=== PATIENT | male | born 1965 | race Caucasian/White ===

== ENCOUNTER 2016-11-08 08:34 | Outpatient (CLI) | payer MEDICARE ==
[~2016-11-08] VITALS: Ht 175.3 cm; Wt 100.0 kg
--- NOTE | ~2016-11-08 | OP ---
PATIENT NAME: SAMANTA OSEGUERA MEDICAL RECORD: [id number] :61 LOCATION:D.CAT ADMISSION DATE: SURGEON: RAYMOND STEIN MD DATE OF OPERATION: 11/08/2016 PROCEDURES: 1. PTCA stent RCA. 2. Left heart catheterization. 3. Selective coronary angiography. 4. Left ventriculogram. 5. Intravascular ultrasound. PROCEDURE IN DETAIL: After informed consent was obtained and after detailed explanation of risks, benefits as well as alternative therapies, the patient elected to proceed with angiogram and angioplasty. The right femoral area was prepped and draped in normal sterile fashion. The right femoral artery was cannulated via modified Seldinger technique with placement of 6-Haitian sheath. All catheters exchanged through this sheath. FINDINGS: Left ventriculogram was performed in the standard 30-degree CLEMONS view reveals preserved cardiac wall motion, ejection fraction estimated at 50%. SELECTIVE CORONARY ANGIOGRAPHY: 1. Left main showed no significant angiographic disease. 2. Left anterior descending has previously placed stent that is widely patent with no significant restenosis. No disease elsewise throughout the LAD or its branches. 3. Left circumflex has moderate irregularities, but no flow-limiting stenosis. 4. The right coronary has previously placed stent with greater than 80% in-stent restenosis confirmed by intravascular ultrasound. PTCA STENT OF THE RCA: The stent used is a 3.5 x 16 mm Promus. Result was 0% residual stenosis. OVERALL IMPRESSION: Successful percutaneous transluminal coronary angioplasty stent of the right coronary artery going from greater than 80% initial stenosis to 0% residual. TRANSINT:[id number] Voice Confirmation ID: [id number] DOCUMENT ID: [id number] RAYMOND STEIN MD CC: [id number] DICTATION DATE: 11/08/16 112 MACHINE DESIGNER: 11/08/16 1900 DEP CLI 11/08/16 [facility] [address] [place] [address]
--- NOTE | ~2016-11-08 | HEMODYNAMI ---
PATIENT:SAMANTA OSEGUERA MEDICAL RECORD: [id number] : 61 LOCATION:[facility] ADMISSION DATE: 11/08/16 Generatedon:11/08/201611:30 Patient name: SAMANTA OSEGUERA Patient #: [id number] SSN: [id number] : 1965 Date of study: 11/08/2016 Page: Of Hemodynamic Procedure Report Patient Data Patient Demographics Procedure consent was obtained First Name: SAMANTA Gender: Male Last Name: OUMAR : 1965 Middle Initial: KRISTEN Age: 51 year(s) Patient #: [id number] Race: SSN: [id number] Additional ID: [id number] Contact details Address: [address] [place] [address] ROAD State: [place] City: [facility] Zip code: [address] Past Medical History Allergies Allergen Reaction Date Comments Reported Other allergy 06/17/2014 ASA, Benzocaine, Lamictal, Neurotin, NSAIDS, Toradol, Trazadone, Ultram, Hydrocodone. Admission Admission Data Admission Date: 11/08/2016 Admission Time: 8:34 Admit Source: Other Height (in.): 71 BSA: 2.17 (m2) Height (cm.): 180.34 BMI: 29.85 (kg/m2) Weight (lbs.): 214 Weight (kg.): 97.07 Lab Results Lab Result Date: 11/08/2016 Lab Result Time: 0:00 Biochemistry Name Units Result Min Max BUN mg/dl 23 --(----)-* 7 18 Creatinine mg/dl 1.2 --(---*)-- 0.6 1.3 CBC Name Units Result Min Max Hemoglobin g/dl 16.4 --(--*-)-- 13.5 17.5 Procedure Procedure Types Cath Procedure Diagnostic Procedure LHC LHC w/Coronaries Thomas Insertion Procedure Description Procedure Date Procedure Date: 11/08/2016 Procedure Start Time: 11:03 Procedure End Time: 11:27 Procedure Staff Name Function Clint العراقي MD Performing Physician Asa Carrillo RT Scrub Venancio Martinez RN Nurse Ailyn Francis RT Monitor Procedure Data Cath Procedure Fluoroscopy Diagnostic fluoroscopy Total fluoroscopy Time: 3.6 time: 3.6 min min Diagnostic fluoroscopy Total fluoroscopy dose: 184 dose: 184 mGy mGy Contrast Material Contrast Material Type Amount (ml) Isovue 300 70 Entry Location Entry Primary Successful Side Size Upsize Upsize Entry Closure Succes sful Closure Location (Fr) 1 (Fr) 2 (Fr) Remarks Device Remarks Femoral Right 5 Fr 6 Fr Exoseal artery Short Estimated blood loss: 10 ml Diagnostic catheters Device Type Used For End Catheter Placement Cordis 5Fr Pigtail Procedure Catheter (MP) Cordis 5Fr JL 4.0 Procedure Catheter (MP) Cordis 5Fr 3DRC Catheter Procedure (MP) Procedure Complications No complications Procedure Medications Medication Administration Route Dosage Oxygen NC 2 l/min Lidocaine 2% added to field 20 Heparin Flush Bag added to field 2 bags (1000units/500ml NS) 0.9% NaCl I.V. 100 ml/hr Refer to Anesthesia Notes for Sedation Medications Heparin Bolus I.V. 4000 units Hemodynamics Rest BSA: 2.17 (m2) HGB: 16.4 (g/dl) O2 Consumption: Estimated: 249.59 (ml/min) O2 Co nsumption indexed: Estimated:115.02 (ml/min/m) Heart Rate: 60 (bpm) Pressure Samples Time Site Value (mmHg) Purpose Heart Use Rate(bpm) 11:04 LV 95/10,13 Snapshot 71 Gradients Valve Time Site Site Mean SEP/DFP Peak To Heart Use 1 2 (mmHg) (sec/min) Peak Rate (mmHg) (bpm) Aortic 11:04 LV AO 69 Snapshots Pre Cath Intra NCS Post Cath Vital Signs Time Heart Resp SPO2 NIBP Rhythm Pain Sedation Rate (ipm) (%) (mmHg) Status Level (bpm) 10:30:24 61 16 98 105/67(88) NSR 0 (11) 10(A) , No pain 10:34:40 62 18 99 115/64(86) NSR 0 (11) 10(A) , No pain 10:38:52 60 24 99 112/69(89) NSR 0 (11) 10(A) , No pain 10:43:06 62 20 97 114/65(83) NSR 0 (11) 10(A) , No pain 10:47:20 59 16 98 113/64(83) NSR 0 (11) 10(A) , No pain 10:51:34 63 16 95 111/57(88) NSR 0 (11) 10(A) , No pain 10:55:44 63 18 96 110/63(85) NSR 0 (11) 10(A) , No pain 10:59:56 65 17 99 111/64(80) NSR 0 (11) 10(A) , No pain 11:04:10 70 21 93 94/57(73) NSR 0 (11) 9(A) , No pain 11:08:20 71 17 98 106/61(77) NSR 0 (11) 9(A) , No pain 11:12:33 69 29 94 107/56(69) NSR 0 (11) 9(A) , No pain 11:16:50 69 27 92 92/47(65) NSR 0 (11) 9(A) , No pain 11:21:02 68 21 94 85/58(71) NSR 0 (11) 9(A) , No pain 11:25:14 69 20 93 87/50(77) NSR 0 (11) 9(A) , No pain 11:28:49 69 17 95 102/59(74) NSR 0 (11) 10(A) , No pain Medications Time Medication Route Dose Verified Delivered Reason Notes Effectiveness by by 10:47:40 Oxygen NC 2 Clint Craft used for l/min Malcom Martinez RN procedure 10:47:51 Lidocaine 2% added 20ml Clint Jaramillo for local pt sta dutch to vial Malcom العراقي MD anesthetic allergy to field oral benzocaine only in oragel. 10:48:01 Heparin Flush added 2 Clint Jaramillo used for Bag to bags Malcom العراقي MD procedure (1000units/500ml field NS) 10:48:11 0.9% NaCl I.V. 100 Clint Craft Per physician ml/hr Malcom Martinez RN 10:48:17 Refer to Clint Craft Anesthesia Notes Malcom Martinez RN for Sedation Medications 11:12:18 Heparin Bolus I.V. 4000 Clint Craft for verifi ed units Tauth MD Martinez RN anticoagulation with dr العراقي Procedure Log Time Note 10:18:10 Patient Height : 180.34 cm 10:18:16 Patient Weight : 97.07 kg 10:18:16 Admit Source: Other 10:18:52 Diagnostic Cath Status : Elective 10:19:24 Asa Carrillo RT(R) (CV) sent for patient. Start room use. 10:19:41 Time tracking: Regular hours 10:19:47 Plan of Care:Hemodynamics will remain stable., Cardiac rhythm will remain stable., Comfort level will be maintained., Respiratory function will remain adequate., Patient/ family verbilizes understanding of procedure., Procedure tolerated without complication., Recovers from procedure without complications.. 10:19:55 Patient received from Pre/Post Procedure Room to CCL 3 Alert and oriented. Tansferred to table in Supine position. 10:28:59 Warm blankets applied, and bianka hugger turned on for patient comfort. 10:28:59 Correct patient and procedure confirmed by team. 10:29:02 Signed procedure consent form obtained from patient. 10:29:07 ECG and BP/O2 sat monitors applied to patient. 10:29:14 Vital chart was started 10:29:40 H&P Date Dictated: 11/05/2016 Within 30 days and on chart., H&P Addendum completed by physician on day of procedure. (MUST COMPLETE FOR ALL OUTPATIENTS). 10:29:51 Pre-procedure instructions explained to patient. 10:29:53 Family in waiting room. 10:29:55 Patient NPO since Midnight. 10:30:01 Is the patient allergic to Iodine/contrast media? No. 10:37:24 Is patient on blood thinner?Yes 10:37:28 ACC The patient was administered the following blood thiners within the last 24 hours: ACCPlavix 10:37:30 Patient diabetic? No. 10:38:03 Previous problem with sedation/anesthesia? Yes TIVA 10:38:05 Snore? Yes 10:38:06 Sleep apnea? Yes 10:38:18 Patient pain scale 0/10 ?. 10:38:31 IV patent on arrival in right forearm with 0.9% NaCl at O. 10:40:42 Lab results completed and on chart. 10:40:49 Right groin area was prepped with chlora-prep and draped in sterile fashion 10:40:51 Alarms reviewed by R. N. 10:40:51 Sharps counted by scrub and verified by R.N. 10:40:54 Physician paged 10:41:30 lorraine Mobley present and monitoring patient for TIVA. 10:42:32 Baseline sample Acquired. 10:42:45 Rhythm: sinus rhythm 10:42:47 Full Disclosure recording started 10:43:11 Dentures? No ? 10:44:03 Zero performed for pressure channel P1 10:47:40 Oxygen 2 l/min NC was administered by Venancio Martinez RN; used for procedure; 10:47:51 Lidocaine 2% 20ml vial added to field was administered by Clint العراقي MD; for local anesthetic; pt states allergy to oral benzocaine only in oragel. 10:48:01 Heparin Flush Bag (1000units/500ml NS) 2 bags added to field was administered by Clint العراقي MD; used for procedure; 10:48:11 0.9% NaCl 100 ml/hr I.V. was administered by Venancio Martinez RN; Per physician; 10:48:17 Refer to Anesthesia Notes for Sedation Medications was administered by Venancio Martinez RN; ; 10:48:58 Lab Result : Creatinine 1.2 mg/dl 10:48:58 Lab Result : BUN 23 mg/dl 10:48:58 Lab Result : Hemoglobin 16.4 g/dl 10:59:02 Physician arrived 10:59:03 --------ALL STOP TIME OUT------ 10:59:04 Final Timeout: patient, procedure, and site verified with staff and physician. All members of the team are in agreement. 10:59:06 Right groin site verified by team. 10:59:13 Sedation plan: TIVA Propofol 10:59:27 Use device set Femoral Dx 10:59:30 Acist Syringe opened to sterile field. 10:59:39 Bag Decanter opened to sterile field. 10:59:40 Medline Cath Pack opened to sterile field. 10:59:40 Terumo 5Fr [place] Sheath opened to sterile field. 10:59:41 St Riley 260cm J .035 wire opened to sterile field. 10:59:42 Acist Hand Control opened to sterile field. 10:59:43 Acist Manifold opened to sterile field. 10:59:43 Diagnostic Infinity 5Fr Multipack catheter opened to sterile field. 10:59:44 Tegaderm 4 x 4 opened to sterile field. 11:00:38 Procedure started. 11:03:07 Local anesthetic to right femoral artery with Lidocaine 2% by Clint العراقي MD.INITIAL ACCESS ONLY 11:03:16 A 5 Fr sheath was inserted into the Right Femoral artery 11:03:46 A Cordis 5Fr Pigtail Catheter (MP) was advanced over the wire and used for Procedure. 11:04:38 EF : 50 % 11:04:56 Catheter removed. 11:05:03 A Cordis 5Fr JL 4.0 Catheter (MP) was advanced over the wire and used for Procedure. 11:05:10 LCA angiography performed. 11:05:33 Catheter removed. 11:05:41 A Cordis 5Fr 3DRC Catheter (MP) was advanced over the wire and used for Procedure. 11:06:48 RCA angiography performed. 11:09:18 Catheter removed. 11:09:36 Sheath upsized to a 6 Fr Short. 11:10:22 6 Fr #DRC SH guide catheter was inserted over the wire 11:10:31 Whisp wire advanced. 11:10:33 Wire advanced across lesion. 11:10:35 Medtronic Launcher 6Fr 3DRC SH guide catheter opened to sterile field. 11:10:48 Terumo 6Fr [place] Sheath opened to sterile field. 11:10:49 to be BasixCompak Inflation Kit opened to sterile field. 11:10:50 [place]ag[place] IVUS Catheter opened to sterile field. 11:10:51 Lafleur Whisper J 300cm 0.014 guide wire opened to sterile field. 11:11:13 IVUS catheter advanced over wire. 11:12:18 Heparin Bolus 4000 units I.V. was administered by Venancio Martinez RN; for anticoagulation; verified with dr العراقي 11:13:25 IVUS catheter removed over wire. 11:14:08 Inflation number: 1 A Euphora 3.5 x 15 Balloon was prepped and advanced across the Prox RCA, then inflated to 17 BJORN for 0:07 (min:sec). 11:15:04 Balloon removed over the wire. 11:16:38 Inflation Number: 2 A Promus Premier OTW 3.5 x 16 stent was prepped and advanced across the Prox RCA. The stent was deployed at 17 BJORN for 0:11 (min:sec). 11:16:52 Wire removed. 11:16:52 Guide catheter removed. 11:17:02 Sheath removed intact; hemostasis achieved with Exoseal to the Right Femoral artery. 11:17:14 Cordis 6Fr Exoseal opened to sterile field. 11:17:58 Procedure ended.(Physican Out) 11:18:32 Fluoroscopy time 03.60 minutes. 11:18:37 Fluoroscopy dose: 184 mGy 11:18:37 Flurop Dose total: 184 11:18:45 Contrast amount:Isovue 300 70ml. 11:18:50 Insertion/operative site no bleeding no hematoma. 11:18:55 Post right femoral artery:stable 11:19:10 Post Procedure Pulses reassessed and unchanged 11:19:14 Post-procedure physical assessment completed. ASA score P 2 - A patient with mild systemic disease as per Clint العراقي MD. 11:19:17 Post procedure rhythm: unchanged. 11:19:23 Estimated blood loss: 10 ml 11:19:24 Post procedure instruction explained to patient.Patient verbalizes understanding. 11:20:03 Patient needs reinforcement of post procedure teaching. 11:20:22 Procedure type changed to Cath procedure, Diagnostic procedure, LHC, LHC w/Coronaries, Thomas Insertion 11:20:23 Procedure and supply charges have been captured, reviewed, submitted and are correct. 11:21:01 16FR Thomas w/Drainage Bag opened to sterile field. 11:21:54 Thomas Catheter order per physician due to urinary retention. 11:22:10 Procedure Complication : No complications 11:27:30 Vital chart was stopped 11:27:30 See physician's report for complete and final results. 11:27:33 Report given to Pre/Post Procedure Room. 11:27:49 Patient transfered to Pre/Post Procedure Room with Stretcher. 11:27:51 Procedure ended. 11:27:51 Full Disclosure recording stopped 11:27:57 End room use (Document Last) Intervention Summary Intervention Notes Time ActionType Lesion and Equipment Action# Pressure Duration Attributes Used 11:14:08 Inflate Prox RCA Euphora 1 17 00:07 balloon 3.5 x 15 Balloon 11:16:38 [address] stent Prox RCA Promus 2 17 00:11 Premier OTW 3.5 x 16 stent Device Usage Item Name Manufacture Quantity Catalog Number Hospital Part Current Mini mal Lot# / Charge Number Stock Stock Serial# Code Acist Acist 1 38267 [id number] 134854 517708 20 Syringe Medical Systems Inc Bag Microtek 1 [id number] 79289 607188 5 Decanter Medical Inc. Medline Cardinal 1 [id number] 266507 45204 209641 5 Cath Pack Health Terumo 5Fr Terumo 1 [id number] 844521 965744 557433 [address] [facility] 1 357758 569186 253585 787777 30 260cm J .035 wire Acist Hand Acist 1 18919 768277 560786 541250 5 Control Medical Systems Inc Acist Acist 1 51732 386980 015466 318012 5 Manifold Medical Systems Inc Diagnostic Cardinal 1 [id number] 900768 61698 487085 30 Infinity Health 5Fr Multipack catheter Tegaderm 4 3M 1 [id number] 144673 278885 382293 5 x 4 Cordis 5Fr Cardinal 1 911509 5 Pigtail Health Catheter (MP) Cordis 5Fr Cardinal 1 034416 5 JL 4.0 Health Catheter (MP) Cordis 5Fr Cardinal 1 773974 5 3DRC Health Catheter (MP) Medtronic Medtronic 1 [id number] 945055 376269 192898 1 Launcher 6Fr 3DRC SH guide catheter Terumo 6Fr Terumo 1 [id number] 651594 636605 451108 40 [place] Sheath Merit Merit 1 [id number] 384528 525226 349784 15 BasixScouponidMantis Digital Arts Medical Inflation Kit [place] 1 [id number] 299661 340078 919444 8 [place] E[place] IVUS Catheter Lafleur Lafleur 1 [id number] 723162 585694 334498 5 Whisper J Vascular 300cm 0.014 guide wire Euphora 3.5 Medtronic 1 [id number] 718278 444877 573349 5 [id number] x 15 Balloon Promus [place] 1 [id number] 843345 605160 5 [id number] Premier OTW Scientific 3.5 x 16 stent Cordis 6Fr Cardinal 1 [id number] 928707 593172 682048 10 Exoseal Health 16FR Thomas Bard 1 [id number] 915365 323352 722625 5 w/Drainage Bag Signature Audit [place] Stage Time Signature Unsigned Intra-Procedure 11/08/2016 Ailyn Francis 11:30:27 AM RT(R) Signatures Monitor : Ailyn Francis Signature : RT Date : Time : [id number] [place] [address]
[~2016-11-08 08:34] MED LIST: AMBIEN10 MG PO; BRILINTA90 MG PO; COLACE100 MG PO; COUMADIN3 MG PO; COUMADIN5 MG PO; DEMEROL50 MG PO; DUONEB 2.5-0.5 M3 ML NEB; DUONEB 2.5-0.5 M3 ML UPD; DURAGESIC1 PATCH .1 TD; EFFEXOR XR150 MG; EFFEXOR XR150 MG PO; FLOMAX0.4 MG PO; FLOVENT DI50 MCG/DIS INH; FLUTICASONE PRO16 GM NASAL; HYDROCHLOROTH12.5 M1 PO; ISOSORBIDE MONO30 M1 PO; K-DUR20 MEQ PO; LEVAQUIN500 MG PO; METOPROLOL TART50 MG PO; MORPHINE SULFAT15 M3 PO; MS CONTIN30 MG PO; MULTIPLE VITAMI1 TA1 PO; MYSOLINE 50 MG50 MG PO; NEURONTIN 400400 MG PO; NEURONTIN800 MG PO; NICODERM C1 PATCH .3 TD; NITROSTAT0.4 MG SL; NYSTATIN ORAL SU5 ML PO; OXYCODONE HCL5 MG PO; PEPCID20 MG PO; PERCOCET 10/3251 TA1 PO; PERCOCET 5/3251 TA1 PO; PLAVIX75 MG PO; PROVENTIL HFA6.7 GM INH; SEROQUEL100 MG PO; SYMBICORT 16010.2 GM INH; SYMBICORT 80-10.2 GM INH; TYLENOL 8 HOUR650 MG PO; VENTOLIN HFA18 GM INH; VITAMIN B-1000 MCG/M IM; VITAMIN D5000 UNIT PO; ZITHROMAX250 MG PO
[2016-11-08] MEDS ORDERED: BUTRANS1 EAC4 TRANSDERM (09:28)
[2016-11-08] MEDS ORDERED: LYRICA150 MG PO (09:29)
[2016-11-08] MEDS ORDERED: CYCLOBENZAPRINE10 MG PO (09:30)
[2016-11-08 09:41] VITALS: BP 117/69; Ht 175.3 cm; Wt 100.0 kg
[2016-11-08 10:05] LABS: BASOPHILS 0.9 % (0-2); EOSINOPHILS 5.6 % (0-7); HEMATOCRIT 47.6 % (42.0-54.0); HEMOGLOBIN 16.4 g/dL (13.5-17.5); IMMATURE GRANULOCYTES 0.6 % (0-5); LYMPHOCYTES 27.8 % (15-50); MCH 31.7 pg (26.0-34.0); MCHC 34.5 g/dL (31.0-37.0); MCV 91.9 fL (80.0-100.0); MEAN PLATELET VOLUME 10.5 fL (7.4-10.4); MONOCYTES 11.2 % (2-11); NEUTROPHILS 53.9 % (40-80); PLATELET COUNT 232 10x3/uL (130-400); RBC 5.18 10x6/uL (4.20-6.10); RDW 14.1 % (11.5-14.5); WBC 9.9 10x3/uL (4.8-10.8)
[2016-11-08 10:29] LABS: ANION GAP 12.6 mmol/L (8-16); CALCIUM 10.2 mg/dL (8.5-10.1); CARBON DIOXIDE 28.8 mmol/L (21.0-32.0); CREATININE - SERUM 1.2 mg/dL (0.6-1.3); POTASSIUM - SERUM 4.4 mmol/L (3.5-5.1)
--- NOTE | 2016-11-08 11:54 | NUR ---
1140 RECEIVED PT FROM [facility]PLITTER, PT IS AWAKE, DENIES ANY C/O AT THIS TIME. DRESSING TO RIGHT GROIN IS CDI, NO BLEEDING OR HEMATOMA NOTED. AREA IS SOFT AND NON-TENDER. PEDAL PULSES PALPABLE. SODA SERVED AT PT REQUEST. TURKEY SANDWICH OFFERED, PT DECLINED STATING AGAINST HIS CAODAISM TO EAT ANYTHING WITH A BALD HEAD. IS AGREEABLE TO A TUNA SALAD SANDWICH AND THIS ORDERED FROM KITCHEN. CALL LIGHT IN REACH. PT HAS MEEK CATH TO GRAVITY DRAINAGE, APPROX 300 CC CLEAR YELLOW URINE IN BAG. PT STATES HAS TROUBLE URINATING WHILE ON BEDREST SO ALWAYS REQUESTS CATHETER. NO FAMILY AT BEDSIDE. INSTRUCTED PT TO KEEP HEAD TO PILLOW AND RIGHT LEG STRAIGHT AND PT VERBALIZES UNDERSTANDING.
--- NOTE | 2016-11-08 12:05 | NUR ---
1200 PT DENIES ANY C/O. RIGHT GROIN DRESSING IS CDI, AREA IS SOFT AND NONTENDER. VSS, WILL CONTINUE TO MONITOR.
--- NOTE | 2016-11-08 12:53 | NUR ---
1245 PT DENIES ANY C/O. DRESSING TO RIGHT GROIN IS CDI, NO BLEEDING OR HEMATOMA NOTED. PEDAL PULSES PALPABLE. TRICE KELLY SERVED. MEEK CATH DRAINING CLEAR YELLOW URINE. PT DENIES ANY CHEST DISCOMFORT. VSS.
--- NOTE | 2016-11-08 13:16 | NUR ---
1315 PT DENIES ANY C/O. DRESSING TO RIGHT GROIN IS CDI, NO BLEEDING OR HEMATOMA NOTED. CAP REFILL IS BRISK, PEDAL PULSES PALPABLE.
--- NOTE | 2016-11-08 14:14 | NUR ---
1335 PT C/O CHRONIC HIP AND TESTICLE PAIN, STATES HAS APPOINTMENT FOR NERVE CAUTERIZATION IN THE FUTURE FOR THIS PAIN, REQUESTS PAIN MED, NEW ORDER RECEIVED.
--- NOTE | 2016-11-08 14:17 | NUR ---
1420 PT SLEEPING, RR EVEN AND UNLABORED. RIGHT GROIN STABLE WITH NO BLEEDING OR HEMATOMA NOTED. PEDAL PULSES PALPABLE.
--- NOTE | 2016-11-08 17:28 | NUR ---
1500 PT AWAKE, DENIES ANY C/O AT THIS TIME. DRESSING TO RIGHT GROIN IS CDI, NO BLEEDING OR HEMATOMA NOTED. CAP REFILL IS BRISK, PEDAL PULSES PALPABLE. 1515 MEEK CATH DC'D WITH CATH TIP INTACT AFTER BULB DEFLATED. APPROX 1000 CC CLEAR YELLOW URINE NOTED TO BAG. PT MONET WELL. IV DC'D WITH CATH INTACT, PT SITTING UPRIGHT, DRESSING REMAINS CDI. 1530 PT HAS DRESSED FOR DC TO HOME. DR STEIN HAS ROUNDED ON PT. REVIEWED DC INSTRUCTIONS WITH PT WHO VERBALIZES UNDERSTANDING. INSTRUCTED PT TO RESUME HOME MEDICATIONS AND TAKE PLAVIX USUAL TONIGHT. PT VERBALIZES UNDERSTANDING. PT ESCORTED TO [facility] VIA FOR TRANSPORT TO HOME. PT WITHOUT C/O AT TIME OF DC.
== END 2016-11-08 17:10 | disposition home or self-care (01) ==
LOC: D.CATH 08:34
PROVIDERS: Internal Medicine Interventional Cardiology
DX: I25.119 Atherosclerotic heart disease of native coronary artery with unspecified angina pectoris (principal); T82.855A Stenosis of coronary artery stent, initial encounter; Z01.812 Encounter for preprocedural laboratory examination
CPT/HCPCS: 93458; 92978; C9600

== ENCOUNTER → 2017-03-19 14:08 | Outpatient (CLI) | payer MEDICARE ==
[2016-11-08 09:41] VITALS: BMI 32.5
[~2017-03-19 14:08] MED LIST changes: +BUTRANS1 EAC4 TRANSDERM; +CYCLOBENZAPRINE10 MG PO; +LYRICA150 MG PO
== END | disposition home or self-care (01) ==
LOC: D.CT 14:08
DX: R59.0 Localized enlarged lymph nodes (principal)

== ENCOUNTER 2017-05-01 12:58 | Observation (INO) | payer MEDICARE ==
[~2017-05-01] VITALS: Ht 175.3 cm; Wt 93.1 kg
--- NOTE | ~2017-05-01 | HEMODYNAMI ---
PATIENT:SAMANTA OSEGUERA MEDICAL RECORD: [id number] : 61 LOCATION[facility] [id number] ADMISSION DATE: 05/01/17 Generatedon:05/02/201712:34 Patient name: SAMANTA OSEGUERA Patient #: [id number] SSN: [id number] : 1965 Date of study: 05/02/2017 Page: Of Hemodynamic Procedure Report Patient Data Patient Demographics Procedure consent was obtained First Name: SAMANTA Gender: Male Last Name: OUMAR : 1965 [facility] Initial: KRISTEN Age: 51 year(s) Patient #: [id number] Race: SSN: [id number] Additional ID: [id number] Contact details Address: [address] [place] [address] ROAD State: [place] City: [facility] Zip code: [address] Past Medical History Allergies Allergen Reaction Date Comments Reported Other allergy 06/17/2014 ASA, Benzocaine, Lamictal, Neurotin, NSAIDS, Toradol, Trazadone, Ultram, Hydrocodone. Admission Admission Data Admission Date: 05/01/2017 Admission Time: 21:21 Arrival Date: 05/01/2017 Arrival Time: 21:21 Admit Source: Other Insurance Payor: Medicare Room #: D.2124 Lab Results Lab Result Date: 05/02/2017 Lab Result Time: 0:00 Biochemistry Name Units Result Min Max BUN mg/dl 14 --(--*-)-- 7 18 Creatinine mg/dl 1 --(--*-)-- 0.6 1.3 CBC Name Units Result Min Max Hemoglobin g/dl 16.7 --(---*)-- 13.5 17.5 Procedure Procedure Types Cath Procedure Diagnostic Procedure [facility] w/Coronaries Procedure Description Procedure Date Procedure Date: 05/02/2017 Procedure Start Time: 12:21 Procedure End Time: 12:33 Procedure Staff Name Function Clint العراقي MD Performing Physician Candelaria Robb RT Monitor Tejas Soliman MD Additional personnel Venancio Martinez RN Nurse Asa Carrillo RT Monitor Procedure Data Cath Procedure Fluoroscopy Diagnostic fluoroscopy Total fluoroscopy Time: 1.1 time: 1.1 min min Diagnostic fluoroscopy Total fluoroscopy dose: 333 dose: 333 mGy mGy Contrast Material Contrast Material Type Amount (ml) Isovue 300 55 Entry Location Entry Primary Successful Side Size Upsize Upsize Entry Closure Succes sful Closure Location (Fr) 1 (Fr) 2 (Fr) Remarks Device Remarks Femoral Right 5 Fr Exoseal artery Estimated blood loss: 10 ml Diagnostic catheters Device Type Used For End Catheter Placement MULTIPACK Pigtail 5 Fr Procedure catheter MULTIPACK JL 4.0 5Fr Procedure catheter MULTIPACK 3DRC 5Fr Procedure catheter Procedure Medications Medication Administration Route Dosage Oxygen NC 6 l/min Lidocaine 2% added to field 20 Heparin Flush Bag added to field 2 bags (1000units/500ml NS) 0.9% NaCl I.V. 100 ml/hr Refer to Anesthesia Notes for Sedation Medications Hemodynamics Rest HGB: 16.7 (g/dl) Heart Rate: 62 (bpm) Pressure Samples Time Site Value (mmHg) Purpose Heart Use Rate(bpm) 12:23 LV 88/8,9 Snapshot 58 Snapshots Pre Cath Intra NCS Post Cath Vital Signs Time Heart Resp SPO2 etCO2 NIBP Rhythm Pain Sedation Rate (ipm) (%) (mmHg) (mmHg) Status Level (bpm) 12:14:44 61 20 96 20.3 134/72(81) NSR 0 (11) 10(A) , No pain 12:18:58 60 17 97 39.9 109/70(85) NSR 0 (11) 10(A) , No pain 12:23:10 58 20 96 39.9 106/65(79) NSR 0 (11) 9(A) , No pain 12:27:20 56 18 96 39.2 103/63(76) NSR 0 (11) 9(A) , No pain 12:31:23 59 26 96 33.9 114/72(86) NSR 0 (11) 10(A) , No pain Medications Time Medication Route Dose Verified Delivered Reason Notes E ffectiveness by by 12:16:58 Oxygen NC 6 l/min Clint Craft used for Malcom Martinez rail car maintenance mechanic 12:17:05 Lidocaine 2% added 20ml Clint Jaramillo for local to vial Malcom العراقي MD anesthetic field 12:17:11 Heparin Flush added 2 bags Clint Jaramillo used for Bag to Malcom العراقي MD procedure (1000units/500ml field NS) 12:17:29 0.9% NaCl I.V. 100ml/hr Clint Craft Per Malcom Martinez RN physician 12:17:36 Refer to Clint Craft Anesthesia Notes Malcom Martinez RN for Sedation Medications Procedure Log Time Note 11:39:46 Ailyn Francis RT(R) sent for patient. Start room use. 11:39:47 Time tracking: Regular hours 11:39:52 Plan of Care:Hemodynamics will remain stable., Cardiac rhythm will remain stable., Comfort level will be maintained., Respiratory function will remain adequate., Patient/ family verbilizes understanding of procedure., Procedure tolerated without complication., Recovers from procedure without complications.. 11:40:14 Informed consent obtained and on chart 11:40:46 Admit Source: Other 11:40:54 Arrival Date: 05/01/2017 9:21:00 PM 11:41:07 Insurance Payor : Medicare 11:41:28 Lab Result : Hemoglobin 16.7 g/dl 11:41:28 Lab Result : Creatinine 1 mg/dl 11:41:28 Lab Result : BUN 14 mg/dl 12:13:27 Patient received from Med II to [facility] 2 Alert and oriented. Tansferred to table in Supine position. 12:13:29 Warm blankets applied, and bianka hugger turned on for patient comfort. 12:13:29 Correct patient and procedure confirmed by team. 12:13:32 Signed procedure consent form obtained from patient. 12:13:33 ECG and BP/O2 sat monitors applied to patient. 12:13:34 Vital chart was started 12:13:35 Baseline sample Acquired. 12:13:39 Rhythm: sinus rhythm 12:13:40 Full Disclosure recording started 12:13:47 H&P Date Dictated: 05/01/2017 Within 30 days and on chart., H&P Addendum completed by physician on day of procedure. (MUST COMPLETE FOR ALL OUTPATIENTS). 12:13:49 Pre-procedure instructions explained to patient. 12:13:51 Family unavailable. 12:13:53 Patient NPO since Midnight. 12:14:05 Is the patient allergic to Iodine/contrast media? No. 12:14:20 Is patient on blood thinner?Yes 12:14:23 ACC The patient was administered the following blood thiners within the last 24 hours: ACCPlavix 12:14:29 Snore? Yes 12:14:35 Airway obstruction? Yes COPD 12:14:39 Dentures? No ? 12:14:45 IV patent on arrival in right forearm with 0.9% NaCl at [facility]. 12:14:52 Lab results completed and on chart. 12:14:55 Right groin area was prepped with chlora-prep and draped in sterile fashion 12:14:56 Alarms reviewed by R. N. 12:14:57 Sharps counted by scrub and verified by R.N. 12:14:58 Physician paged 12:14:59 Physician arrived 12:15:00 --------ALL STOP TIME OUT------ 12:15:00 Final Timeout: patient, procedure, and site verified with staff and physician. All members of the team are in agreement. 12:15:04 Right groin site verified by team. 12:15:08 Physical assessment completed. ASA score P 2 - A patient with mild systemic disease as per Clint العراقي MD. 12:15:13 Sedation plan: TIVA Medication:Propofol 12:15:36 Tejas Soliman MD present and monitoring patient for TIVA. 12:16:01 Use device set Femoral Dx 12:16:03 ACIST Syringe (99358) opened to sterile field. 12:16:03 Bag Decanter (2002S) opened to sterile field. 12:16:03 Medline Cath Pack ([id number]) opened to sterile field. 12:16:04 SHEATH 5FR Glade Spring (NKY256) opened to sterile field. 12:16:04 DIAGNOSTIC WIRE .035 260cm J wire ([id number]) opened to sterile field. 12:16:06 ACIST Hand Control (13717) opened to sterile field. 12:16:06 ACIST Manifold (12374) opened to sterile field. 12:16:07 DIAGNOSTIC Multipack 5Fr catheter set ([id number]) opened to sterile field. 12:16:07 Tegaderm 4 x 4 (1626W) opened to sterile field. 12:16:08 PERCUTANEOUS ENTRY 19GA needle opened to sterile field. 12:16:58 Oxygen 6 l/min NC was administered by Venancio Martinez RN; used for procedure; 12:17:05 Lidocaine 2% 20ml vial added to field was administered by Clint العراقي MD; for local anesthetic; 12:17:11 Heparin Flush Bag (1000units/500ml NS) 2 bags added to field was administered by Clint العراقي MD; used for procedure; 12:17:29 0.9% NaCl 100ml/hr I.V. was administered by Venancio Martinez RN; Per physician; 12:17:36 Refer to Anesthesia Notes for Sedation Medications was administered by Venancio Martinez RN; ; 12:19:27 Patient diabetic? No. 12:19:32 Sleep apnea? Yes 12:19:34 Deviated septum? No 12:19:35 Opens mouth fully? Yes 12:19:37 Sticks out tongue? Yes 12:21:54 Procedure started. 12:21:58 Local anesthetic to right femoral artery with Lidocaine 2% by Clint العراقي MD.INITIAL ACCESS ONLY 12:22:08 Zero performed for pressure channel P1 12:23:01 A 5 Fr sheath was inserted into the Right Femoral artery 12:23:16 A MULTIPACK Pigtail 5 Fr catheter was advanced over the wire and used for Procedure. 12:24:03 LV hemodynamics recorded. 12:24:05 LV gram done using CLEMONS 12:24:10 EF : 55 % 12:24:13 Catheter removed. 12:24:23 A MULTIPACK JL 4.0 5Fr catheter was advanced over the wire and used for Procedure. 12:24:52 LCA angiography performed. 12:25:07 Catheter removed. 12:25:18 A MULTIPACK 3DRC 5Fr catheter was advanced over the wire and used for Procedure. 12:26:40 RCA angiography performed. 12:26:54 Catheter removed. 12:27:01 EXOSEAL 5Fr (EX500) opened to sterile field. 12:27:38 Sheath removed intact; hemostasis achieved with Exoseal to the Right Femoral artery. 12:27:41 Procedure ended.(Physican Out) 12::54 Fluoroscopy time 01.10 minutes. 12:28:02 Fluoroscopy dose: 333 mGy 12:28:02 Flurop Dose total: 333 12:28:07 Contrast amount:Isovue 300 55ml. 12:28:10 Sharps counted by scrub and verified by R.N. 12:31:30 Insertion/operative site no bleeding no hematoma. 12:31:34 Post-op/insertion site Right Femoral artery dressed using a 4 x 4 and Tegaderm. 12:32:09 Post right femoral artery:stable 12:32:59 Post procedure rhythm: sinus bradycardia 12:33:06 Estimated blood loss: 10 ml 12:33:08 Post procedure instruction explained to patient.Patient verbalizes understanding. 12:33:09 Patient needs reinforcement of post procedure teaching. 12:33:15 Procedure and supply charges have been captured, reviewed, submitted and are correct. 12:33:16 Vital chart was stopped 12:33:18 See physician's report for complete and final results. 12:33:35 Report given to [facility]. 12:33:39 Patient transfered to [facility] with Bed. 12:33:41 Procedure ended. 12:33:41 Full Disclosure recording stopped 12:33:46 End room use (Document Last) Device Usage Item Name Manufacture Quantity Catalog Hospital Part Current Minimal Lot# / Number Charge Number Stock Stock Serial# Code ACIST Acist 1 15294 620226 930237 844433 20 Syringe Medical (26633) Systems Inc Bag Decanter Microtek 1 2001S 518695 30121 369255 5 (2001S) Medical Inc. Medline Cath Cardinal 1 [id number] 149560 67440 245470 5 Pack Health ([id number]) SHEATH 5FR Terumo 1 [id number] 482358 221337 144003 40 Glade Spring (HJA680) DIAGNOSTIC [facility] 1 585487 088375 724365 527262 30 WIRE .035 260cm J wire (894007) ACIST Hand Acist 1 21521 506023 276358 615503 5 Control Medical (71221) Systems Inc ACIST Acist 1 28625 008190 456682 586197 5 Manifold Medical (04244) Systems Inc DIAGNOSTIC Cardinal 1 [id number] 172387 45629 072859 30 Multipack Health 5Fr catheter set (AW2750) Tegaderm 4 x 3M 1 1626W 428784 176022 288257 5 4 (1626W) PERCUTANEOUS Cook Medical 1 V64680 922709 094481 5 ENTRY 19GA needle MULTIPACK Cardinal 1 320922 5 Pigtail 5 Fr Health catheter MULTIPACK JL Cardinal 1 [id number] 5 4.0 5Fr Health catheter MULTIPACK Cardinal 1 869982 5 3DRC 5Fr Health catheter EXOSEAL 5Fr Cardinal 1 EX500 898106 799418 609927 10 (EX500) Health Signature Audit [place] Stage Time Signature Unsigned Intra-Procedure 05/02/2017 Asa Carrillo 12:34:52 PM RT(R) (CV) Signatures Monitor : Candelaria Robb RT Signature : Date : Time : Monitor : Asa Carrillo RT Signature : Date : Time : [place] [id number] [place] [address]
[2017-05-01 13:42] LABS: BASOPHILS 0.5 % (0-2); EOSINOPHILS 1.1 % (0-7); HEMATOCRIT 48.1 % (42.0-54.0); HEMOGLOBIN 16.7 g/dL (13.5-17.5); IMMATURE GRANULOCYTES 0.5 % (0-5); LYMPHOCYTES 13.2 % (15-50); MCH 30.8 pg (26.0-34.0); MCHC 34.7 g/dL (31.0-37.0); MCV 88.6 fL (80.0-100.0); MEAN PLATELET VOLUME 10.4 fL (7.4-10.4); NEUTROPHILS 79.7 % (40-80); PLATELET COUNT 242 10x3/uL (130-400); RBC 5.43 10x6/uL (4.20-6.10); RDW 13.9 % (11.5-14.5); WBC 11.1 10x3/uL (4.8-10.8)
[2017-05-01 13:53] LABS: ALBUMIN 4.4 g/dL (3.4-5.0); ALKALINE PHOSPHATASE 94 U/L (46-116); ALT (SGPT) 38 U/L (10-68); BILIRUBIN - TOTAL 0.45 mg/dL (0.2-1.3); CALC OSMOLALITY 281 mosm/kg (275-300); CALCIUM 9.7 mg/dL (8.5-10.1); CARBON DIOXIDE 24.6 mmol/L (21.0-32.0); CHLORIDE - SERUM 105 mmol/L (98-107); GLUCOSE 131 mg/dL (74-106); POTASSIUM - SERUM 4.4 mmol/L (3.5-5.1); PROTEIN - SERUM 7.6 g/dL (6.4-8.2); SODIUM 140 mmol/L (136-145); UREA NITROGEN 14 mg/dL (7-18); eGFR NON AFRICAN AMERICAN 83 mL/min (90-120)
[2017-05-01 14:07] LABS: CHOLESTEROL, TOTAL 233 mg/dL (0-200); CKMB 2.8 U/L (0.0-3.6); CREATINE KINASE 127 UL (21-232); HDL CHOLESTEROL 39 mg/dL (32-96); LDL CHOLESTEROL 147 mg/dL (0-100); LDL-HDL RATIO 3.8 ratio (1.5-3.5); PRO BNP 133 pg/mL (0-125); TRIGLYCERIDE 238 mg/dL (30-200)
[2017-05-01 14:08] LABS: TROPONIN-I < 0.017 ng/mL (0.000-0.060)
--- NOTE | 2017-05-01 22:30 | NUR ---
PT ARRIVED TO ROOM. AAO X4. IV RIGHT AC. PT UP AD [place]ELYN. GAIT STEADY. BAGS OF CLOTHES WITH PT. PUT AT BEDSIDE. PT ORIENTED TO ROOM AND UNIT. DENIES ANY NEEDS. WILL CPOC
[2017-05-02] VITALS (11 sets, daily range): BP systolic 102–126; BP diastolic 54–75; Ht 175.3 cm; Wt 93.1 kg
--- NOTE | 2017-05-02 02:00 | NUR ---
PT ASLEEP. C-PAP ON NO S/S OF DISTRESS. WILL CPOC
--- NOTE | 2017-05-02 08:08 | NUR ---
PT SITTING UP IN BED DENIES NEEDS WILL CONT TO MONITOR
--- NOTE | 2017-05-02 12:30 | NUR ---
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 R GROIN SITE WNL WITH DRESSING CDI. PT TO LAY FLAT X2 HOURS. PT COMPLAINS OF NOT BEING ABLE TO PEE. BLADDER SCAN SHOWS 385 CC OF URINE IN BLADDER. WILL OBTAIN ORDER FOR STRAIGHT CATH..
--- NOTE | 2017-05-02 13:29 | NUR ---
ATTEMPTED TO STRAIGHT CATH PT UNSUCCESSFULL. PT REFUSED FOR SOMEONE ELSE TO TRY. STATES HE JUST HAS A "SHY BLADDER" AND ONCE HE CAN SIT UP IT WILL EASE UP.
--- NOTE | 2017-05-02 17:47 | NUR ---
PT SITTING UP IN BED SLEEPING NO S/S DISTRESS NOTED. R GROIN SITE STILL WNL. PT DENIES ANY PAIN OR DISCOMFORT.
--- NOTE | 2017-05-02 19:28 | NUR ---
PT WALKED OUT INTO HALLWAY AND C/O UPPER ABD PAIN AND ASKS FOR PAIN MEDS. PT GAIT STEADY WALKED BACK TO ROOM. PT DENIES ANY OTHER NEEDS NO S/S OF DISTRESS. WILL CPOC
--- NOTE | 2017-05-02 20:41 | NUR ---
PAIN MED GIVEN FOR PAIN. PT DENIES ANY OTHER NEEDS. NO S/S OF DISTRESS. BED LOW AND CALL LIGHT IN REACH. WILL CPOC
[2017-05-03 00:10] VITALS: BP 102/54
--- NOTE | 2017-05-03 07:30 | NUR ---
RECEIVED PT IN BED AAOX4 RESP UNLABORED SKIN W/D COLOR PALE PT DENIES ANY NEEDS OR DISCOMFORT AT THIS TIME WILL CONTINUE TO MONITOR
[2017-05-03 08:07] VITALS: BP 120/64
[2017-05-03 12:20] VITALS: BP 106/64
[2017-05-03] MEDS ORDERED: ISOSORBIDE MONO30 M1 PO (13:07)
[2017-05-03 15:32] VITALS: BP 113/71
--- NOTE | 2017-05-03 16:30 | NUR ---
REVIEWED DISCHARGE INSTRUCTIONS WITH PT STATES UNDERSTANDING COPY GIVEN DCD SALINE LOCK TO RAC WITH IV CATHETER INTACT SITE FREE OF REDNESS OR EDEMA PT DISCHARGED HOME IN STABLE CONDITION VIA W/C WITH ALL PERSONAL BELONGINGS TO FRONT ENTRANCE
--- NOTE | 2017-05-14 15:46 | HP ---
PATIENT: SAMANTA OSEGUERA MEDICAL RECORD: [id number] ACCOUNT: [id number] LOCATION:[address] : 61 ADMISSION DATE: 05/01/17 HISTORY AND PHYSICAL EXAMINATION ADMITTING DIAGNOSES: 1. Angina. 2. Coronary artery disease. 3. Previous multivessel percutaneous transluminal coronary angioplasty stent. 4. Hypertension. 5. Hyperlipidemia. HISTORY OF PRESENT ILLNESS: Mr. Oseguera has extensive cardiac history and multiple stents in the last 3 days, been having chest pain today. His chest pain escalated. He has nausea and vomiting with it. His EKG is with no acute ST-T changes. He continues to have the symptomatology. REVIEW OF SYSTEMS: The patient reports easy bruising but reports no swollen glands. The patient reports no fever, no night sweats, no significant weight gain, no significant weight loss. No significant exercise tolerance. The patient reports no dry eyes, no irritation, no vision change. Patient reports no difficulty hearing and no ear pain. Patient reports no frequent nose bleeds or nose and sinus problems. Patient reports on arm pain on exertion. No shortness of breath while lying down. No history of heart murmur. Patient reports no cough, no wheezing or coughing up blood. Patient reports no abdominal pain, no vomiting. Normal appetite. No diarrhea and not vomiting blood. No nausea and no constipation. Patient reports no incontinence. No difficulty urinating. No hematuria. No increased frequency. Patient reports no muscle aches. No weakness, no arthralgias, no back pain. No swelling of the extremities. Patient reports no abnormal mole, no jaundice, no rashes. Reports no loss of consciousness. No weakness and no numbness. No seizures, dizziness, or headaches. The patient reports no depression, no sleep disturbance, feeling safe in a relationship and no alcohol abuse. Patient reports on fatigue. Reports no runny nose or sinus pressure. No itching, no hives, and no frequent sneezing. PHYSICAL EXAMINATION: GENERAL APPEARANCE: Well-nourished, well-developed, appears stated age. Level of distress, comfortable. PSYCHIATRIC: Mental status, alert, normal affect. Orientation, oriented to time, place and person. EYES: Lids and conjunctiva, noninjected. No discharge, no pallor. ENT: Lips, teeth, gums, normal dentition. Oropharynx, no cyanosis, no pallor. NECK: Carotid arteries, bilateral normal upstroke, no bruits, no thrills. JUGULAR VEINS: No jugular venous pressure or distention. CERVICAL LYMPH NODES: Nontender, nonenlarged. THYROID: Not enlarged. Nontender. No nodules. LUNGS: Respiratory effort, unlabored. CHEST: Normal curvature. No thoracic deformity. No chest wall tenderness. Percussion, resonant. Auscultation, clear. No wheezes, no rales, no rhonchi. CARDIOVASCULAR: Precordial exam, nondisplaced. No heaves or pericardial thrills. Rate and rhythm, regular. Heart sounds, normal S1, normal S2. No S3, no gallop, no rub. Systolic murmur, not heard. Diastolic murmur, not heard. EXTREMITIES: No cyanosis, no edema. Peripheral pulses, full and equal in all extremities, except as noted. No bruits appreciated. HISTORY AND PHYSICAL [id number] OSEGUERA,SAMANTA CASTELLANOSW ABDOMEN: Soft, nondistended. Normal aorta. No bruit. Nontender. No masses. Liver, nontender, no hepatomegaly. Spleen, nontender, no splenomegaly. MUSCULOSKELETAL: No joint tenderness. No joint swelling. No erythema. NEUROLOGICAL: Normal gait, normal strength, normal tone. SKIN: Warm and dry. OVERALL IMPRESSION: Chest pain compatible with angina; however, no acute EKG changes. We will admit for observation. Repeat troponin in the morning to see how he does with this chest pain. TRANSINT:[id number] Voice Confirmation ID: [id number] DOCUMENT ID: [id number] RAYMOND STEIN MD at 1546 CC: [id number] DICTATION DATE: 05/01/17 1520 SHINGLE INSPECTOR: 05/01/17 1538 DIS IN 05/03/17 [facility] [address] [place] [address]
--- NOTE | 2017-05-14 15:46 | DS ---
PATIENT:SAMANTA OSEGUERA :61 MEDICAL RECORD: [id number] DISCHARGE SUMMARY ADMISSION DATE: 05/01/17 DISCHARGE DATE: 05/03/17 DISCHARGE DIAGNOSES: 1. Chest pain. 2. Coronary artery disease. 3. Previous multivessel PTCA and stent. 4. Hypertension. HOSPITAL COURSE: This is a gentleman, who presented with chest pain compatible with angina; however, cardiac catheterization revealed no significant new coronary disease, wide patency of all previously placed stents. He was placed on Imdur. He will follow up with [facility] in 1 month. TRANSINT:[id number] Voice Confirmation ID: [id number] DOCUMENT ID: [id number] RAYMOND STEIN MD at 1546 CC: [id number] DICTATION DATE: 05/03/17845 NURSING HOME DIRECTOR: 05/03/17 0909 DIS IN 05/03/17 [facility] [address] [place] [address]
--- NOTE | 2017-05-14 15:46 | OP ---
PATIENT NAME: SAMANTA OSEGUERA MEDICAL RECORD: [id number] :61 LOCATION:D.M2 D.2124 ADMISSION DATE:05/01/17 SURGEON: RAYMOND STEIN MD DATE OF OPERATION: 05/02/2017 PROCEDURES: 1. Left heart catheterization. 2. Selective coronary angiography. 3. Left ventriculogram. INDICATION: Chest pain compatible with angina, coronary artery disease. PROCEDURE IN DETAIL: After informed consent was obtained and after detailed explanation of risks, benefits as well as alternative therapies, the patient elected to proceed with angiogram and heart catheterization. The right femoral area was prepped and draped in normal sterile fashion. The right femoral artery was cannulated via modified Seldinger technique with placement of 6-Sami sheath. All catheters exchanged through this sheath. FINDINGS: Left ventriculogram was performed in the standard 30-degree CLEMONS view, reveals good cardiac wall motion throughout all segments. Overall ejection fraction estimated at 60%. SELECTIVE CORONARY ANGIOGRAPHY: 1. Left main showed no significant angiographic disease. 2. Left anterior descending has a previously placed stent. This is widely patent with no significant restenosis. No disease elsewise throughout the LAD or its branches. 3. The left circumflex has moderate irregularities, but no flow-limiting stenosis. 4. The right coronary has previously placed stents, these are widely patent with no significant restenosis. No disease elsewise throughout the RCA or its branches. OVERALL IMPRESSION: Wide patency of the previously placed stents. No new disease. Center medical management on treatment of the chronic stable angina. TRANSINT:[id number] Voice Confirmation ID: [id number] DOCUMENT ID: [id number] RAYMOND STEIN MD at 1546 CC: [id number] DICTATION DATE: 05/02/17 1232 COMBATANT DIVER QUALIFIED: 05/02/17 1352 DIS IN 05/03/17 [place] [id number] [place] [id number]
== END 2017-05-03 16:30 | disposition home or self-care (01) ==
LOC: D.ER 12:58 → D.M2 21:21 → OBSVTIME 21:21 → D.M2 05-03 16:30
PROVIDERS: Emergency Medicine; ADMIT Internal Medicine Interventional Cardiology
DX: I25.118 Atherosclerotic heart disease of native coronary artery with other forms of angina pectoris (principal); I10 Essential (primary) hypertension; Z95.5 Presence of coronary angioplasty implant and graft; E78.5 Hyperlipidemia, unspecified

== ENCOUNTER 2017-05-18 16:23 | Emergency (ER) | payer MEDICARE ==
[2017-05-02 12:49] VITALS: BMI 30.3
[2017-05-18 17:16] LABS: BASOPHILS 0.5 % (0-2); EOSINOPHILS 1.3 % (0-7); HEMATOCRIT 46.5 % (42.0-54.0); IMMATURE GRANULOCYTES 0.4 % (0-5); LYMPHOCYTES 31.8 % (15-50); MCH 31.3 pg (26.0-34.0); MCHC 34.4 g/dL (31.0-37.0); MEAN PLATELET VOLUME 10.4 fL (7.4-10.4); MONOCYTES 6.2 % (2-11); NEUTROPHILS 59.8 % (40-80); PLATELET COUNT 240 10x3/uL (130-400); RBC 5.11 10x6/uL (4.20-6.10); RDW 13.8 % (11.5-14.5); WBC 7.6 10x3/uL (4.8-10.8)
[2017-05-18 17:31] LABS: ALBUMIN 4.4 g/dL (3.4-5.0); ALKALINE PHOSPHATASE 94 U/L (46-116); ALT (SGPT) 26 U/L (10-68); BILIRUBIN - TOTAL 0.29 mg/dL (0.2-1.3); CALC OSMOLALITY 277 mosm/kg (275-300); CALCIUM 9.7 mg/dL (8.5-10.1); CARBON DIOXIDE 30.1 mmol/L (21.0-32.0); CHLORIDE - SERUM 102 mmol/L (98-107); CREATININE - SERUM 1.1 mg/dL (0.6-1.3); GLUCOSE 88 mg/dL (74-106); POTASSIUM - SERUM 4.1 mmol/L (3.5-5.1); PROTEIN - SERUM 7.8 g/dL (6.4-8.2); SODIUM 139 mmol/L (136-145); UREA NITROGEN 14 mg/dL (7-18); eGFR NON AFRICAN AMERICAN 74 mL/min (90-120)
[2017-05-18 17:41] LABS: CHOL - HDL RATIO 5.9 ratio (2.3-4.9); CHOLESTEROL, TOTAL 217 mg/dL (0-200); CKMB 1.2 U/L (0.0-3.6); CREATINE KINASE 45 UL (21-232); HDL CHOLESTEROL 37 mg/dL (32-96); LDL CHOLESTEROL 131 mg/dL (0-100); LDL-HDL RATIO 3.5 ratio (1.5-3.5); TRIGLYCERIDE 245 mg/dL (30-200)
[2017-05-18 17:42] LABS: TROPONIN-I < 0.017 ng/mL (0.000-0.060)
== END 2017-05-18 18:30 | disposition home or self-care (01) ==
LOC: D.ER 16:23
PROVIDERS: Family Medicine
DX: R07.89 Other chest pain (principal); I50.9 Heart failure, unspecified; J44.9 Chronic obstructive pulmonary disease, unspecified; Z86.73 Personal history of transient ischemic attack (TIA), and cerebral infarction without residual deficits; I10 Essential (primary) hypertension; Z85.828 Personal history of other malignant neoplasm of skin

== ENCOUNTER 2017-06-25 00:14 | Emergency (ER) | payer MEDICARE ==
[2017-05-02 12:49] VITALS: BMI 30.3
== END 2017-06-25 02:23 | disposition home or self-care (01) ==
LOC: D.ER 00:14
DX: R59.0 Localized enlarged lymph nodes (principal); F17.200 Nicotine dependence, unspecified, uncomplicated; I50.9 Heart failure, unspecified; J44.9 Chronic obstructive pulmonary disease, unspecified; Z86.73 Personal history of transient ischemic attack (TIA), and cerebral infarction without residual deficits; I10 Essential (primary) hypertension

== ENCOUNTER 2017-07-31 00:40 | Inpatient (IN) | payer MEDICARE ==
[~2017-07-31] VITALS: Ht 175.3 cm; Wt 99.8 kg
[2017-07-31 01:58] LABS: BASOPHILS 0.7 % (0-2); EOSINOPHILS 0.3 % (0-7); HEMATOCRIT 45.4 % (42.0-54.0); HEMOGLOBIN 15.3 g/dL (13.5-17.5); IMMATURE GRANULOCYTES 0.5 % (0-5); MCH 30.6 pg (26.0-34.0); MCHC 33.7 g/dL (31.0-37.0); MCV 90.8 fL (80.0-100.0); MEAN PLATELET VOLUME 10.8 fL (7.4-10.4); MONOCYTES 15.4 % (2-11); NEUTROPHILS 69.1 % (40-80); RDW 14.4 % (11.5-14.5); WBC 7.7 10x3/uL (4.8-10.8)
[2017-07-31 02:08] LABS: PLATELET COUNT 174 10x3/uL (130-400)
[2017-07-31 02:18] LABS: ALBUMIN 4.5 g/dL (3.4-5.0); ALKALINE PHOSPHATASE 77 U/L (46-116); ALT (SGPT) 24 U/L (10-68); CALC OSMOLALITY 276 mosm/kg (275-300); CALCIUM 8.7 mg/dL (8.5-10.1); CARBON DIOXIDE 27.9 mmol/L (21.0-32.0); CHLORIDE - SERUM 98 mmol/L (98-107); CREATININE - SERUM 1.1 mg/dL (0.6-1.3); GLUCOSE 82 mg/dL (74-106); POTASSIUM - SERUM 3.3 mmol/L (3.5-5.1); PROTEIN - SERUM 8.1 g/dL (6.4-8.2); SODIUM 138 mmol/L (136-145); UREA NITROGEN 17 mg/dL (7-18); eGFR NON AFRICAN AMERICAN 74 mL/min (90-120)
[2017-07-31 02:29] LABS: CKMB 1.3 U/L (0.0-3.6); CREATINE KINASE 94 UL (21-232); TROPONIN-I < 0.017 ng/mL (0.000-0.060)
[2017-07-31 06:25] LABS: CKMB 1.3 U/L (0.0-3.6); CREATINE KINASE 75 UL (21-232); TROPONIN-I < 0.017 ng/mL (0.000-0.060)
[2017-07-31 11:51] LABS: CKMB 1.6 U/L (0.0-3.6); CREATINE KINASE 109 UL (21-232)
[2017-07-31 11:52] LABS: TROPONIN-I < 0.017 ng/mL (0.000-0.060)
[2017-07-31 18:59] LABS: CKMB 2.2 U/L (0.0-3.6); CREATINE KINASE 102 UL (21-232)
[2017-07-31 19:03] LABS: TROPONIN-I < 0.017 ng/mL (0.000-0.060)
[2017-07-31] MEDS ORDERED: KEFLEX500 MG PO (21:02)
[2017-07-31] MEDS ORDERED: MYSOLINE 50 MG50 MG PO (21:03)
[2017-07-31] MEDS ORDERED: DEXILANT30 MG PO (21:04)
[2017-07-31] MEDS ORDERED: DEPO-PROVER150 MG/ML (21:05)
[2017-07-31 21:06] VITALS: BP 149/77
[2017-08-01] VITALS (7 sets, daily range): BP systolic 118–149; BP diastolic 65–77; Ht 175.3 cm; Wt 99.8 kg
[2017-08-01 07:00] LABS: BASOPHILS 0.7 % (0-2); EOSINOPHILS 0.7 % (0-7); HEMATOCRIT 42.5 % (42.0-54.0); HEMOGLOBIN 14.3 g/dL (13.5-17.5); IMMATURE GRANULOCYTES 0.7 % (0-5); LYMPHOCYTES 25.6 % (15-50); MCH 30.6 pg (26.0-34.0); MCHC 33.6 g/dL (31.0-37.0); MCV 90.8 fL (80.0-100.0); MEAN PLATELET VOLUME 11.3 fL (7.4-10.4); MONOCYTES 13.8 % (2-11); NEUTROPHILS 58.5 % (40-80); RBC 4.68 10x6/uL (4.20-6.10); RDW 14.4 % (11.5-14.5)
[2017-08-01 07:17] LABS: ANION GAP 14.9 mmol/L (8-16); CALCIUM 8.7 mg/dL (8.5-10.1); CARBON DIOXIDE 26.5 mmol/L (21.0-32.0); CREATININE - SERUM 1.1 mg/dL (0.6-1.3); POTASSIUM - SERUM 3.4 mmol/L (3.5-5.1)
[2017-08-01 07:24] LABS: PLATELET COUNT 138 10x3/uL (130-400); WBC 4.4 10x3/uL (4.8-10.8)
[2017-08-01 08:47] LABS: APPEARANCE CLEAR (CLEAR); BILIRUBIN NEGATIVE (NEGATIVE); COLOR YELLOW (YELLOW); GLUCOSE NEGATIVE (NEGATIVE); KETONE NEGATIVE (NEGATIVE); NITRITE NEGATIVE (NEGATIVE); PROTEIN NEGATIVE (NEGATIVE); UROBILINOGEN NORMAL (NORMAL)
[2017-08-02 00:34] VITALS: BP 99/51
[2017-08-02 04:00] VITALS: BP 100/60
[2017-08-02 07:41] LABS: BASOPHILS 0.8 % (0-2); EOSINOPHILS 0.3 % (0-7); HEMATOCRIT 43.7 % (42.0-54.0); HEMOGLOBIN 14.9 g/dL (13.5-17.5); IMMATURE GRANULOCYTES 0.5 % (0-5); LYMPHOCYTES 44.9 % (15-50); MCH 30.9 pg (26.0-34.0); MCHC 34.1 g/dL (31.0-37.0); MCV 90.7 fL (80.0-100.0); MEAN PLATELET VOLUME 10.3 fL (7.4-10.4); MONOCYTES 15.4 % (2-11); NEUTROPHILS 38.1 % (40-80); PLATELET COUNT 134 10x3/uL (130-400); RBC 4.82 10x6/uL (4.20-6.10); RDW 14.4 % (11.5-14.5); WBC 3.8 10x3/uL (4.8-10.8)
[2017-08-02 07:49] LABS: CALCIUM 8.5 mg/dL (8.5-10.1); CARBON DIOXIDE 26.6 mmol/L (21.0-32.0); CREATININE - SERUM 1.1 mg/dL (0.6-1.3); POTASSIUM - SERUM 3.6 mmol/L (3.5-5.1)
[2017-08-02 08:38] VITALS: BP 110/77
[2017-08-02 10:43] VITALS: BP 136/71
[2017-08-02 15:34] VITALS: BP 138/68
[2017-08-02 20:30] VITALS: BP 139/85
[2017-08-03 04:30] VITALS: BP 100/61
[2017-08-03 06:08] LABS: BASOPHILS 1.9 % (0-2); EOSINOPHILS 2.4 % (0-7); HEMATOCRIT 43.1 % (42.0-54.0); HEMOGLOBIN 14.5 g/dL (13.5-17.5); IMMATURE GRANULOCYTES 0.2 % (0-5); LYMPHOCYTES 49.3 % (15-50); MCH 30.5 pg (26.0-34.0); MCHC 33.6 g/dL (31.0-37.0); MCV 90.5 fL (80.0-100.0); MEAN PLATELET VOLUME 11.4 fL (7.4-10.4); MONOCYTES 15.1 % (2-11); NEUTROPHILS 31.1 % (40-80); PLATELET COUNT 135 10x3/uL (130-400); RBC 4.76 10x6/uL (4.20-6.10); RDW 14.2 % (11.5-14.5); WBC 4.2 10x3/uL (4.8-10.8)
[2017-08-03 06:23] LABS: CALC OSMOLALITY 269 mosm/kg (275-300); CALCIUM 8.7 mg/dL (8.5-10.1); CARBON DIOXIDE 24.7 mmol/L (21.0-32.0); CHLORIDE - SERUM 100 mmol/L (98-107); GLUCOSE 119 mg/dL (74-106); POTASSIUM - SERUM 3.9 mmol/L (3.5-5.1); SODIUM 135 mmol/L (136-145); UREA NITROGEN 10 mg/dL (7-18); eGFR NON AFRICAN AMERICAN 83 mL/min (90-120)
[2017-08-03 08:01] LABS: APPEARANCE CLEAR (CLEAR); BILIRUBIN NEGATIVE (NEGATIVE); COLOR DK YELLOW (YELLOW); GLUCOSE NEGATIVE (NEGATIVE); KETONE NEGATIVE (NEGATIVE); NITRITE NEGATIVE (NEGATIVE); PROTEIN NEGATIVE (NEGATIVE); SPECIFIC GRAVITY 1.025 (1.005-1.020); UROBILINOGEN NORMAL (NORMAL)
[2017-08-03 08:22] VITALS: BP 96/52
[2017-08-03 11:55] VITALS: BP 117/68
[2017-08-03] MEDS ORDERED: SINGULAIR10 MG PO (12:13)
[2017-08-03] MEDS ORDERED: MUCINEX DM ER1 EAC1 PO (12:13)
[2017-08-03] MEDS ORDERED: FLUTICASONE PRO16 GM NASAL (12:14)
[2017-08-03] MEDS ORDERED: LEVAQUIN750 MG PO (12:15)
[2017-08-03 14:09] LABS: IMMUNOGLOBULIN A 289 mg/dL (90-386); IMMUNOGLOBULIN G 764 mg/dL (700-1600)
[2017-08-08 03:10] LABS: IMMUNOGLOBULIN E 42 IU/mL (0-100)
[2017-08-08 17:12] LABS: FUNGAL - ASP FLAVUS Negative (Neg:<1:1); FUNGAL - ASP NIGER Negative (Neg:<1:1); FUNGAL - ASPER FUMIGATUS Negative (Neg:<1:1)
== END 2017-08-03 16:28 | disposition home or self-care (01) | DRG 190 ==
LOC: D.ER 00:40 → D.EDHOLD 05:39 → D.M2 20:23
PROVIDERS: Family Medicine; Internal Medicine Nephrology; Internal Medicine Pulmonary Disease
DX: J44.0 Chronic obstructive pulmonary disease with (acute) lower respiratory infection (principal); J18.9 Pneumonia, unspecified organism; J44.1 Chronic obstructive pulmonary disease with (acute) exacerbation; I11.0 Hypertensive heart disease with heart failure; I50.9 Heart failure, unspecified; I25.10 Atherosclerotic heart disease of native coronary artery without angina pectoris; G40.909 Epilepsy, unspecified, not intractable, without status epilepticus; F31.9 Bipolar disorder, unspecified; G62.9 Polyneuropathy, unspecified; R59.1 Generalized enlarged lymph nodes; E83.119 Hemochromatosis, unspecified; G47.33 Obstructive sleep apnea (adult) (pediatric); J30.9 Allergic rhinitis, unspecified; Z95.5 Presence of coronary angioplasty implant and graft; Z86.73 Personal history of transient ischemic attack (TIA), and cerebral infarction without residual deficits; Z72.0 Tobacco use

== ENCOUNTER 2017-10-19 15:38 | Emergency (ER) | payer MEDICARE ==
[2017-08-01 12:46] VITALS: BMI 32.5
[~2017-10-19 15:38] MED LIST changes: +DEPO-PROVER150 MG/ML; +DEXILANT30 MG PO; +KEFLEX500 MG PO; +LEVAQUIN750 MG PO; +MUCINEX DM ER1 EAC1 PO; +SINGULAIR10 MG PO
[2017-10-19 16:18] LABS: BASOPHILS 0.2 % (0-2); EOSINOPHILS 0 % (0-7); HEMATOCRIT 44.9 % (42.0-54.0); HEMOGLOBIN 15.4 g/dL (13.5-17.5); IMMATURE GRANULOCYTES 0.9 % (0-5); LYMPHOCYTES 13.7 % (15-50); MCH 31.3 pg (26.0-34.0); MCHC 34.3 g/dL (31.0-37.0); MCV 91.3 fL (80.0-100.0); MEAN PLATELET VOLUME 10.9 fL (7.4-10.4); MONOCYTES 5.9 % (2-11); NEUTROPHILS 79.3 % (40-80); RBC 4.92 10x6/uL (4.20-6.10); RDW 15.2 % (11.5-14.5); WBC 18.4 10x3/uL (4.8-10.8)
[2017-10-19 16:26] LABS: PLATELET COUNT 273 10x3/uL (130-400)
[2017-10-19 16:34] LABS: ALBUMIN 3.7 g/dL (3.4-5.0); ALKALINE PHOSPHATASE 90 U/L (46-116); ALT (SGPT) 21 U/L (10-68); BILIRUBIN - TOTAL 0.26 mg/dL (0.2-1.3); CALC OSMOLALITY 288 mosm/kg (275-300); CALCIUM 9.1 mg/dL (8.5-10.1); CARBON DIOXIDE 27.1 mmol/L (21.0-32.0); CHLORIDE - SERUM 106 mmol/L (98-107); CREATININE - SERUM 1.2 mg/dL (0.6-1.3); GLUCOSE 131 mg/dL (74-106); POTASSIUM - SERUM 3.7 mmol/L (3.5-5.1); PROTEIN - SERUM 7.9 g/dL (6.4-8.2); SODIUM 144 mmol/L (136-145); UREA NITROGEN 12 mg/dL (7-18); eGFR NON AFRICAN AMERICAN 67 mL/min (90-120)
[2017-10-19 16:41] LABS: PRO BNP 161 pg/mL (0-125); TROPONIN-I < 0.017 ng/mL (0.000-0.060)
== END 2017-10-19 17:05 | disposition home or self-care (01) ==
LOC: D.ER 15:38
PROVIDERS: Physician Assistant
DX: R05 Cough (principal); R06.02 Shortness of breath; Z86.79 Personal history of other diseases of the circulatory system; Z87.09 Personal history of other diseases of the respiratory system; F17.200 Nicotine dependence, unspecified, uncomplicated

== ENCOUNTER 2017-11-18 13:19 | Inpatient (IN) | payer MEDICARE ==
[~2017-11-18] VITALS: Ht 175.3 cm; Wt 100.0 kg
[2017-11-18 14:41] VITALS: BP 135/83
[2017-11-18 14:46] LABS: APTT 24.4 SECONDS (22.8-39.4); INR 1.04 (0.85-1.17); PROTIME 13.2 SECONDS (11.6-15.0)
[2017-11-18 15:02] LABS: BASOPHILS 0.5 % (0-2); EOSINOPHILS 0.7 % (0-7); HEMATOCRIT 50.4 % (42.0-54.0); HEMOGLOBIN 17.8 g/dL (13.5-17.5); IMMATURE GRANULOCYTES 0.3 % (0-5); LYMPHOCYTES 20.5 % (15-50); MCH 31.6 pg (26.0-34.0); MCHC 35.3 g/dL (31.0-37.0); MCV 89.5 fL (80.0-100.0); MEAN PLATELET VOLUME 11.2 fL (7.4-10.4); MONOCYTES 8.3 % (2-11); NEUTROPHILS 69.7 % (40-80); RBC 5.63 10x6/uL (4.20-6.10); RDW 13.9 % (11.5-14.5); WBC 11.4 10x3/uL (4.8-10.8)
[2017-11-18 15:03] LABS: PLATELET COUNT 212 10x3/uL (130-400)
[2017-11-18 15:04] LABS: BILIRUBIN - TOTAL 0.56 mg/dL (0.2-1.3); CALC OSMOLALITY 264 mosm/kg (275-300); CALCIUM 10.1 mg/dL (8.5-10.1); CARBON DIOXIDE 20.2 mmol/L (21.0-32.0); CHLORIDE - SERUM 99 mmol/L (98-107); CREATININE - SERUM 1.3 mg/dL (0.6-1.3); GLUCOSE 77 mg/dL (74-106); POTASSIUM - SERUM 3.9 mmol/L (3.5-5.1); PRO BNP 44 pg/mL (0-125); SODIUM 133 mmol/L (136-145); TROPONIN-I < 0.017 ng/mL (0.000-0.060); UREA NITROGEN 13 mg/dL (7-18); eGFR NON AFRICAN AMERICAN 61 mL/min (90-120)
[2017-11-18 15:29] LABS: ALBUMIN 4.8 g/dL (3.4-5.0); ALKALINE PHOSPHATASE 104 U/L (46-116); ALT (SGPT) 21 U/L (10-68); CKMB 1.8 U/L (0.0-3.6); CREATINE KINASE 135 UL (21-232); PROTEIN - SERUM 8.6 g/dL (6.4-8.2)
[2017-11-18 17:39] VITALS: BP 128/82
[2017-11-18 18:30] VITALS: BP 122/83
[2017-11-18 20:30] VITALS: BP 127/79
[2017-11-18 21:32] VITALS: BP 135/85
[2017-11-18] MEDS ORDERED: TYLENOL #4 W/CO1 TAB PO (22:49)
[2017-11-18] MEDS ORDERED: VENTOLIN HFA18 GM INH (22:51)
[2017-11-19] VITALS (7 sets, daily range): BP systolic 100–162; BP diastolic 55–95; Ht 175.3 cm; Wt 100.0 kg
[2017-11-19 11:41] LABS: HEMATOCRIT 52.1 % (42.0-54.0); HEMOGLOBIN 18.2 g/dL (13.5-17.5); MCH 31.7 pg (26.0-34.0); MCHC 34.9 g/dL (31.0-37.0); MCV 90.8 fL (80.0-100.0); MEAN PLATELET VOLUME 11.1 fL (7.4-10.4); PLATELET COUNT 187 10x3/uL (130-400); RBC 5.74 10x6/uL (4.20-6.10)
[2017-11-19 11:43] LABS: CALCIUM 9.4 mg/dL (8.5-10.1); CREATININE - SERUM 1.1 mg/dL (0.6-1.3); POTASSIUM - SERUM 3.6 mmol/L (3.5-5.1)
[2017-11-19 11:45] LABS: WBC 8.4 10x3/uL (4.8-10.8)
[2017-11-19 11:46] LABS: CARBON DIOXIDE 28.6 mmol/L (21.0-32.0)
[2017-11-19 12:15] LABS: BASOPHILS 1 % (0-2); EOSINOPHILS 1 % (0-7); LYMPHOCYTES 15 % (15-50); MONOCYTES 8 % (2-11); NEUTROPHILS 63 % (40-80); PLATELET ESTIMATE NORMAL; PLATELET MORPHOLOGY GIANT PLTS PRESENT
[2017-11-19 20:21] LABS: APPEARANCE CLEAR (CLEAR); BILIRUBIN NEGATIVE (NEGATIVE); COLOR DK YELLOW (YELLOW); GLUCOSE NEGATIVE (NEGATIVE); KETONE NEGATIVE (NEGATIVE); NITRITE NEGATIVE (NEGATIVE); PROTEIN NEGATIVE (NEGATIVE); UROBILINOGEN NORMAL (NORMAL)
[2017-11-20 01:29] VITALS: BP 102/60
[2017-11-20 04:51] LABS: BASOPHILS 0.8 % (0-2); EOSINOPHILS 5.3 % (0-7); HEMATOCRIT 47.8 % (42.0-54.0); HEMOGLOBIN 16.1 g/dL (13.5-17.5); IMMATURE GRANULOCYTES 0.4 % (0-5); LYMPHOCYTES 39.6 % (15-50); MCH 30.6 pg (26.0-34.0); MCHC 33.7 g/dL (31.0-37.0); MCV 90.7 fL (80.0-100.0); MEAN PLATELET VOLUME 11.1 fL (7.4-10.4); MONOCYTES 9.1 % (2-11); NEUTROPHILS 44.8 % (40-80); PLATELET COUNT 201 10x3/uL (130-400); RBC 5.27 10x6/uL (4.20-6.10); RDW 13.9 % (11.5-14.5); WBC 8.3 10x3/uL (4.8-10.8)
[2017-11-20 05:09] VITALS: BP 92/56
[2017-11-20 05:14] LABS: CALC OSMOLALITY 274 mosm/kg (275-300); CALCIUM 9.1 mg/dL (8.5-10.1); CARBON DIOXIDE 26.4 mmol/L (21.0-32.0); CHLORIDE - SERUM 102 mmol/L (98-107); CREATININE - SERUM 0.9 mg/dL (0.6-1.3); GLUCOSE 101 mg/dL (74-106); POTASSIUM - SERUM 3.8 mmol/L (3.5-5.1); SODIUM 138 mmol/L (136-145); UREA NITROGEN 10 mg/dL (7-18); eGFR NON AFRICAN AMERICAN > 90 mL/min (90-120)
[2017-11-20 08:48] VITALS: BP 107/66
[2017-11-20] MEDS ORDERED: NICODERM C1 PATCH .1 TRANSDERM (10:04)
[2017-11-20] MEDS ORDERED: ELIQUIS5 MG PO ×2 (10:05→10:07)
[2017-11-20] MEDS ORDERED: ZITHROMAX500 MG PO (10:08)
[2017-11-20 10:48] VITALS: BP 119/64
== END 2017-11-20 11:55 | disposition home or self-care (01) | DRG 175 ==
LOC: D.ER 13:19 → D.M2 19:57
PROVIDERS: Family Medicine; Internal Medicine Nephrology
DX: I26.99 Other pulmonary embolism without acute cor pulmonale (principal); J96.21 Acute and chronic respiratory failure with hypoxia; J18.9 Pneumonia, unspecified organism; J44.0 Chronic obstructive pulmonary disease with (acute) lower respiratory infection; E87.1 Hypo-osmolality and hyponatremia; F41.9 Anxiety disorder, unspecified; M19.90 Unspecified osteoarthritis, unspecified site; G40.909 Epilepsy, unspecified, not intractable, without status epilepticus; I25.10 Atherosclerotic heart disease of native coronary artery without angina pectoris; E78.5 Hyperlipidemia, unspecified; I10 Essential (primary) hypertension; Z95.5 Presence of coronary angioplasty implant and graft; Z86.73 Personal history of transient ischemic attack (TIA), and cerebral infarction without residual deficits

== ENCOUNTER 2018-01-03 18:30 | Observation (INO) | payer MEDICARE ==
[~2018-01-03] VITALS: Ht 175.3 cm; Wt 97.4 kg
--- NOTE | ~2018-01-03 | HP ---
PATIENT: SAMANTA OSEGUERA MEDICAL RECORD: [id number] ACCOUNT: [id number] LOCATION:[address] : 61 ADMISSION DATE: 01/03/18 HISTORY AND PHYSICAL EXAMINATION ADMITTING DIAGNOSES: 1. Unstable angina. 2. Coronary artery disease. 3. Previous multivessel percutaneous transluminal coronary angioplasty and stent. 4. History of pulmonary embolus. 5. Xarelto anticoagulation. HISTORY OF PRESENT ILLNESS: This is a gentleman well known to us with a past history of coronary artery disease, previous multivessel PTCA and stent who presents with increasing episodes of chest pain, chest discomfort compatible with angina over the past 2 weeks to the point of having episodes of rest pain at this time, this is like that of his previous angina. PHYSICAL EXAMINATION: GENERAL APPEARANCE: Well nourished, well developed, appears stated age. Level of distress, comfortable. PSYCHIATRIC: Mental status, alert, normal affect. Orientation, oriented to time, place and person. EYES: Lids and conjunctivae, noninjected. No discharge, no pallor. ENT: Lips, teeth, gums, normal dentition. Oropharynx, no cyanosis, no pallor. NECK: Carotid arteries, bilateral normal upstroke, no bruits, no thrills. JUGULAR VEINS: No jugular venous pressure or distention. CERVICAL LYMPH NODES: Nontender, nonenlarged. THYROID: Not enlarged. Nontender. No nodules. LUNGS: Respiratory effort, unlabored. CHEST: Normal curvature. No thoracic deformity. No chest wall tenderness. Percussion, resonant. Auscultation, clear. No wheezes, no rales, no rhonchi. CARDIOVASCULAR: Precordial exam, nondisplaced. No heaves or pericardial thrills. Rate and rhythm, regular. Heart sounds, normal S1, normal S2. No S3, no gallop, no rub. Systolic murmur, not heard. Diastolic murmur, not heard. EXTREMITIES: No cyanosis, no edema. Peripheral pulses, full and equal in all extremities, except as noted. No bruits appreciated. ABDOMEN: Soft, nondistended. Normal aorta. No bruit. Nontender. No masses. Liver, nontender, no hepatomegaly. Spleen, nontender, no splenomegaly. MUSCULOSKELETAL: No joint tenderness. No joint swelling. No erythema. NEUROLOGICAL: Normal gait, normal strength, normal tone. SKIN: Warm and dry. REVIEW OF SYSTEMS: The patient reports easy bruising but reports no swollen glands. The patient reports no fever, no night sweats, no significant weight gain, no significant weight loss. No significant exercise tolerance. The patient reports no dry eyes, no irritation, no vision change. Patient reports no difficulty hearing and no ear pain. Patient reports no frequent nose bleeds or nose and sinus problems. Patient reports on arm pain on exertion. No shortness of breath while lying down. No history of heart murmur. Patient reports no cough, no wheezing or coughing up blood. Patient reports no abdominal pain, no vomiting. Normal appetite. No diarrhea and not vomiting blood. No nausea and no constipation. Patient reports no incontinence. No difficulty urinating. No hematuria. No increased frequency. Patient reports HISTORY AND PHYSICAL [id number] SAMANTA OSEGUERA no muscle aches. No weakness, no arthralgias, no back pain. No swelling of the extremities. Patient reports no abnormal mole, no jaundice, no rashes. Reports no loss of consciousness. No weakness and no numbness. No seizures, dizziness, or headaches. The patient reports no depression, no sleep disturbance, feeling safe in a relationship and no alcohol abuse. Patient reports on fatigue. Reports no runny nose or sinus pressure. No itching, no hives, and no frequent sneezing. OVERALL IMPRESSION: Accelerated angina, unstable fashion. We will proceed with coronary angiography, further care depends upon the findings of the angiography. TRANSINT:[id number] Voice Confirmation ID: [id number] DOCUMENT ID: [id number] RAYMOND STEIN MD at 1642 CC: [id number] DICTATION DATE: 01/04/18 1013 TERMINAL CARMAN: 01/04/18 1034 DIS IN 01/05/18 [facility] [address] [place] [address]
--- NOTE | ~2018-01-03 | EC ---
PATIENT:SAMANTA OSEGUERA DATE OF SERVICE: 01/03/18 SEX: M MEDICAL RECORD: [id number] DATE OF : 61 LOCATION:D.M2 D.210 AGE OF PATIENT: 52 ADMISSION DATE: 01/03/18 REFERRING PHYSICIAN: INTERPRETING PHYSICIAN: RAYMOND العراقي MD ECHOCARDIOGRAM REPORT ECHO CHARGES 4 ECHO COMPLETE Date: 01/04 CLINICAL DIAGNOSIS: CHEST PAIN HX OF CAD ECHOCARDIOGRAPHIC MEASUREMENTS (adult normal given) AC root (d.<3.7cm) 3.7 cm LV Septum d (<1.2 cm> 1.4 cm Valve Excursion 1.2 cm LV Septum (systole) 1.6 cm Left Atria (s.<4.0cm> 3.6 cm LVPW d(<1.2cm) 1.6 cm RV (d.<2.3cm) 3.5 cm LVPW (sytole) 1.9 cm LV diastole(<5.6CM) 4.8 cm MV E-F(>70mm/sec) cm LV systole 3.5 cm LVOT Diameter 1.9 cm MV exc.(>10mm) 1.3 cm Est.ejection fraction (50-75%) % DOPPLER: LVIT cm/sec A 99.0 cm/sec E 88.0 cm/sec LA cm/sec RVSP 17 mmHg LVOT 119 cm/sec AOP1/2T m/s Asc. Ao 155 cm/sec RVOT 99 cm/sec RA cm/sec PA 118 cm/sec AV Gradient Peak 9.63 mmHg AV Mean 5.21 mmHg AV Area 2.3 cm MV Gradient Peak 4.02 mmHg MV Mean 1.66 mmHg MV Area cm COMMENTS: Applications Coordinator: Elisa CAMACHO Event Attendant: 1 Dr. العراقي TAPE# PACS Pericardial Effusion N DATE OF SERVICE: 01/05/2018 PROCEDURE: Echocardiogram. FINDINGS: 1. Left ventricular chamber size is within normal limits. Left ventricular systolic function is normal. Overall ejection fraction estimated at 55%. 2. Left atrium is within normal limits at 3.6 cm. Right atrium and right ventricle chamber sizes are mildly dilated. 3. Valvular structures have normal structure and motion. ECHOCARDIOGRAM REPORT [id number] SAMANTA OSEGUERA 4. Doppler interrogation reveals no significant valvular insufficiency or stenosis. 5. No evidence of pericardial effusion or left ventricular thrombus. TRANSINT:[id number] Voice Confirmation ID: [id number] DOCUMENT ID: [id number] RAYMOND العراقي MD at 1642 CC: [id number] DICTATION DATE: 01/05/18 1230 FREIGHT CLERK: 01/05/18 1331 DIS IN 01/05/[address] [facility] [address] [place] [id number]
--- NOTE | ~2018-01-03 | OP ---
PATIENT NAME: SAMANTA OSEGUERA MEDICAL RECORD: [id number] :61 LOCATION:D.M2 D.2107 ADMISSION DATE:01/03/18 SURGEON: RAYMOND STEIN MD DATE OF OPERATION: 01/05/2018 PROCEDURES: 1. PTCA RCA. 2. Intravascular ultrasound. 3. Left heart catheterization. 4. Selective coronary angiography. 5. Left ventriculogram. INDICATION: Angina and coronary artery disease. PROCEDURE IN DETAIL: After informed consent was obtained and after a detailed description of the risks, benefits as well as alternative therapies, the patient elected to proceed with angiogram and angioplasty. The right femoral area was prepped and draped in normal sterile fashion. Right femoral artery was cannulated via modified Seldinger technique with placement of 6-Barbadian sheath. All catheters exchanged through this sheath. FINDINGS: The left ventriculogram was performed in standard 30-degree CLEMONS view, reveals good cardiac wall motion throughout all segments. Overall ejection fraction estimated 60%. SELECTIVE CORONARY ANGIOGRAPHY: 1. Left main has no significant angiographic disease. 2. Left anterior descending has moderate irregularities, but no flow-limiting stenosis. 3. The left circumflex has moderate irregularities, but no flow-limiting stenosis. 4. The right coronary artery has previously placed stent. There is up to 70% in-stent restenosis proximally. Intravascular ultrasound was attempted; however, due to the amount of stress in the proximal RCA, this could not be advanced to the lesion. We were able to advance a 3.0 balloon and do balloon dilatation up to 21 atmospheres. Result was 0% residual. OVERALL IMPRESSION: Successful PTCA for instent restenosis of the RCA going from 70% initial stenosis to 0% residual. TRANSINT:[id number] Voice Confirmation ID: [id number] DOCUMENT ID: [id number] RAYMOND STEIN MD at 1642 CC: [id number] DICTATION DATE: 01/05/18 1300 SYSTEMS ANALYST DEVELOPER: 01/05/18 1346 DIS IN 01/05/18 [place] [id number] [place] [id number]
--- NOTE | ~2018-01-03 | HEMODYNAMI ---
PATIENT:SAMANTA OSEGUERA MEDICAL RECORD: [id number] : 61 [facility] D.2107 [id number] ADMISSION DATE: 01/03/18 Generatedon:01/05/201813:04 Patient name: SAMANTA OSEGUERA Patient #: [id number] SSN: [id number] : 1965 Date of study: 01/05/2018 Page: Of Hemodynamic Procedure Report Patient Data Patient Demographics Procedure consent was obtained First Name: SAMANTA Gender: Male Last Name: OUMAR : 1965 [facility] Initial: RKISTEN Age: 52 year(s) Patient #: [id number] Race: SSN: [id number] Additional ID: [id number] Contact details [address]: [address] [place] [address] ROAD State: [place] City: [facility] Zip code: [address] Past Medical History Allergies Allergen Reaction Date Comments Reported Other allergy 06/17/2014 ASA, Benzocaine, Lamictal, Neurotin, NSAIDS, Toradol, Trazadone, Ultram, Hydrocodone. Admission Admission Data Admission Date: 01/03/2018 Admission Time: 23:45 Room #: D.2107 Lab Results Lab Result Date: 01/05/2018 Lab Result Time: 0:00 Biochemistry Name Units Result Min Max BUN mg/dl 20 --(----)*- 7 18 Creatinine mg/dl 1.2 --(---*)-- 0.6 1.3 CBC Name Units Result Min Max Hemoglobin g/dl 15.7 --(--*-)-- 13.5 17.5 Procedure Procedure Types Cath Procedure Diagnostic Procedure [facility] w/Coronaries FFR/IVUS Intra-Coronary IVUS Initial PCI Procedure PTCA PTCA Initial Procedure Description Procedure Date Procedure Date: 01/05/2018 Procedure Start Time: 12:42 Procedure End Time: 13:01 Procedure Staff Name Function Clint العراقي MD Performing Physician Zayra Avendaño RT Monitor Leroy Hewitt RT Scrub Bobby Alexander RN Nurse Tono Sanford SENIOR SHAREPOINT DEVELOPER Additional personnel Procedure Data Cath Procedure Fluoroscopy Diagnostic fluoroscopy Total fluoroscopy Time: 5.8 time: 5.8 min min Diagnostic fluoroscopy Total fluoroscopy dose: 681 dose: 681 mGy mGy Contrast Material Contrast Material Type Amount (ml) Isovue 300 83 Entry Location Entry Primary Successful Side Size Upsize Upsize Entry Closure Succes sful Closure Location (Fr) 1 (Fr) 2 (Fr) Remarks Device Remarks Femoral Right 5 Fr 6 Fr Exoseal artery Short Estimated blood loss: 10 ml Diagnostic catheters Device Type Used For End Catheter Placement MULTIPACK Pigtail 5 Fr Procedure catheter MULTIPACK JL 4.0 5Fr Procedure catheter MULTIPACK 3DRC 5Fr Procedure catheter Procedure Complications No complications Procedure Medications Medication Administration Route Dosage 0.9% NaCl I.V. 100 ml/hr Oxygen etCO2 Nasal cannula 3 l/min Heparin Flush Bag added to field 2 bags (1000units/500ml NS) Lidocaine 2% added to field 20 Refer to Anesthesia Notes for Sedation Medications Heparin Bolus I.V. 4000 units Hemodynamics Rest HGB: 15.7 (g/dl) Heart Rate: 62 (bpm) Snapshots Pre Cath Intra NCS Post Cath Vital Signs Time Heart Resp SPO2 etCO2 NIBP (mmHg) Rhythm Pain Sedation Rate (ipm) (%) (mmHg) Status Level (bpm) 12:32:38 59 29 100 0 178/88(155) NSR 0 (11) 10(A) , No pain 12:37:37 54 27 100 38.1 175/92(141) NSR 0 (11) 10(A) , No pain 12:42:32 58 17 98 22.4 151/79(107) NSR 0 (11) 8(A) , No pain 12:47:19 60 13 94 17.9 129/72(103) NSR 0 (11) 8(A) , No pain 12:52:08 64 14 93 11.9 124/68(88) NSR 0 (11) 8(A) , No pain 12:56:52 64 13 86 35.1 120/68(83) NSR 0 (11) 10(A) , No pain 13:01:39 67 17 94 38.8 120/71(88) NSR 0 (11) 10(A) , No pain Medications Time Medication Route Dose Verified Delivered Reason Notes Effectiveness by by 12:35:30 0.9% NaCl I.V. 100 Bobby Bobby Per physician ml/hr Benjamin Alexander RN RN 12:35:43 Oxygen etCO2 3 Bobby Bobby Per physician Nasal l/min Benjamin Alexander cannula RN RN 12:35:54 Heparin Flush added 2 Bobby Bobby used for Bag to bags Benjamin Alexander procedure (1000units/500ml field RN RN NS) 12:36:08 Lidocaine 2% added 20ml Bobby Bobby for local to vial Benjamin Alexander anesthetic field RN RN 12:39:38 Refer to Bobby Bobby for sedation Anesthesia Notes Benjamin Alexander for Sedation RN RN Medications 12:55:52 Heparin Bolus I.V. 4000 Bobby Bobby for units Benjamin Alexander anticoagulation RN event designer Log Time Note 12:12:41 Signed procedure consent form obtained from patient. 12:12:46 Leroy Suit RT(R) sent for patient. Start room use. 12:30:22 Time tracking: Regular hours (M-F 7:00 - 5:00) 12:30:25 Plan of Care:Hemodynamics will remain stable., Cardiac rhythm will remain stable., Comfort level will be maintained., Respiratory function will remain adequate., Patient/ family verbilizes understanding of procedure., Procedure tolerated without complication., Recovers from procedure without complications.. 12:30:31 Patient received from Med II to CCL 1 Alert and oriented. Tansferred to table in Supine position. 12:30:32 Warm blankets applied, and bianka hugger turned on for patient comfort. 12:30:33 Correct patient and procedure confirmed by team. 12:30:34 ECG and BP/O2 sat monitors applied to patient. 12:30:35 Vital chart was started 12:30:46 Full Disclosure recording started 12:30:54 H&P Date Dictated: 01/03/2018 Within 30 days and on chart.. 12:30:54 Pre-procedure instructions explained to patient. 12:30:55 Pre-op teaching completed and patient verbalized understanding. 12:30:56 Family unavailable. 12:30:57 Patient NPO since Midnight. 12:31:03 Is the patient allergic to Iodine/contrast media? No. 12:31:12 Baseline sample Acquired. 12:31:19 Rhythm: sinus rhythm 12:31:26 Is patient on blood thinner?Yes 12:31:32 PRE LOADED 12:31:34 Patient diabetic? No. 12:31:37 Previous problem with sedation/anesthesia? No ? 12:31:38 Snore? Yes 12:31:39 Sleep apnea? Yes 12:31:40 Deviated septum? No 12:31:41 Opens mouth fully? Yes 12:31:42 Sticks out tongue? Yes 12:31:45 Airway obstruction? Yes COPD 12:31:48 Dentures? No ? 12:32:01 Pre procedure: right dorsailis pedis pulse 1+ Palpable, but thready & weak; easily obliterated 12:32:03 Patient pain scale 0/10 ?. 12:32:06 IV patent on arrival in right hand with 0.9% NaCl at [facility]. 12:32:31 Lab Result : BUN 20 mg/dl 12:32:31 Lab Result : Hemoglobin 15.7 g/dl 12:32:31 Lab Result : Creatinine 1.2 mg/dl 12:32:39 Lab results completed and on chart. 12:32:41 Right groin area was prepped with chlora-prep and draped in sterile fashion 12:32:42 Alarms reviewed by R. N. 12:32:42 Sharps counted by scrub and verified by R.N. 12:35:30 0.9% NaCl 100 ml/hr I.V. was administered by Bobby Alexander RN; Per physician; 12:35:43 Oxygen 3 l/min etCO2 Nasal cannula was administered by Bobby Alexander RN; Per physician; 12:35:54 Heparin Flush Bag (1000units/500ml NS) 2 bags added to field was administered by Bobby Alexander RN; used for procedure; 12:36:08 Lidocaine 2% 20ml vial added to field was administered by Bobby Alexander RN; for local anesthetic; 12:38:05 Use device set Femoral Dx 12:38:07 ACIST Syringe (80990) opened to sterile field. 12:38:07 Bag Decanter () opened to sterile field. 12:38:08 ACIST Manifold (23567) opened to sterile field. 12:38:09 ACIST Hand Control (60798) opened to sterile field. 12:38:10 Tegaderm 4 x 4 (1626W) opened to sterile field. 12:38:11 Medline Cath Pack ([id number]) opened to sterile field. 12:38:12 DIAGNOSTIC WIRE .035 260cm J wire (478512) opened to sterile field. 12:38:13 DIAGNOSTIC Multipack 5Fr catheter set (SZ5585) opened to sterile field. 12:38:14 SHEATH Prelude 5Fr 0.035 (ZTZ-2X-63-035) opened to sterile field. 12:38:32 --------ALL STOP TIME OUT------ 12:38:32 Final Timeout: patient, procedure, and site verified with staff and physician. All members of the team are in agreement. 12:38:34 Right groin site verified by team. 12:38:37 Physical assessment completed. ASA score P 2 - A patient with mild systemic disease as per Clint العراقي MD. 12:38:41 Sedation plan: TIVA Medication:Propofol 12:39:38 Refer to Anesthesia Notes for Sedation Medications was administered by Bobby Alexander RN; for sedation; 12:42:06 Procedure started. 12:42:43 Local anesthetic to right femoral artery with Lidocaine 2% by Clint العراقي MD.INITIAL ACCESS ONLY 12:43:12 A 5 Fr sheath was inserted into the Right Femoral artery 12:43:23 A MULTIPACK Pigtail 5 Fr catheter was advanced over the wire and used for Procedure. 12:44:14 LV gram done using CLEMONS 12:44:17 Injector settings: Ml/sec: 10, Volume: 20, 12:44:38 EF : 50 % 12:44:39 Catheter removed. 12:44:43 A MULTIPACK JL 4.0 5Fr catheter was advanced over the wire and used for Procedure. 12:45:37 LCA angiography performed. 12:45:56 Catheter removed. 12:46:00 A MULTIPACK 3DRC 5Fr catheter was advanced over the wire and used for Procedure. 12:46:47 RCA angiography performed. 12:47:23 Catheter removed. 12:47:30 SHEATH 6FR [place] (BFP479) opened to sterile field. 12:47:35 INFLATOR Merit BasixCompak (WY5466) opened to sterile field. 12:47:39 CHOICE PT Extra Support 182cm wire ([id number]) opened to sterile field. 12:47:43 Corunna [place] Eagleye IVUS Catheter (48920L) opened to sterile field. 12:48:10 Sheath upsized to a 6 Fr Short. 12:48:45 GUIDE 6FR 3DRC catheter ([id number]) opened to sterile field. 12:48:52 6 Fr 3DRC guide catheter was inserted over the wire 12:49:12 CHOICE ES 182 wire advanced. 12:51:54 Wire advanced across lesion. 12:52:52 CHOICE PT Extra Support 182cm wire ([id number]) opened to sterile field. 12:53:38 HANSA WIRE CHOICE ES 182 wire advanced. 12:55:52 Heparin Bolus 4000 units I.V. was administered by Bobby Alexander RN; for anticoagulation; 12:56:34 IVUS catheter advanced over wire. 12:56:45 UNABLE TO CROSS LESION 12:56:46 IVUS catheter removed over wire. 12:56:51 Inflate balloon Inflation number: 1 A EUPHORA 3.0 x 15 Balloon ([id number]) was prepped and advanced across the Prox RCA, then inflated to 17 BJORN for 0:10 (min:sec). 12:56:55 Inflation number: 2 The EUPHORA 3.0 x 15 Balloon ([id number]) was reinflated across the Prox RCA, to 19 BJORN for 0:10 (min:sec). 12:57:05 Inflation number: 3 The EUPHORA 3.0 x 15 Balloon ([id number]) was reinflated across the Prox RCA, to 21 BJORN for 0:10 (min:sec). 12:57:25 Balloon removed over the wire. 12:57:26 Wire removed. 12:57:27 Wire removed. 12:57:27 Guide catheter removed. 12:57:45 EXOSEAL 6Fr (EX600) opened to sterile field. 12:57:55 Sheath removed intact; hemostasis achieved with Exoseal to the Right Femoral artery. 12:57:57 Procedure ended.(Physican Out) 12:58:08 Fluoroscopy time 05.80 minutes. 12:58:13 Flurop Dose total: 681 12:58:13 Fluoroscopy dose: 681 mGy 12:58:16 Contrast amount:Isovue 300 83ml. 12:58:17 Sharps counted by scrub and verified by R.N. 12:59:29 Post-op/insertion site Right Femoral artery dressed using a 4 x 4 and Tegaderm. 12:59:33 Post right femoral artery:stable, soft, clean and dry 12:59:37 Post-procedure physical assessment completed. ASA score P 2 - A patient with mild systemic disease as per Clint العراقي MD. 12:59:41 Post procedure rhythm: sinus rhythm 12:59:46 Estimated blood loss: 10 ml 12:59:48 Post procedure instruction explained to patient.Patient verbalizes understanding. 12:59:48 Patient needs reinforcement of post procedure teaching. 13:00:27 Procedure type changed to Cath procedure, Diagnostic procedure, LHC, LHC w/Coronaries, FFR/IVUS, Intra-Coronary IVUS Initial, PCI procedure, PTCA, PTCA Initial 13:01:06 Procedure and supply charges have been captured, reviewed, submitted and are correct. 13:01:08 Procedure Complication : No complications 13:01:10 Vital chart was stopped 13:01:14 See physician's report for complete and final results. 13:01:22 Report given to PCU. 13:01:24 Patient transfered to PCU with Bed. 13:01:26 Procedure ended. 13:01:26 Full Disclosure recording stopped 13:01:30 End room use (Document Last) Intervention Summary Intervention Notes Time ActionType Lesion and Equipment Action# Pressure Duration Attributes Used 12:56:51 Inflate Prox RCA EUPHORA 1 17 00:10 balloon 3.0 x 15 Balloon ([id number]) 12:56:55 Reinflate Prox RCA EUPHORA 2 19 00:10 balloon 3.0 x 15 Balloon ([id number]) 12:57:05 Reinflate Prox RCA EUPHORA 3 21 00:10 balloon 3.0 x 15 Balloon ([id number]) Device Usage Item Name Manufacture Quantity Catalog Number Hospital Part Current M inimal Lot# / Charge Number Stock Stock Serial# Code ACIST Syringe Acist 1 71151 619656 573652 394320 2 0 (04355) Medical Systems Inc Bag Decanter Microtek 1 427311 63898 457753 5 () Medical Inc. ACIST Manifold Acist 1 80081 931707 247916 192965 5 (63065) Medical Systems Inc ACIST Hand Acist 1 73542 063343 751955 256868 5 Control (25229) Medical Systems Inc Tegaderm 4 x 4 3M 1 1626W 815073 383771 569871 5 (1626W) Medline Cath Cardinal 1 [id number] 719246 60548 781151 5 Pack Health ([id number]) DIAGNOSTIC WIRE [facility] 1 594339 409466 429413 238491 3 0 .035 260cm J wire (289939) DIAGNOSTIC Cardinal 1 TZ7864 503089 11643 624555 3 0 Multipack 5Fr Health catheter set (HK5811) SHEATH Prelude Merit 1 [id number]-0F-64-035 332586 913514 754609 5 5Fr 0.035 Medical ([id number]-7W-74-035) MULTIPACK Cardinal 1 277875 5 Pigtail 5 Fr Health catheter MULTIPACK JL Cardinal 1 269488 5 4.0 5Fr Health catheter MULTIPACK 3DRC Cardinal 1 073732 5 5Fr catheter Health SHEATH 6FR Terumo 1 VBO175 909073 921279 617684 4 0 [place] (TQK043) INFLATOR Merit Merit 1 RB6573 123701 756348 340199 1 5 Buku Sisa K[employer]ta [employer] (JW8961) CHOICE PT Extra Moro 2 [id number] 090550 166049 193709 5 Support 182cm Scientific wire ([id number]) Corunna Corunna 1 [id number] 663635 187591 029136 8 [place] Eagleye IVUS Catheter (56015Z) GUIDE 6FR 3DRC Medtronic 1 [id number] 130495 424252 391238 1 catheter ([id number]) EUPHORA 3.0 x Medtronic 1 [id number] 005756 695112 571868 5 [id number] 15 Balloon ([id number]) EXOSEAL 6Fr Cardinal 1 EX600 764527 253031 216896 1 0 (EX600) Health Signature Audit [place] Stage Time Signature Unsigned Intra-Procedure 01/05/2018 Zayra Avendaño 1:04:17 PM RT(R) Signatures Monitor : Zayra Avendaño Signature : RT Date : Time : [facility] [address] [place] [address]
[~2018-01-03 18:30] MED LIST changes: +ELIQUIS5 MG PO; +NICODERM C1 PATCH .1 TRANSDERM; +TYLENOL #4 W/CO1 TAB PO; +ZITHROMAX500 MG PO
[2018-01-03 19:00] VITALS: BP 141/89
[2018-01-03 20:00] VITALS: BP 133/92
[2018-01-03 21:00] VITALS: BP 139/86
[2018-01-03 21:19] LABS: BASOPHILS 0.4 % (0-2); EOSINOPHILS 0.7 % (0-7); HEMATOCRIT 44.3 % (42.0-54.0); HEMOGLOBIN 15.7 g/dL (13.5-17.5); IMMATURE GRANULOCYTES 1.2 % (0-5); LYMPHOCYTES 23.8 % (15-50); MCH 30.7 pg (26.0-34.0); MCHC 35.4 g/dL (31.0-37.0); MCV 86.5 fL (80.0-100.0); MEAN PLATELET VOLUME 10.5 fL (7.4-10.4); MONOCYTES 10.8 % (2-11); NEUTROPHILS 63.1 % (40-80); RBC 5.12 10x6/uL (4.20-6.10); RDW 14.5 % (11.5-14.5); WBC 13.9 10x3/uL (4.8-10.8)
[2018-01-03 21:21] LABS: PLATELET COUNT 156 10x3/uL (130-400)
[2018-01-03 22:00] VITALS: BP 155/92
[2018-01-03 22:11] LABS: ALBUMIN 4.1 g/dL (3.4-5.0); ALKALINE PHOSPHATASE 86 U/L (46-116); ALT (SGPT) 26 U/L (10-68); BILIRUBIN - TOTAL 0.31 mg/dL (0.2-1.3); CALC OSMOLALITY 280 mosm/kg (275-300); CALCIUM 8.8 mg/dL (8.5-10.1); CARBON DIOXIDE 29.8 mmol/L (21.0-32.0); CHLORIDE - SERUM 100 mmol/L (98-107); CREATININE - SERUM 1.2 mg/dL (0.6-1.3); GLUCOSE 93 mg/dL (74-106); POTASSIUM - SERUM 3.5 mmol/L (3.5-5.1); PROTEIN - SERUM 7.2 g/dL (6.4-8.2); SODIUM 139 mmol/L (136-145); UREA NITROGEN 20 mg/dL (7-18); eGFR NON AFRICAN AMERICAN 67 mL/min (90-120)
[2018-01-03 22:15] LABS: CREATINE KINASE 70 UL (21-232); TROPONIN-I < 0.017 ng/mL (0.000-0.060)
[2018-01-03 23:00] VITALS: BP 161/95
[2018-01-04] VITALS (7 sets, daily range): BP systolic 136–171; BP diastolic 78–97; Ht 175.3 cm; Wt 97.4 kg
[2018-01-04 00:27] LABS: CKMB 1.8 U/L (0.0-3.6); CREATINE KINASE 163 UL (21-232)
[2018-01-04 00:28] LABS: TROPONIN-I < 0.017 ng/mL (0.000-0.060)
[2018-01-04] MEDS ORDERED: MEDROL DOSE PACK4 MG PO (02:39)
[2018-01-04] MEDS ORDERED: EFFEXOR (02:43)
[2018-01-04 07:30] LABS: CKMB 1.8 U/L (0.0-3.6); CREATINE KINASE 81 UL (21-232); TROPONIN-I < 0.017 ng/mL (0.000-0.060)
[2018-01-04 12:42] LABS: CREATINE KINASE 78 UL (21-232); TROPONIN-I < 0.017 ng/mL (0.000-0.060)
[2018-01-05 00:57] VITALS: BP 131/75
[2018-01-05 05:52] VITALS: BP 124/68
[2018-01-05 07:59] VITALS: BP 109/63
[2018-01-05] MEDS ORDERED: ZITHROMAX250 MG PO (10:31)
[2018-01-05] MEDS ORDERED: XARELTO20 MG PO (11:40)
[2018-01-05 11:59] VITALS: BP 142/79
[2018-01-05] MEDS ORDERED: PLAVIX75 MG PO (13:53)
[2018-01-05 15:59] VITALS: BP 137/89
== END 2018-01-05 18:51 | disposition home or self-care (01) ==
LOC: D.ER 18:30 → OBSVTIME 23:45 → D.M2 23:45
PROVIDERS: Emergency Medicine; Family Medicine
DX: I25.119 Atherosclerotic heart disease of native coronary artery with unspecified angina pectoris (principal); Z95.5 Presence of coronary angioplasty implant and graft; T82.855A Stenosis of coronary artery stent, initial encounter; Y83.8 Other surgical procedures as the cause of abnormal reaction of the patient, or of later complication, without mention of misadventure at the time of the procedure; Z86.711 Personal history of pulmonary embolism; Z79.01 Long term (current) use of anticoagulants

== ENCOUNTER 2018-02-05 21:11 | Observation (INO) | payer MEDICARE ==
[~2018-02-05] VITALS: Ht 175.3 cm; Wt 100.0 kg
--- NOTE | ~2018-02-05 | HEMODYNAMI ---
PATIENT:SAMANTA OSEGUERA MEDICAL RECORD: [id number] : 61 [facility]# [id number] ADMISSION DATE: 02/06/18 Generatedon:02/06/201812:56 Patient name: SAMANTA OSEGUERA Patient #: [id number] SSN: [id number] : 1965 Date of study: 02/06/2018 Page: Of Hemodynamic Procedure Report Patient Data Patient Demographics Procedure consent was obtained First Name: SAMANTA Gender: Male Last Name: OUMAR : 1965 [facility] Initial: KRISTEN Age: 52 year(s) Patient #: [id number] Race: SSN: [id number] Additional ID: [id number] Contact details [address]: [address] [place] [address] ROAD State: [place] City: [facility] Zip code: [address] Past Medical History Allergies Allergen Reaction Date Comments Reported Other allergy 06/17/2014 ASA, Benzocaine, Lamictal, Neurotin, NSAIDS, Toradol, Trazadone, Ultram, Hydrocodone. Admission Admission Data Admission Date: 02/06/2018 Admission Time: 0:25 Room #: D.E01 Procedure Procedure Types Cath Procedure Diagnostic Procedure C LH w/Coronaries FFR/IVUS Intra-Coronary IVUS Initial Sedation Charges Moderate Sedation up to 30 minutes PCI Procedure Coronary Stent Coronary Stent Initial Procedure Description Procedure Date Procedure Date: 02/06/2018 Procedure Start Time: 12:24 Procedure End Time: 12:53 Procedure Staff Name Function Clint العراقي MD Performing Physician Candelaria Robb RT Monitor Ailyn Francis RT Scrub Arnaldo Silva RN Nurse Corey Benítez MD Additional personnel Procedure Data Cath Procedure Fluoroscopy Diagnostic fluoroscopy Total fluoroscopy Time: time: 10.5 min 10.5 min Diagnostic fluoroscopy Total fluoroscopy dose: dose: 1041 mGy 1041 mGy Contrast Material Contrast Material Type Amount (ml) Isovue 300 0 Entry Location Entry Primary Successful Side Size Upsize Upsize Entry Closure Succes sful Closure Location (Fr) 1 (Fr) 2 (Fr) Remarks Device Remarks Femoral Right 5 Fr 6 Fr Exoseal artery Short Estimated blood loss: 5 ml Diagnostic catheters Device Type Used For End Catheter Placement MULTIPACK Pigtail 5 Fr Multi-vessel catheter Angiography MULTIPACK JL 4.0 5Fr Left Coronary catheter Angiography MULTIPACK 3DRC 5Fr Right Coronary catheter Angiography Procedure Complications No complications Procedure Medications Medication Administration Route Dosage Oxygen etCO2 Nasal cannula 2 l/min Heparin Flush Bag added to field 2 bags (1000units/500ml NS) 0.9% NaCl I.V. 100 ml/hr Refer to Anesthesia Notes for Sedation Medications Plavix P.O. 300 mg Heparin Bolus I.V. 4000 units Hemodynamics Rest Heart Rate: 72 (bpm) Pressure Samples Time Site Value (mmHg) Purpose Heart Use Rate(bpm) 12:27 LV 83/20,22 Snapshot 72 12:27 LV 130/19,20 Snapshot 58 Snapshots Pre Cath Intra NCS Post Cath Vital Signs Time Heart Resp SPO2 etCO2 NIBP (mmHg) Rhythm Pain Sedation Rate (ipm) (%) (mmHg) Status Level (bpm) 12:13:44 69 16 96 0 172/99(145) NSR 0 (11) 10(A) , No pain 12:18:06 64 17 100 34.5 150/96(126) NSR 0 (11) 10(A) , No pain 12:22:20 61 16 99 33 154/92(136) NSR 0 (11) 10(A) , No pain 12:27:34 69 18 94 29.2 122/78(102) NSR 0 (11) 10(A) , No pain 12:31:44 70 17 96 30 128/77(92) NSR 0 (11) 10(A) , No pain 12:35:58 73 17 93 36.7 109/68(83) NSR 0 (11) 10(A) , No pain 12:40:05 73 17 97 33.7 115/67(88) NSR 0 (11) 10(A) , No pain 12:44:15 75 17 97 26.2 119/66(91) NSR 0 (11) 10(A) , No pain 12:48:25 82 17 95 42 108/65(75) NSR 0 (11) 10(A) , No pain 12:52:31 82 16 96 37.5 117/71(90) NSR 0 (11) 10(A) , No pain Medications Time Medication Route Dose Verified Delivered Reason Notes Effectiveness by by 12:19:42 Oxygen etCO2 2 Clint Mcintosh Per physician Nasal l/min Malcom Silva RN cannula 12:19:50 Heparin Flush added 2 Clint Mcintosh used for Bag to bags Malcom Silva RN procedure (1000units/500ml field NS) 12:20:01 0.9% NaCl I.V. 100 Clint Mcintosh Per physician ml/hr Malcom Silva RN 12:20:10 Refer to Clint Mcintosh Per physician Anesthesia Notes Malcom Silva RN for Sedation Medications 12:24:52 Plavix P.O. 300 Clint Mcintosh for mg Malcom Silva RN antiplatelet therapy 12:40:13 Heparin Bolus I.V. 4000 Clint Mcintosh for units Malcom Silva RN anticoagulation Procedure Log Time Note 11:45:09 Ailyn PICKENS(R) sent for patient. Start room use. 11:57:10 Time tracking: Regular hours (M-F 7:00 - 5:00) 11:57:15 Plan of Care:Hemodynamics will remain stable., Cardiac rhythm will remain stable., Comfort level will be maintained., Respiratory function will remain adequate., Patient/ family verbilizes understanding of procedure., Procedure tolerated without complication., Recovers from procedure without complications.. 12:03:14 Patient received from ED to CCL 2 Alert and oriented. Tansferred to table in Supine position. 12:03:15 Warm blankets applied, and bianka hugger turned on for patient comfort. 12:03:15 Correct patient and procedure confirmed by team. 12:03:16 Signed procedure consent form obtained from patient. 12:03:18 ECG and BP/O2 sat monitors applied to patient. 12:12:32 Vital chart was started 12:12:34 Baseline sample Acquired. 12:12:39 Rhythm: sinus rhythm 12:12:40 Full Disclosure recording started 12:12:51 H&P Date Dictated: 02/06/2018 New H&P dictated by physician.. 12:12:52 Pre-procedure instructions explained to patient. 12:12:52 Pre-op teaching completed and patient verbalized understanding. 12:12:53 Family in waiting room. 12:12:56 Patient NPO since Midnight. 12:12:57 Is the patient allergic to Iodine/contrast media? No. 12:12:59 Was the patient premedicated? No 12:13:00 Is patient on blood thinner?Yes 12:13:02 ACC The patient was administered the following blood thiners within the last 24 hours: ACCPlavix 12:13:33 Patient diabetic? No. 12:13:36 Previous problem with sedation/anesthesia? No ? 12:13:39 Snore? Yes 12:13:40 Sleep apnea? Yes 12:13:40 Deviated septum? No 12:13:41 Opens mouth fully? Yes 12:13:42 Sticks out tongue? Yes 12:13:44 Airway obstruction? No ? 12:13:46 Dentures? No ? 12:13:50 Pre procedure: right dorsailis pedis pulse 2+ Normal; easily identifiable; not easily obliterated 12:13:52 Pre procedure: left dorsailis pedis pulse 2+ Normal; easily identifiable; not easily obliterated 12:13:54 Patient pain scale 0/10 ?. 12:14:14 IV patent on arrival in left forearm with 0.9% NaCl at [facility]. 12:14:17 Lab results completed and on chart. 12:14:22 Right groin area was prepped with chlora-prep and draped in sterile fashion 12:14:23 Alarms reviewed by R. N. 12:14:23 Sharps counted by scrub and verified by R.N. 12:14:54 Corey Benítez MD present and monitoring patient for TIVA. 12:15:07 Physician arrived 12:15:07 --------ALL STOP TIME OUT------ 12:15:08 Final Timeout: patient, procedure, and site verified with staff and physician. All members of the team are in agreement. 12:15:10 Right groin site verified by team. 12:15:12 Physical assessment completed. ASA score P 2 - A patient with mild systemic disease as per Clint العراقي MD. 12:15:29 Sedation plan: TIVA Medication:Propofol 12:19:42 Oxygen 2 l/min etCO2 Nasal cannula was administered by Arnaldo Silva RN; Per physician; 12:19:50 Heparin Flush Bag (1000units/500ml NS) 2 bags added to field was administered by Arnaldo Silva RN; used for procedure; 12:20:01 0.9% NaCl 100 ml/hr I.V. was administered by Arnaldo Silva RN; Per physician; 12:20:10 Refer to Anesthesia Notes for Sedation Medications was administered by Arnaldo Silva RN; Per physician; 12:22:22 Procedure started. 12:24:40 Local anesthetic to right femoral artery with Lidocaine 2% by Clint العراقي MD.INITIAL ACCESS ONLY 12:24:52 Plavix 300 mg P.O. was administered by Arnaldo Silva RN; for antiplatelet therapy; 12:26:16 A 5 Fr sheath was inserted into the Right Femoral artery 12::24 Use device set Femoral Dx 12:26:26 ACIST Syringe (87618) opened to sterile field. 12:26:27 Bag Decanter (2002S) opened to sterile field. 12:26:27 Medline Cath Pack ([id number]) opened to sterile field. 12:26:28 DIAGNOSTIC WIRE .035 260cm J wire (020996) opened to sterile field. 12:26:29 ACIST Hand Control (19709) opened to sterile field. 12:26:29 ACIST Manifold (42352) opened to sterile field. 12:26:30 DIAGNOSTIC Multipack 5Fr catheter set (MD5449) opened to sterile field. 12:26:30 Tegaderm 4 x 4 (1626W) opened to sterile field. 12:26:31 SHEATH Prelude 5Fr 0.035 (JOP-1A-18-035) opened to sterile field. 12:26:51 A MULTIPACK Pigtail 5 Fr catheter was advanced over the wire and used for Multi-vessel Angiography. 12::24 LV hemodynamics recorded. 12:27:25 LV gram done using CLEMONS 12::28 Injector settings: Ml/sec: 5, Volume: 15, 12:27:53 EF : 55 % 12::19 Catheter removed. 12:28:24 A MULTIPACK JL 4.0 5Fr catheter was advanced over the wire and used for Left Coronary Angiography. 12:29:15 LCA angiography performed. :: Injector settings: Ml/sec: 3, Volume: 6, 12:29:55 Catheter removed. 12:29:59 A MULTIPACK 3DRC 5Fr catheter was advanced over the wire and used for Right Coronary Angiography. 12:30:41 RCA angiography performed. 12:30:45 Injector settings: Ml/sec: 3, Volume: 6, 12:31:23 Catheter removed. 12:32:56 Proceeding to intervention. 12:33:26 GUIDE 6FR 3DRC catheter (GS42UAN) opened to sterile field. 12:33:27 SHEATH Prelude 6Fr 0.035 (UNU-5V-67-035) opened to sterile field. 12:33:58 Cash [place] IVUS Catheter ([id number]) opened to sterile field. 12:33:59 INFLATOR Merit BasixCompak (DD3181) opened to sterile field. 12:34:01 CHOICE PT Extra Support 182cm wire ([id number]) opened to sterile field. 12:34:27 Sheath upsized to a 6 Fr Short. 12:34:32 6 Fr 3drc guide catheter was inserted over the wire 12:38:07 Guide Catheter removed. unable to cannulate vessel. 12:38:18 GUIDE 6FR AR 1.0 catheter (YK1WG67) opened to sterile field. 12:38:33 6 Fr ar 1 guide catheter was inserted over the wire 12:38:59 choice pt wire advanced. 12:39:29 Wire advanced across lesion. 12:40:13 Heparin Bolus 4000 units I.V. was administered by Arnaldo Silva RN; for anticoagulation; 12:40:59 CHOICE PT Extra Support 182cm wire ([id number]) opened to sterile field. 12:43:24 2nd choice pt wire advanced down RCA 12:44:01 Inflate balloon Inflation number: 1 A EUPHORA 3.0 x 15 Balloon ([id number]) was prepped and advanced across the Prox RCA, then inflated to 21 BJORN for 0:10 (min:sec). 12:44:14 Inflation number: 2 The EUPHORA 3.0 x 15 Balloon ([id number]) was reinflated across the Prox RCA, to 21 BJORN for 0:10 (min:sec). 12:44:40 Inflation number: 3 The EUPHORA 3.0 x 15 Balloon ([id number]) was reinflated across the Prox RCA, to 21 BJORN for 0:10 (min:sec). 12:44:54 Balloon removed over the wire. 12:45:09 IVUS catheter advanced over wire. 12:46:49 IVUS pass to RCA lesion performed. 12:46:50 IVUS catheter removed over wire. 12:47:54 Place stent Inflation Number: 4 A AHRRY RX 3.5 x 15 stent ([id number]) was prepped and advanced across the Prox RCA. The stent was deployed at 15 BJORN for 0:10 (min:sec). 12:48:00 Inflation number: 5 The stent balloon was then re-inflated across the Prox RCA to 15 BJORN for 0:10 (min:sec). 12:49:31 Stent catheter was removed intact over wire. 12:49:32 Wire removed. 12:49:32 Guide catheter removed. 12:50:12 EXOSEAL 6Fr (EX600) opened to sterile field. 12:50:21 Sheath removed intact; hemostasis achieved with Exoseal to the Right Femoral artery. 12:50:23 Procedure ended.(Physican Out) 12:51:16 Fluoroscopy time 10.50 minutes. 12:51:25 Flurop Dose total: 1041 12:51:25 Fluoroscopy dose: 1041 mGy 12:51:33 Contrast amount:Isovue 300 0ml. 12:51:41 Post right femoral artery:stable 12:51:44 Post-op/insertion site Right Femoral artery dressed using a 4 x 4 and Tegaderm. 12:51:49 Post procedure rhythm: unchanged. 12:51:52 Estimated blood loss: 5 ml 12:51:53 Post procedure instruction explained to patient.Patient verbalizes understanding. 12:51:54 Patient needs reinforcement of post procedure teaching. 12:52:35 Procedure type changed to Cath procedure, Diagnostic procedure, LHC, LHC w/Coronaries, FFR/IVUS, Intra-Coronary IVUS Initial, Sedation Charges, Moderate Sedation up to 30 minutes, PCI procedure, Coronary Stent, Coronary Stent Initial 12:52:37 Procedure and supply charges have been captured, reviewed, submitted and are correct. 12:52:41 Procedure Complication : No complications 12:52:45 Vital chart was stopped 12:52:45 See physician's report for complete and final results. 12:52:56 Report given to Pre/Post Procedure Room. 12:52:59 Patient transfered to Pre/Post Procedure Room with Stretcher. 12:53:02 Procedure ended. 12:53:02 Full Disclosure recording stopped 12:53:08 ACC-PCI Only Patient was given prescriptions, or instructed by Clint العراقي MD to start/continue the following medications upon discharge: Plavix 12:53:10 End room use (Document Last) Intervention Summary Intervention Notes Time ActionType Lesion and Equipment Used Action# Pressure Duration Attributes 12:44:01 Inflate Prox RCA EUPHORA 3.0 x 1 21 00:10 balloon 15 Balloon ([id number]) 12:44:14 Reinflate Prox RCA EUPHORA 3.0 x 2 21 00:10 balloon 15 Balloon ([id number]) 12:44:40 Reinflate Prox RCA EUPHORA 3.0 x 3 21 00:10 balloon 15 Balloon ([id number]) 12:47:54 Place stent Prox RCA HARRY RX 3.5 x 4 15 00:10 15 stent ([id number]) 12:48:00 Reinflate Prox RCA HARRY RX 3.5 x 5 15 00:10 stent 15 stent balloon ([id number]) Device Usage Item Name Manufacture Quantity Catalog Number Hospital Part Current Minimal Lot# / Charge Number Stock Stock Serial# Code ACIST Syringe Acist 1 89761 842793 541295 967400 20 (17529) Medical Systems Inc Bag Decanter Microtek 1 2001S 674217 23724 993545 5 (2001S) Medical Inc. Medline Cath Cardinal 1 [id number] 962841 38965 107358 5 Pack Health ([id number]) DIAGNOSTIC WIRE [facility] [place] 1 577676 170613 894898 604708 30 .035 260cm J wire (775861) ACIST Hand Acist 1 09025 732959 063385 412750 5 Control (64321) Medical Systems Inc ACIST Manifold Acist 1 80310 643788 000280 686878 5 (81016) Medical Systems Inc DIAGNOSTIC Cardinal 1 SZ5074 267760 96659 844462 30 Multipack 5Fr Health catheter set (TD0453) Tegaderm 4 x 4 3M 1 1626W 340446 474405 505547 5 (1626W) SHEATH Prelude Merit 1 OEE-1P-31-035 828825 850646 539357 5 5Fr 0.035 Medical (PCT-3U-04-035) MULTIPACK Cardinal 1 017973 5 Pigtail 5 Fr Health catheter MULTIPACK JL Cardinal 1 823947 5 4.0 5Fr Health catheter MULTIPACK 3DRC Cardinal 1 292566 5 5Fr catheter Health GUIDE 6FR 3DRC Medtronic 1 [id number] 748742 731020 447925 1 catheter ([id number]) SHEATH Prelude Merit 1 CGI-0N-89-35 783546 6038746 515363 5 6Fr 0.035 Medical (XXC-7A-24-035) Cash Cash 1 25036Y 337963 157228 315578 8 [place] IVUS Catheter (43605Q) INFLATOR Merit Merit 1 TA2995 480559 612400 222617 15 Jelastic Medical (WT2759) CHOICE PT Extra [place] 2 [id number] 343582 339331 439842 5 Support 182cm Scientific wire ([id number]) GUIDE 6FR AR Medtronic 1 [id number] 141446 53817 451663 1 1.0 catheter (XC4NZ07) EUPHORA 3.0 x Medtronic 1 [id number] 055698 573403 929614 5 [id number] 15 Balloon ([id number]) HARRY RX 3.5 x Medtronic 1 [id number] 325942 9012026 204659 5 [id number] 15 stent ([id number]) EXOSEAL 6Fr Cardinal 1 EX600 872622 319675 825795 10 (EX600) Health Signature Audit [place] Stage Time Signature Unsigned Intra-Procedure 02/06/2018 Candelaria Robb 12:56:54 PM RT(R) Signatures Monitor : Candelaria Robb RT Signature : Date : Time : [facility] [address] [place] [address]
--- NOTE | ~2018-02-05 | OP ---
PATIENT NAME: SAMANTA OSEGUERA MEDICAL RECORD: [id number] :61 [facility] ADMISSION DATE:02/06/18 SURGEON: RAYMOND STEIN MD DATE OF OPERATION: 02/06/2018 PROCEDURES: 1. PTCA stent RCA. 2. Intravascular ultrasound. 3. Left heart catheterization. 4. Selective coronary angiography. 5. Left ventriculogram. INDICATION: Unstable angina. DESCRIPTION OF PROCEDURE IN DETAIL: After informed consent was obtained and after a detailed description of risks, benefits as well as alternative therapies, the patient elected to proceed with angiogram and angioplasty. The right femoral area was prepped and draped in normal sterile fashion. Right femoral artery was cannulated via modified Seldinger technique with placement of 6-Tongan sheath. All catheters exchanged through this sheath. FINDINGS: Left ventriculogram was performed in standard 30-degree CLEMONS view, reveals good cardiac wall motion throughout all segments. Overall ejection fraction estimated 60%. SELECTIVE CORONARY ANGIOGRAPHY: 1. Left main is with no significant angiographic disease. 2. Left anterior descending has moderate irregularities, but no flow-limiting stenosis. Previously placed stent is widely patent with no significant restenosis. 3. Left circumflex has moderate irregularities, but no flow-limiting stenosis. 4. The right coronary artery has previously placed stents that have greater than 70% stenosis just after the previously placed stents. PTCA STENT OF THE RCA: The stent used was a 3.5 x 15 mm [employer] Pont. Result was 0% residual stenosis. OVERALL IMPRESSION: Successful PTCA stent of the RCA going from greater than 75% initial stenosis to 0% residual. TRANSINT:[id number] Voice Confirmation ID: [id number] DOCUMENT ID: [id number] RAYMOND STEIN MD at 1616 CC: [id number] DICTATION DATE: 02/06/18 1259 HOSPICE CARE SALES CONSULTANT: 02/06/18 1302 ADM IN [place] [id number] [place] [id number]
--- NOTE | ~2018-02-05 | CN ---
PATIENT NAME:SAMANTA OSEGUERA MEDICAL RECORD: [id number] : 61 LOCATION:[facility] ADMIT DATE: 02/06/18 ACCOUNT: [id number] CONSULTING PHYSICIAN: RAYMOND STEIN MD REFERRING PHYSICIAN: KATIE AMES MD DATE OF CONSULTATION: 02/06/2018 ADMITTING DIAGNOSES: 1. Angina. 2. Coronary artery disease. 3. Previous multivessel percutaneous transluminal coronary angioplasty stent. 4. Hypertension. 5. Hyperlipidemia. 6. Smoking. 7. COPD. HISTORY OF PRESENT ILLNESS: Mr. Oseguera presents with chest pain, chest discomfort compatible with angina, has been going on for 2 days just like that of his previous angina. His EKG has nonspecific ST-T abnormalities. He continues to have episodes of pain. PHYSICAL EXAMINATION: GENERAL APPEARANCE: Well-nourished, well-developed, appears stated age. Level of distress, comfortable. PSYCHIATRIC: Mental status, alert, normal affect. Orientation, oriented to time, place and person. EYES: Lids and conjunctiva, noninjected. No discharge, no pallor. ENT: Lips, teeth, gums, normal dentition. Oropharynx, no cyanosis, no pallor. NECK: Carotid arteries, bilateral normal upstroke, no bruits, no thrills. JUGULAR VEINS: No jugular venous pressure or distention. CERVICAL LYMPH NODES: Nontender, nonenlarged. THYROID: Not enlarged. Nontender. No nodules. LUNGS: Respiratory effort, unlabored. CHEST: Normal curvature. No thoracic deformity. No chest wall tenderness. Percussion, resonant. Auscultation, clear. No wheezes, no rales, no rhonchi. CARDIOVASCULAR: Precordial exam, nondisplaced. No heaves or pericardial thrills. Rate and rhythm, regular. Heart sounds, normal S1, normal S2. No S3, no gallop, no rub. Systolic murmur, not heard. Diastolic murmur, not heard. EXTREMITIES: No cyanosis, no edema. Peripheral pulses, full and equal in all extremities, except as noted. No bruits appreciated. ABDOMEN: Soft, nondistended. Normal aorta. No bruit. Nontender. No masses. Liver, nontender, no hepatomegaly. Spleen, nontender, no splenomegaly. MUSCULOSKELETAL: No joint tenderness. No joint swelling. No erythema. NEUROLOGICAL: Normal gait, normal strength, normal tone. SKIN: Warm and dry. REVIEW OF SYSTEMS: The patient reports easy bruising but reports no swollen glands. The patient reports no fever, no night sweats, no significant weight gain, no significant weight loss. No significant exercise tolerance. The patient reports no dry eyes, no irritation, no vision change. Patient reports no difficulty hearing and no ear pain. Patient reports no frequent nose bleeds or nose and sinus problems. Patient reports on arm pain on exertion. No shortness of breath while lying down. No history of heart murmur. Patient reports no cough, no wheezing or coughing up blood. Patient reports no abdominal pain, no vomiting. Normal appetite. No diarrhea and not vomiting CONSULT REPORT [id number] SAMANTA OSEGUERA blood. No nausea and no constipation. Patient reports no incontinence. No difficulty urinating. No hematuria. No increased frequency. Patient reports no muscle aches. No weakness, no arthralgias, no back pain. No swelling of the extremities. Patient reports no abnormal mole, no jaundice, no rashes. Reports no loss of consciousness. No weakness and no numbness. No seizures, dizziness, or headaches. The patient reports no depression, no sleep disturbance, feeling safe in a relationship and no alcohol abuse. Patient reports on fatigue. Reports no runny nose or sinus pressure. No itching, no hives, and no frequent sneezing. OVERALL IMPRESSION: Anginal symptomatology in an unstable fashion. We will proceed with coronary angiography. Further care depends upon the findings of the angiography. TRANSINT:[id number] Voice Confirmation ID: [id number] DOCUMENT ID: [id number] RAYMOND STEIN MD at 1616 CC: [id number] DICTATION DATE: 02/06/18 1055 GRINDER SET UP OPERATOR THREAD TOOL: 02/06/18 1110 ADM IN [place] [address] [place] [address]
[~2018-02-05 21:11] MED LIST changes: +EFFEXOR; +MEDROL DOSE PACK4 MG PO; +XARELTO20 MG PO
[2018-02-05 21:14] VITALS: Ht 175.3 cm; Wt 100.0 kg
[2018-02-05 21:51] LABS: BASOPHILS 0.6 % (0-2); EOSINOPHILS 2.8 % (0-7); HEMATOCRIT 43.8 % (42.0-54.0); HEMOGLOBIN 15.8 g/dL (13.5-17.5); IMMATURE GRANULOCYTES 0.3 % (0-5); LYMPHOCYTES 27.9 % (15-50); MCH 31.3 pg (26.0-34.0); MCHC 36.1 g/dL (31.0-37.0); MCV 86.9 fL (80.0-100.0); MEAN PLATELET VOLUME 10.7 fL (7.4-10.4); NEUTROPHILS 58.4 % (40-80); RBC 5.04 10x6/uL (4.20-6.10); RDW 14.9 % (11.5-14.5); WBC 8.9 10x3/uL (4.8-10.8)
[2018-02-05 21:53] LABS: PLATELET COUNT 202 10x3/uL (130-400)
[2018-02-05 22:05] LABS: ALKALINE PHOSPHATASE 90 U/L (46-116); ALT (SGPT) 28 U/L (10-68); CALC OSMOLALITY 276 mosm/kg (275-300); CALCIUM 9.4 mg/dL (8.5-10.1); CARBON DIOXIDE 25.2 mmol/L (21.0-32.0); CHLORIDE - SERUM 102 mmol/L (98-107); CREATININE - SERUM 1.1 mg/dL (0.6-1.3); GLUCOSE 93 mg/dL (74-106); POTASSIUM - SERUM 3.4 mmol/L (3.5-5.1); PROTEIN - SERUM 7.5 g/dL (6.4-8.2); SODIUM 140 mmol/L (136-145); UREA NITROGEN 6 mg/dL (7-18); eGFR NON AFRICAN AMERICAN 74 mL/min (90-120)
[2018-02-05 22:17] LABS: CKMB 2.1 U/L (0.0-3.6); CREATINE KINASE 88 UL (21-232)
[2018-02-05 22:28] LABS: TROPONIN-I < 0.017 ng/mL (0.000-0.060)
[2018-02-05 22:30] VITALS: BP 163/84
[2018-02-05 23:30] VITALS: BP 146/83
[2018-02-06] VITALS (7 sets, daily range): BP systolic 128–143; BP diastolic 78–91
[2018-02-06 03:39] LABS: BASOPHILS 0.8 % (0-2); EOSINOPHILS 3.3 % (0-7); HEMATOCRIT 44.1 % (42.0-54.0); HEMOGLOBIN 15.7 g/dL (13.5-17.5); IMMATURE GRANULOCYTES 0.5 % (0-5); LYMPHOCYTES 28.9 % (15-50); MCH 31.3 pg (26.0-34.0); MCHC 35.6 g/dL (31.0-37.0); MCV 87.8 fL (80.0-100.0); MEAN PLATELET VOLUME 10.3 fL (7.4-10.4); MONOCYTES 10.2 % (2-11); NEUTROPHILS 56.3 % (40-80); PLATELET COUNT 191 10x3/uL (130-400); RBC 5.02 10x6/uL (4.20-6.10); RDW 15.1 % (11.5-14.5); WBC 9.2 10x3/uL (4.8-10.8)
[2018-02-06 04:00] LABS: CALCIUM 9.3 mg/dL (8.5-10.1); CARBON DIOXIDE 27.2 mmol/L (21.0-32.0); CHLORIDE - SERUM 103 mmol/L (98-107); POTASSIUM - SERUM 3.3 mmol/L (3.5-5.1); SODIUM 140 mmol/L (136-145); UREA NITROGEN 7 mg/dL (7-18); eGFR NON AFRICAN AMERICAN 83 mL/min (90-120)
[2018-02-06 04:05] LABS: CALC OSMOLALITY 278 mosm/kg (275-300); GLUCOSE 141 mg/dL (74-106); TROPONIN-I < 0.017 ng/mL (0.000-0.060)
== END 2018-02-06 17:32 | disposition home or self-care (01) ==
LOC: OBSVTIME → D.ER 21:11 → D.SDCHOLD 23:57 → D.ER 23:57 → OBSVTIME 23:57 → D.EDHOLD 02-06 00:25 → OBSVTIME 02-06 00:25 → D.CLR 02-06 13:22
PROVIDERS: Family Medicine
DX: I25.110 Atherosclerotic heart disease of native coronary artery with unstable angina pectoris (principal); Z95.5 Presence of coronary angioplasty implant and graft; E87.6 Hypokalemia; Z86.73 Personal history of transient ischemic attack (TIA), and cerebral infarction without residual deficits; I10 Essential (primary) hypertension; E78.5 Hyperlipidemia, unspecified; Z72.0 Tobacco use; J44.9 Chronic obstructive pulmonary disease, unspecified; K21.9 Gastro-esophageal reflux disease without esophagitis; F31.9 Bipolar disorder, unspecified; F41.9 Anxiety disorder, unspecified
CPT/HCPCS: 93458; 92978; C9600

== ENCOUNTER 2018-03-06 19:44 | Emergency (ER) | payer MEDICARE ==
[~2018-03-06] VITALS: Ht 175.3 cm; Wt 100.0 kg
[2018-03-06 19:46] VITALS: Ht 175.3 cm; Wt 100.0 kg
[2018-03-06] MEDS ORDERED: ANORO ELLIPTA1 EACH INH (19:49)
[2018-03-06] MEDS ORDERED: PLAVIX75 MG PO (19:49)
[2018-03-06] MEDS ORDERED: OXYCODONE HCL10 MG PO (19:50)
[2018-03-06 21:29] LABS: BASOPHILS 0.7 % (0-2); HEMATOCRIT 44.7 % (42.0-54.0); IMMATURE GRANULOCYTES 0.5 % (0-5); LYMPHOCYTES 29.9 % (15-50); MCH 31.8 pg (26.0-34.0); MCHC 35.8 g/dL (31.0-37.0); MCV 88.9 fL (80.0-100.0); MEAN PLATELET VOLUME 10.3 fL (7.4-10.4); MONOCYTES 10.6 % (2-11); NEUTROPHILS 57.3 % (40-80); PLATELET COUNT 239 10x3/uL (130-400); RBC 5.03 10x6/uL (4.20-6.10); RDW 15.3 % (11.5-14.5); WBC 9.8 10x3/uL (4.8-10.8)
[2018-03-06 21:35] LABS: APTT 22.9 SECONDS (22.8-39.4); INR 0.99 (0.85-1.17); PROTIME 12.7 SECONDS (11.6-15.0)
[2018-03-06 21:45] LABS: ALBUMIN 4.4 g/dL (3.4-5.0); ALKALINE PHOSPHATASE 95 U/L (46-116); ALT (SGPT) 16 U/L (10-68); BILIRUBIN - TOTAL 0.36 mg/dL (0.2-1.3); CALC OSMOLALITY 277 mosm/kg (275-300); CALCIUM 9.4 mg/dL (8.5-10.1); CARBON DIOXIDE 23.3 mmol/L (21.0-32.0); CHLORIDE - SERUM 102 mmol/L (98-107); GLUCOSE 95 mg/dL (74-106); POTASSIUM - SERUM 3.6 mmol/L (3.5-5.1); PROTEIN - SERUM 8.2 g/dL (6.4-8.2); SODIUM 140 mmol/L (136-145); UREA NITROGEN 11 mg/dL (7-18); eGFR NON AFRICAN AMERICAN 83 mL/min (90-120)
[2018-03-06 22:04] LABS: CKMB 1.8 U/L (0.0-3.6); CREATINE KINASE 81 UL (21-232); PRO BNP 80 pg/mL (0-125)
[2018-03-06 22:06] LABS: TROPONIN-I < 0.017 ng/mL (0.000-0.060)
[2018-03-06 23:48] LABS: APPEARANCE CLEAR (CLEAR); BILIRUBIN NEGATIVE (NEGATIVE); COLOR YELLOW (YELLOW); GLUCOSE NEGATIVE (NEGATIVE); KETONE NEGATIVE (NEGATIVE); NITRITE NEGATIVE (NEGATIVE); PROTEIN NEGATIVE (NEGATIVE); UROBILINOGEN NORMAL (NORMAL)
[2018-03-07 02:55] VITALS: BP 168/79
== END 2018-03-07 02:50 | disposition home or self-care (01) ==
LOC: D.ER 19:44
PROVIDERS: Family Medicine
DX: R07.9 Chest pain, unspecified (principal); J44.9 Chronic obstructive pulmonary disease, unspecified; Z86.73 Personal history of transient ischemic attack (TIA), and cerebral infarction without residual deficits; I11.0 Hypertensive heart disease with heart failure; I50.9 Heart failure, unspecified; K21.9 Gastro-esophageal reflux disease without esophagitis; Z85.828 Personal history of other malignant neoplasm of skin; F17.200 Nicotine dependence, unspecified, uncomplicated

== ENCOUNTER 2018-05-12 19:46 | Observation (INO) | payer MEDICARE ==
[~2018-05-12] VITALS: Ht 175.3 cm; Wt 102.1 kg
--- NOTE | ~2018-05-12 | MORECARE ---
CASE MANAGEMENT DISCHARGE SUMMARY PATIENT: SAMANTA OSEGUERA UNIT: [id number] ADM DATE: 05/12/18 AGE: 53 : 61 SEX: M ROOM/BED: D.2116 AUTHOR: ADAN MCMAHAN PHYSICIAN: REFERRING PHYSICIAN: MAURILIO FONTENOT MD DATE OF SERVICE: 05/14/18 Discharge Plan Patient Name: SAMANTA [facility]SEGUERA [facility] 1965 Planned Disposition: Home Anticipated Discharge Date: 05/13/18 Discharge Date: 05/13/2018 Expected LOS: 1 Initial Reviewer: [email or web address] Initial Review Date: 05/14/2018 Generated: 05/14/18 11:18 am Coverage Notice Reviewer: [email or web address] Bobby Ramirez Notice Issued Date-Time: 05/13/2018 10:40 Notice Type: Medicare Outpatient Observation Notice Notice Delivered To: Patient Relationship to 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 SIGNATURE NOT OBTAINED AT THIS TIME, BUT LISA LEFT AT BEDSIDE. INSTRUCTED HIM AND HIS BEDSIDE NURSE, ROGER, THAT THEY COULD CALL IF HAVE QUESTIONS. Patient Name: SAMANTA OSEGUERA Page [phone] at 1018 All edits/amendments must be made on the electronic document DICTATION DATE: 05/14/18 1018 SAS PROGRAMMER ANALYST: PAUL 05/14/18 1018 RPT#: [id number] DC DATE:05/13/18 STATUS: DIS IN [facility] [address] [place] [address] END OF REPORT
--- NOTE | ~2018-05-12 | HEMODYNAMI ---
PATIENT:SAMANTA OSEGUERA MEDICAL RECORD: [id number] : 61 [id number] ADMISSION DATE: 05/12/18 Generatedon:05/13/201811:56 Patient name: SAMANTA OSEGUERA Patient #: [id number] SSN: [id number] : 1965 Date of study: 05/13/2018 Page: Of Hemodynamic Procedure Report Patient Data Patient Demographics Procedure consent was obtained First Name: SAMANTA Gender: Male Last Name: OUMAR : 1965 [facility] Initial: KRISTEN Age: 53 year(s) Patient #: [id number] Race: SSN: [id number] Additional ID: [id number] Contact details Address: [address] [place] [address] ROAD State: [place] City: [facility] Zip code: [address] Past Medical History Allergies Allergen Reaction Date Comments Reported Other allergy 06/17/2014 ASA, Benzocaine, Lamictal, Neurotin, NSAIDS, Toradol, Trazadone, Ultram, Hydrocodone. Admission Admission Data Admission Date: 05/12/2018 Admission Time: 22:21 Admit Source: [facility] Results Lab Result Date: 05/13/2018 Lab Result Time: 0:00 Biochemistry Name Units Result Min Max BUN mg/dl 12 --(-*--)-- 7 18 Creatinine mg/dl 1 --(--*-)-- 0.6 1.3 CBC Name Units Result Min Max Hemoglobin g/dl 15.1 --(-*--)-- 13.5 17.5 Procedure Procedure Types Cath Procedure Diagnostic Procedure LHC LHC w/Coronaries Meek Insertion PCI Procedure Coronary Atherectomy Atherectomy w/PTCA Coronary Initial Procedure Description Procedure Date Procedure Date: 05/13/2018 Procedure Start Time: 11:20 Procedure End Time: 11:56 Procedure Staff Name Function Clint العراقي MD Performing Physician Leroy Suit RT Monitor Gabriel Lozano RT Scrub Mai Flores RN Nurse Coery Benítez MD Additional personnel Procedure Data Cath Procedure Fluoroscopy Diagnostic fluoroscopy Total fluoroscopy Time: 4 time: 4 min min Diagnostic fluoroscopy Total fluoroscopy dose: 760 dose: 760 mGy mGy Contrast Material Contrast Material Type Amount (ml) Isovue 300 79 Entry Location Entry Primary Successful Side Size Upsize Upsize Entry Closure Succes sful Closure Location (Fr) 1 (Fr) 2 (Fr) Remarks Device Remarks Femoral Right 5 Fr 6 Fr artery Short Diagnostic catheters Device Type Used For End Catheter Placement MULTIPACK Pigtail 5 Fr LV Angiography catheter MULTIPACK JL 4.0 5Fr Left Coronary catheter Angiography MULTIPACK 3DRC 5Fr Right Coronary catheter Angiography Procedure Complications No complications Procedure Medications Medication Administration Route Dosage 0.9% NaCl I.V. 100 ml/hr Oxygen etCO2 Nasal cannula 2 l/min Lidocaine 2% added to field 20 Heparin Flush Bag added to field 2 bags (1000units/500ml NS) Refer to Anesthesia Notes for Sedation Medications Heparin Bolus I.V. 4000 units Plavix P.O. 75 mg Hemodynamics Rest Pre Cath Intra NCS Post Cath Vital Signs Time Heart Resp SPO2 etCO2 NIBP (mmHg) Rhythm Pain Sedation Rate (ipm) (%) (mmHg) Status Level (bpm) 11:01:02 55 18 96 35 145/81(115) NSR 0 (11) 10(A) , No pain 11:05:18 63 13 99 32.3 149/85(121) NSR 0 (11) 10(A) , No pain 11:09:38 62 20 100 33.9 149/83(114) NSR 0 (11) 10(A) , No pain 11:13:56 61 20 100 34.5 141/82(105) NSR 0 (11) 10(A) , No pain 11:18:14 67 20 100 41.3 150/82(114) NSR 0 (11) 5(A) , No pain 11:22:26 68 14 96 38 117/66(92) NSR 0 (11) 5(A) , No pain 11:26:38 73 12 96 35.3 116/67(92) NSR 0 (11) 5(A) , No pain 11:30:52 70 11 97 37.6 115/65(94) NSR 0 (11) 5(A) , No pain 11:35:06 72 14 94 24 104/60(90) NSR 0 (11) 5(A) , No pain 11:39:14 74 13 96 38.3 105/66(80) NSR 0 (11) 5(A) , No pain 11:43:22 72 13 96 48.1 122/68(102) NSR 0 (11) 10(A) , No pain 11:47:33 71 13 94 0 128/73(96) NSR 0 (11) 10(A) , No pain 11:51:45 70 18 98 0 126/80(111) NSR 0 (11) 10(A) , No pain Medications Time Medication Route Dose Verified Delivered Reason Notes Effectiveness by by 11:00:04 0.9% NaCl I.V. 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 4000 Clint Oneill for verif ied units Malcom Flores anticoagulation with Dr. JOVANNY العراقي 11:46:19 Plavix P.O. 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 Start room use. 10:35:02 Time tracking: Regular hours (M-F 7:00 - 5:00) 10:35:06 Plan of Care:Hemodynamics will remain stable., Cardiac rhythm will remain stable., Comfort level will be maintained., Respiratory function will remain adequate., Patient/ family verbilizes understanding of procedure., Procedure tolerated without complication., Recovers from procedure without complications.. 10:43:10 Patient received from Med II to CCL 1 Alert and oriented. Tansferred to table in Supine position. 10:43:12 Warm blankets applied, and bianka hugger turned on for patient comfort. 10:43:13 Correct patient and procedure confirmed by team. 10:43:13 ECG and BP/O2 sat monitors applied to patient. 10:43:14 Pre-procedure instructions explained to patient. 10:43:14 Pre-op teaching completed and patient verbalized understanding. 10:43:16 Family in waiting room. 10:43:20 H&P Date Dictated: 05/12/2018 Within 30 days and on chart.. 10:43:24 Patient NPO since Midnight. 10:59:53 Vital chart was started 11:00:04 0.9% NaCl 100 ml/hr I.V. was administered by Mai Flores RN; used for procedure; 11:00:10 Oxygen 2 l/min etCO2 Nasal cannula was administered by Mai Flores RN; used for procedure; 11:00:16 Lidocaine 2% 20ml vial added to field was administered by Clint العراقي MD; for local anesthetic; 11:00:20 Heparin Flush Bag (1000units/500ml NS) 2 bags added to field was administered by Clint العراقي MD; used for procedure; 11:00:25 Refer to Anesthesia Notes for Sedation Medications was administered by Clint العراقي MD; ; 11:02:49 Is the patient allergic to Iodine/contrast media? No. 11:03:03 Is patient on blood thinner?Yes 11:03:06 ACC The patient was administered the following blood thiners within the last 24 hours: ACCPlavix 11:07:09 Patient diabetic? No. 11:07:10 ----Pre-sedation anethsthesia assessment.---- 11:07:13 Previous problem with sedation/anesthesia? No ? 11:07:15 Snore? Yes 11:07:16 Sleep apnea? Yes 11:07:18 Deviated septum? No 11:07:19 Opens mouth fully? Yes 11:07:21 Sticks out tongue? Yes 11:07:26 Airway obstruction? Yes COPD 11:07:29 Dentures? No ? 11:07:32 Pre procedure: right dorsailis pedis pulse 2+ Normal; easily identifiable; not easily obliterated 11:07:39 Patient pain scale 0/10 ?. 11:07:43 IV patent on arrival in right antecubital with 0.9% NaCl at 10ml/hr. 11:10:02 Lab Result : BUN 12 mg/dl 11:10:02 Lab Result : Hemoglobin 15.1 g/dl 11:10:02 Lab Result : Creatinine 1 mg/dl 11:10:05 Lab results completed and on chart. 11:10:08 Right groin area was prepped with chlora-prep and draped in sterile fashion 11:10:10 Alarms reviewed by R. N. 11:10:10 Sharps counted by scrub and verified by R.N. 11:10:17 Zero performed for pressure channel P1 11:13:21 Corey Benítez MD present and monitoring patient for TIVA. 11:13:25 Use device set Femoral Dx 11:13:26 ACIST Syringe (10370) opened to sterile field. 11:13:26 Bag Decanter (2002S) opened to sterile field. 11:13:27 Medline Cath Pack ([id number]) opened to sterile field. 11:13:28 DIAGNOSTIC WIRE .035 260cm J wire (307354) opened to sterile field. 11:13:29 ACIST Hand Control (65185) opened to sterile field. 11:13:30 ACIST Manifold (38439) opened to sterile field. 11:13:30 DIAGNOSTIC Multipack 5Fr catheter set (CV4918) opened to sterile field. 11:13:31 Tegaderm 4 x 4 (1626W) opened to sterile field. 11:13:35 SHEATH 5FR Big[place] (GBO195) opened to sterile field. 11:13:42 --------ALL STOP TIME OUT------ 11:13:42 Final Timeout: patient, procedure, and site verified with staff and physician. All members of the team are in agreement. 11:13:44 Right groin site verified by team. 11:13:48 Physical assessment completed. ASA score P 2 - A patient with mild systemic disease as per Clint العراقي MD. 11:13:51 Sedation plan: IV Moderate Sedation Medication:Versed, Fentanyl 11:18:09 Procedure started. 11:18:09 Full Disclosure recording started 11:20:38 Local anesthetic to right femoral artery with Lidocaine 2% by Clint العراقي MD.INITIAL ACCESS ONLY 11:20:47 A 5 Fr sheath was inserted into the Right Femoral artery 11:20:55 A MULTIPACK Pigtail 5 Fr catheter was advanced over the wire and used for LV Angiography. 11:20:59 LV angiography performed. 11:21:04 EF : 55 % 11:21:09 Catheter removed. 11:21:15 A MULTIPACK JL 4.0 5Fr catheter was advanced over the wire and used for Left Coronary Angiography. 11:21:19 LCA angiography performed. 11:22:05 Catheter removed. 11:22:11 A MULTIPACK 3DRC 5Fr catheter was advanced over the wire and used for Right Coronary Angiography. 11:27:58 RCA angiography performed. 11::59 Catheter removed. 11:28:09 Sheath upsized to a 6 Fr Short. 11:32:21 Heparin Bolus 4000 units I.V. was administered by Mai Flores RN; for anticoagulation; verified with Dr. العراقي 11:32:43 GUIDE 6FR 3DRC SH catheter ([id number]) opened to sterile field. 11:32:44 SHEATH 6FR [place] (DZT912) opened to sterile field. 11:32:45 LASER ELCA 1.4 Rx atherectomy catheter (605805) opened to sterile field. 11:32:46 CHOICE PT Extra Support 182cm wire ([id number]) opened to sterile field. 11:32:47 INFLATOR Merit BasixCompak (GI4800) opened to sterile field. 11:32:48 SHEATH 6FR Big[place] (WGX123) opened to sterile field. 11:33:01 6 Fr 3DRC SH guide catheter was inserted over the wire 11:33:05 CPTES wire advanced. 11:33:18 LASER ATHERECTOMY 11:35:19 CHOICE PT Extra Support 182cm wire ([id number]) opened to sterile field. 11:35:41 1ST WIRE DAMAGED 11:35:47 Wire removed. 11:35:58 CPTES wire advanced. 11:36:20 Laser pass to pRCA with Fluence of 60 and Rate of 40. 11:39:38 Laser pass to pRCA with Fluence of 60 and Rate of 40. 11:40:04 Laser catheter removed. 11:40:34 Inflate balloon Inflation number: 1 A EUPHORA 4.0 x 15 Balloon ([id number]) was prepped and advanced across the Prox RCA, then inflated to 17 BJORN for 0:08 (min:sec). 11:41:24 Inflation number: 2 The EUPHORA 4.0 x 15 Balloon ([id number]) was reinflated across the Prox RCA, to 21 BJORN for 0:09 (min:sec). 11:42:05 Procedure type changed to Cath procedure, Diagnostic procedure, LHC, LHC w/Coronaries, Meek Insertion, PCI procedure, Coronary Atherectomy, Atherectomy w/PTCA Coronary Initial 11:43:11 Balloon removed over the wire. 11:43:12 Wire removed. 11:43:14 Guide catheter removed. 11:44:17 Procedure ended.(Physican Out) 11:44:35 Fluoroscopy time 04.00 minutes. 11:44:40 Fluoroscopy dose: 760 mGy 11:44:40 Flurop Dose total: 760 11:44:49 Contrast amount:Isovue 300 79ml. 11:44:51 Sharps counted by scrub and verified by R.N. 11:44:52 Insertion/operative site no bleeding no hematoma. 11:44:55 Post-op/insertion site Right Femoral artery dressed using a 4 x 4 and Tegaderm. 11:44:59 Post right femoral artery:stable 11:45:01 Post Procedure Pulses reassessed and unchanged 11:45:05 Post procedure: right dorsailis pedis pulse 2+ Normal; easily identifiable; not easily obliterated. 11:45:08 Post procedure rhythm: sinus rhythm 11:45:10 Post procedure instruction explained to patient.Patient verbalizes understanding. 11:45:11 Procedure and supply charges have been captured, reviewed, submitted and are correct. 11:45:39 EXOSEAL 6Fr (EX600) opened to sterile field. 11:46:19 Plavix 75 mg P.O. was administered by Mai Flores RN; ; 11:52:23 16fr standard meek inserted no resistance clear yellow urine obtained. 11:52:26 Meek intact 11:52:47 MEEK 16FR w/Drainage Bag ([id number]) opened to sterile field. 11:53:04 Procedure Complication : No complications 11:54:47 Vital chart was stopped 11:54:48 See physician's report for complete and final results. 11:54:55 Report given to PCU. 11:54:59 Patient transfered to PCU with Bed. 11:55:59 Procedure ended. 11:55:59 Full Disclosure recording stopped 11:56:05 End room use (Document Last) Intervention Summary Intervention Notes Time ActionType Lesion and Equipment Action# Pressure Duration Attributes Used 11:40:34 Inflate Prox RCA EUPHORA 1 17 00:08 balloon 4.0 x 15 Balloon ([id number]) 11:41:24 Reinflate Prox RCA EUPHORA 2 21 00:09 balloon 4.0 x 15 Balloon ([id number]) Device Usage Item Name Manufacture Quantity Catalog Number Hospital Part Current Minim al Lot# / Charge Number Stock Stock Serial# Code ACIST Acist 1 23241 717390 702534 501932 20 Syringe Medical (70186) Systems Inc Bag Microtek 1 2001S 035440 62646 558724 5 Decanter Medical Inc. () Medline Medline 1 [id number] 831099 45799 565661 5 Cath Pack ([id number]) DIAGNOSTIC [facility] 1 478799 014367 597007 679607 30 WIRE .035 260cm J wire (886728) ACIST Hand Acist 1 78663 450218 254033 035879 5 Control Medical (60860) Systems Inc ACIST Acist 1 72871 950578 861643 235843 5 Manifold Medical (21931) Systems Inc DIAGNOSTIC Cardinal 1 PN4206 605255 90404 146238 30 Multipack Health 5Fr catheter set (HC3201) Tegaderm 4 3M 1 1626W 685420 435073 126815 5 x 4 (1626W) SHEATH 5FR Terumo 1 QJY386 931362 154485 488020 5 Bigfork (ASI167) MULTIPACK Cardinal 1 769583 5 Pigtail 5 Health Fr catheter MULTIPACK Cardinal 1 215811 5 JL 4.0 5Fr Health catheter MULTIPACK Cardinal 1 466738 5 3DRC 5Fr Health catheter GUIDE 6FR Medtronic 1 [id number] 300365 460026 288938 1 3DRC catheter ([id number]) SHEATH 6FR Terumo 2 BTE470 361637 532195 845326 40 Bigfork (OPJ721) LASER ELCA Juliet 1 114-009 712869 922046 181270 5 1.4 Rx Healthcare atherectomy (335812) catheter (648340) CHOICE PT [place] 2 [id number] 517432 858619 910370 5 Extra Scientific Support 182cm wire (3471943E2) INFLATOR Merit 1 RF7366 901819 771901 295171 15 [facility] Medical BasixCompak (KN7330) EUPHORA 4.0 Medtronic 1 [id number] 064058 014506 895389 5 [id number] x 15 Balloon ([id number]) EXOSEAL 6Fr Cardinal 1 EX600 923636 706751 931951 10 (EX600) Health MEEK 16FR Bard 1 106623Z 981299 377622 675460 5 w/Drainage Bag (516876I) Signature Audit [place] Stage Time Signature Unsigned Intra-Procedure 05/13/2018 Leroy Hewitt RT(R) 11:56:34 AM Signatures Monitor : Leroy Hewitt RT Signature : Date : Time : [place] [address] [facility] [place] [address]
--- NOTE | ~2018-05-12 | OP ---
PATIENT NAME: SAMANTA OSEGUERA MEDICAL RECORD: [id number] :61 LOCATION:D.M2 D.2116 ADMISSION DATE:05/12/18 SURGEON: RAYMOND STEIN MD DATE OF OPERATION: 05/13/2018 PROCEDURES: 1. Laser atherectomy, RCA. 2. PTCA, RCA. 3. Left heart catheterization. 4. Selective coronary angiography. 5. Left ventriculogram. INDICATIONS: Unstable angina and coronary artery disease. DESCRIPTION OF PROCEDURE: After informed consent was obtained with detailed description of risks and benefits as well as alternative therapies, the patient elected to proceed with angiogram and angioplasty. The right femoral area was prepped and draped in normal sterile fashion. Right femoral artery was cannulated via modified Seldinger technique with placement of 6-Romansh sheath. All catheters were exchanged through this sheath. FINDINGS: Left ventriculogram performed in standard 30-degree CLEMONS view reveals good cardiac wall motion throughout all segments. Overall ejection fraction estimated at 55%. SELECTIVE CORONARY ANGIOGRAPHY: 1. Left main has no significant angiographic disease. 2. Left anterior descending has previously placed stents. These are widely patent with no significant restenosis. No disease else pierce throughout the LAD or its branches. 3. Left circumflex is small and nondominant with no significant disease. 4. Right coronary has previously placed stents. There is greater than 70% in-stent restenosis in the proximal aspect. LASER ATHERECTOMY AND PTCA OF THE RCA: The proximal RCA was addressed with a 1.4 laser catheter. OVERALL IMPRESSION: Successful laser atherectomy and PTCA of the RCA, going from greater than 70% initial stenosis to 0% residual. TRANSINT:[id number] Voice Confirmation ID: [id number] DOCUMENT ID: [id number] RAYMOND STEIN MD at 1457 CC: [id number] DICTATION DATE: 05/13/18 1147 SURFACE SUPPLY BREATHING APPARATUS: 05/13/18 1223 DIS IN 05/13/18 [place] [id number] [place] [address]
[~2018-05-12 19:46] MED LIST changes: +ANORO ELLIPTA1 EACH INH; +OXYCODONE HCL10 MG PO
[2018-05-12 20:15] LABS: BASOPHILS 0.5 % (0-2); EOSINOPHILS 4.1 % (0-7); HEMATOCRIT 44.6 % (42.0-54.0); HEMOGLOBIN 15.4 g/dL (13.5-17.5); IMMATURE GRANULOCYTES 0.4 % (0-5); LYMPHOCYTES 36.3 % (15-50); MCH 31.2 pg (26.0-34.0); MCHC 34.5 g/dL (31.0-37.0); MCV 90.3 fL (80.0-100.0); MEAN PLATELET VOLUME 10.7 fL (7.4-10.4); MONOCYTES 7.9 % (2-11); NEUTROPHILS 50.8 % (40-80); PLATELET COUNT 244 10x3/uL (130-400); RBC 4.94 10x6/uL (4.20-6.10); RDW 13.6 % (11.5-14.5); WBC 9.4 10x3/uL (4.8-10.8)
[2018-05-12 20:31] LABS: APTT 26.5 SECONDS (22.8-39.4); INR 1.01 (0.85-1.17); PROTIME 12.8 SECONDS (11.6-15.0)
[2018-05-12 20:32] LABS: D-DIMER-QUANTITATIVE 0.34 ug/mLFEU (0.20-0.54)
[2018-05-12 20:35] LABS: ALBUMIN 3.9 g/dL (3.4-5.0); ALKALINE PHOSPHATASE 93 U/L (46-116); ALT (SGPT) 22 U/L (10-68); BILIRUBIN - TOTAL 0.25 mg/dL (0.2-1.3); CALC OSMOLALITY 275 mosm/kg (275-300); CARBON DIOXIDE 26.1 mmol/L (21.0-32.0); CHLORIDE - SERUM 101 mmol/L (98-107); CREATININE - SERUM 1.3 mg/dL (0.6-1.3); GLUCOSE 100 mg/dL (74-106); POTASSIUM - SERUM 3.6 mmol/L (3.5-5.1); PROTEIN - SERUM 7.7 g/dL (6.4-8.2); SODIUM 138 mmol/L (136-145); UREA NITROGEN 13 mg/dL (7-18); eGFR NON AFRICAN AMERICAN 61 mL/min (90-120)
[2018-05-12 20:46] LABS: CKMB 6.6 U/L (0.0-3.6); CREATINE KINASE 533 UL (21-232); MAGNESIUM - SERUM 1.9 mg/dL (1.8-2.4); TROPONIN-I < 0.017 ng/mL (0.000-0.060)
[2018-05-12 21:19] VITALS: BP 117/66
[2018-05-12 21:26] LABS: APPEARANCE CLEAR (CLEAR); BILIRUBIN NEGATIVE (NEGATIVE); COLOR YELLOW (YELLOW); GLUCOSE NEGATIVE (NEGATIVE); KETONE NEGATIVE (NEGATIVE); NITRITE NEGATIVE (NEGATIVE); PROTEIN NEGATIVE (NEGATIVE); UROBILINOGEN NORMAL (NORMAL)
[2018-05-12 21:38] VITALS: BP 122/67
[2018-05-12 21:49] VITALS: BP 122/85
[2018-05-12 23:26] LABS: CKMB 5.5 U/L (0.0-3.6); CREATINE KINASE 428 UL (21-232); TROPONIN-I < 0.017 ng/mL (0.000-0.060)
[2018-05-12 23:27] VITALS: BP 128/73; BMI 33.3
[2018-05-13] VITALS: BP 128/73
[2018-05-13 04:00] VITALS: BP 105/59
[2018-05-13 05:18] LABS: CKMB 4.9 U/L (0.0-3.6); CREATINE KINASE 358 UL (21-232); TROPONIN-I < 0.017 ng/mL (0.000-0.060)
[2018-05-13 08:19] VITALS: BP 111/53
[2018-05-13 08:31] LABS: BASOPHILS 0.8 % (0-2); HEMOGLOBIN 15.1 g/dL (13.5-17.5); IMMATURE GRANULOCYTES 0.3 % (0-5); LYMPHOCYTES 38.1 % (15-50); MCH 31.1 pg (26.0-34.0); MCHC 34.3 g/dL (31.0-37.0); MCV 90.7 fL (80.0-100.0); MEAN PLATELET VOLUME 11.2 fL (7.4-10.4); NEUTROPHILS 45.8 % (40-80); PLATELET COUNT 218 10x3/uL (130-400); RBC 4.85 10x6/uL (4.20-6.10); RDW 13.6 % (11.5-14.5); WBC 7.2 10x3/uL (4.8-10.8)
[2018-05-13 08:37] LABS: CALC OSMOLALITY 282 mosm/kg (275-300); CALCIUM 8.9 mg/dL (8.5-10.1); CARBON DIOXIDE 26.4 mmol/L (21.0-32.0); CHLORIDE - SERUM 105 mmol/L (98-107); GLUCOSE 90 mg/dL (74-106); POTASSIUM - SERUM 3.8 mmol/L (3.5-5.1); SODIUM 142 mmol/L (136-145); UREA NITROGEN 12 mg/dL (7-18); eGFR NON AFRICAN AMERICAN 82 mL/min (90-120)
[2018-05-13 11:33] LABS: CKMB 4.7 U/L (0.0-3.6); CREATINE KINASE 304 UL (21-232); TROPONIN-I < 0.017 ng/mL (0.000-0.060)
[2018-05-13 12:25] VITALS: BP 133/83
[2018-05-13 12:50] VITALS: Ht 175.3 cm; Wt 102.1 kg
[2018-05-13 16:05] VITALS: BP 135/88
== END 2018-05-13 18:22 | disposition home or self-care (01) ==
LOC: D.ER 19:46 → D.M2 22:21 → OBSVTIME 22:21 → D.M2 05-13 18:22
PROVIDERS: Family Medicine; Internal Medicine Cardiovascular Disease
DX: I25.110 Atherosclerotic heart disease of native coronary artery with unstable angina pectoris (principal); I11.0 Hypertensive heart disease with heart failure; I50.9 Heart failure, unspecified; Z86.73 Personal history of transient ischemic attack (TIA), and cerebral infarction without residual deficits; G62.9 Polyneuropathy, unspecified; J44.9 Chronic obstructive pulmonary disease, unspecified; F31.9 Bipolar disorder, unspecified; F41.9 Anxiety disorder, unspecified; F17.213 Nicotine dependence, cigarettes, with withdrawal

== ENCOUNTER 2018-05-25 20:54 | Observation (INO) | payer MEDICARE ==
[~2018-05-25] VITALS: Ht 175.3 cm; Wt 99.8 kg
[2018-05-25 21:28] VITALS: BP 175/88
[2018-05-25 21:29] LABS: BASOPHILS 0.7 % (0-2); EOSINOPHILS 4.3 % (0-7); HEMOGLOBIN 16.4 g/dL (13.5-17.5); IMMATURE GRANULOCYTES 0.3 % (0-5); LYMPHOCYTES 29.2 % (15-50); MCH 31.4 pg (26.0-34.0); MCHC 35.7 g/dL (31.0-37.0); MCV 88.1 fL (80.0-100.0); MEAN PLATELET VOLUME 10.2 fL (7.4-10.4); MONOCYTES 10.1 % (2-11); NEUTROPHILS 55.4 % (40-80); PLATELET COUNT 218 10x3/uL (130-400); RBC 5.22 10x6/uL (4.20-6.10); RDW 13.6 % (11.5-14.5)
[2018-05-25 21:37] LABS: APTT 25.1 SECONDS (22.8-39.4); INR 0.91 (0.85-1.17); PROTIME 11.8 SECONDS (11.6-15.0)
[2018-05-25 21:44] LABS: ALBUMIN 4.1 g/dL (3.4-5.0); ALKALINE PHOSPHATASE 104 U/L (46-116); ALT (SGPT) 27 U/L (10-68); CALC OSMOLALITY 278 mosm/kg (275-300); CALCIUM 9.2 mg/dL (8.5-10.1); CARBON DIOXIDE 28.6 mmol/L (21.0-32.0); CHLORIDE - SERUM 100 mmol/L (98-107); CREATININE - SERUM 1.3 mg/dL (0.6-1.3); GLUCOSE 108 mg/dL (74-106); POTASSIUM - SERUM 3.5 mmol/L (3.5-5.1); SODIUM 140 mmol/L (136-145); UREA NITROGEN 10 mg/dL (7-18); eGFR NON AFRICAN AMERICAN 61 mL/min (90-120)
[2018-05-25 22:00] LABS: CKMB 2.4 U/L (0.0-3.6); CREATINE KINASE 97 UL (21-232); MAGNESIUM - SERUM 2.2 mg/dL (1.8-2.4); TROPONIN-I < 0.017 ng/mL (0.000-0.060)
[2018-05-25 22:30] VITALS: BP 174/96
[2018-05-25 23:30] VITALS: BP 176/83
[2018-05-26] VITALS: BP 151/84
[2018-05-26 04:00] VITALS: BP 115/61
[2018-05-26 04:57] LABS: BASOPHILS 0.6 % (0-2); EOSINOPHILS 2.8 % (0-7); HEMATOCRIT 42.4 % (42.0-54.0); HEMOGLOBIN 14.7 g/dL (13.5-17.5); IMMATURE GRANULOCYTES 0.4 % (0-5); LYMPHOCYTES 24.4 % (15-50); MCH 30.8 pg (26.0-34.0); MCHC 34.7 g/dL (31.0-37.0); MCV 88.9 fL (80.0-100.0); MEAN PLATELET VOLUME 10.6 fL (7.4-10.4); MONOCYTES 8.9 % (2-11); NEUTROPHILS 62.9 % (40-80); PLATELET COUNT 205 10x3/uL (130-400); RBC 4.77 10x6/uL (4.20-6.10); RDW 13.6 % (11.5-14.5); WBC 7.9 10x3/uL (4.8-10.8)
[2018-05-26 05:19] LABS: CALC OSMOLALITY 283 mosm/kg (275-300); CALCIUM 8.5 mg/dL (8.5-10.1); CARBON DIOXIDE 27.4 mmol/L (21.0-32.0); CHLORIDE - SERUM 103 mmol/L (98-107); CREATININE - SERUM 1.2 mg/dL (0.6-1.3); POTASSIUM - SERUM 3.1 mmol/L (3.5-5.1); SODIUM 141 mmol/L (136-145); TROPONIN-I < 0.017 ng/mL (0.000-0.060); UREA NITROGEN 10 mg/dL (7-18); eGFR NON AFRICAN AMERICAN 67 mL/min (90-120)
[2018-05-26 05:25] LABS: GLUCOSE 163 mg/dL (74-106)
[2018-05-26 09:34] VITALS: BP 120/72
[2018-05-26 12:24] VITALS: Ht 175.3 cm; Wt 99.8 kg
[2018-05-26 13:11] VITALS: BP 148/84
[2018-05-26] MEDS ORDERED: ZPAK PO (16:18)
--- NOTE | 2018-05-27 09:29 | MORECARE ---
CASE MANAGEMENT DISCHARGE SUMMARY PATIENT: SAMANTA OSEGUERA UNIT: [id number] ADM DATE: 05/25/18 AGE: 53 : [birth year] SEX: M ROOM/BED: D.2130 AUTHOR: ADAN MCMAHAN PHYSICIAN: REFERRING PHYSICIAN: VARINDER MIRZA MD DATE OF SERVICE: 05/27/18 Discharge Plan Patient Name: SAMANTA OSEGUERA [facility] : 1965 Planned Disposition: Home Anticipated Discharge Date: 05/26/18 Discharge Date: 05/26/2018 Expected LOS: 1 Initial Reviewer: [email or web address] Initial Review Date: 05/27/2018 Generated: 05/27/18 10:29 am Coverage Notice Reviewer: [email or web address] Bobby Ramirez Notice Issued Date-Time: 05/26/2018 16:05 Notice Type: Medicare Outpatient Observation Notice Notice Delivered To: Patient Relationship to Patient: Self Membership Director Name: Delivery Method: HAND - Hand Delivered Caridad Days: Prior Verbal Notification: Recipient Understood Notice: Yes Recipient Signature: Yes Med Rec Note Co-signed by Attending: Coverage Notice Comment: MOOD DELIVERED AND DISCUSSED, AFTER VERBAL CONSENT OBTAINED, IN FRONT OF PATIENT AND THE FOLLOWING: REGNA (FRIEND), ANGIE (FRIEND), JULIOCESAR (FRIEND). Patient Name: SAMANTA OSEGUERA Page [phone] at 0929 All edits/amendments must be made on the electronic document DICTATION DATE: 05/27/18928 APPLICATION INTERNSHIP: PAUL 05/27/18928 RPT#: [id number] DC DATE:05/26/18 STATUS: DIS IN [facility] [address] [place] [address] END OF REPORT
--- NOTE | 2018-05-28 13:30 | CN ---
PATIENT NAME:SAMANTA OSEGUERA MEDICAL RECORD: [id number] : 61 LOCATION:D. 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 The patient's report not typical for his angina. Cardiac enzymes negative so far. He does have sputum with yellow and some pink-tinged. We are asked to see him concerning cardiovascular status. PAST MEDICAL HISTORY: Includes: 1. History of coronary artery disease described above. 2. Obstructive pulmonary disease. 3. Chronic pain. ALLERGIES: INCLUDE TORADOL, ULTRAM, NONSTEROIDAL. MEDICATIONS: Albuterol 2 puffs t.i.d., Plavix 75 daily, Imdur 30 mg p.o. b.i.d., metoprolol 25 b.i.d., Lyrica 150 t.i.d., primidone 50 q.i.d., Seroquel 150 q.h.s., Effexor 150 b.i.d., Roxicodone 10 mg q.8 p.r.n. SOCIAL HISTORY: Smokes about a pack a day, nondrinker. He is able to care all of his LDL. REVIEW OF SYSTEMS: The patient reports easy bruising but reports no swollen glands. The patient reports no fever, no night sweats, no significant weight gain, no significant weight loss. No significant exercise tolerance. The patient reports no dry eyes, no irritation, no vision change. Patient reports no difficulty hearing and no ear pain. Patient reports no frequent nose bleeds or nose and sinus problems. Patient reports on arm pain on exertion. No shortness of breath while lying down. No history of heart murmur. Patient reports no cough, no wheezing or coughing up blood. Patient reports no abdominal pain, no vomiting. Normal appetite. No diarrhea and not vomiting blood. No nausea and no constipation. Patient reports no incontinence. No difficulty urinating. No hematuria. No increased frequency. Patient reports no muscle aches. No weakness, no arthralgias, no back pain. No swelling of the extremities. Patient reports no abnormal mole, no jaundice, no rashes. Reports no loss of consciousness. No weakness and no numbness. No seizures, dizziness, or headaches. The patient reports no depression, no sleep disturbance, feeling safe in a relationship and no alcohol abuse. Patient reports on fatigue. Reports no runny nose or sinus pressure. No itching, no hives, and no frequent sneezing. PHYSICAL EXAMINATION: GENERAL: Pleasant gentleman, appears stated age, in no acute distress. VITAL SIGNS: Blood pressure 120/72, pulse 61 and regular. HEENT: Normocephalic, atraumatic. NECK: No JVD or bruit. HEART: Regular. A I-II/ systolic ejection murmur. LUNGS: Prolonged respiratory phase, some inspiratory and expiratory wheezes are noted. CONSULT REPORT [id number] SAMANTA OSEGUERA ABDOMEN: Soft, nontender. EXTREMITIES: Pulses well preserved, 2+. There is no edema. DIAGNOSTIC DATA: ECG shows no acute change. Cardiac enzymes negative so far. IMPRESSION: Atypical presentation for patient's angina. Given physical exam findings and history, suspect more pulmonic in origin at this time. Thank you for the consultation. TRANSINT:[id number] Voice Confirmation ID: [id number] DOCUMENT ID: [id number] FER SERNA MD at 1330 CC: [id number] DICTATION DATE: 05/26/18 1137 CMO & PRESIDENT: 05/26/18 1218 DIS IN 05/26/18 [place] [id number] [place] [id number]
== END 2018-05-26 17:27 | disposition home or self-care (01) ==
LOC: D.ER 20:54 → D.EDHOLD 23:31 → OBSVTIME 23:31 → D.M2 05-26 00:23
PROVIDERS: Family Medicine; ADMIT Family Medicine
DX: J40 Bronchitis, not specified as acute or chronic (principal); I25.119 Atherosclerotic heart disease of native coronary artery with unspecified angina pectoris; J44.9 Chronic obstructive pulmonary disease, unspecified; G89.29 Other chronic pain; I11.0 Hypertensive heart disease with heart failure; I50.9 Heart failure, unspecified; Z72.0 Tobacco use; Z86.73 Personal history of transient ischemic attack (TIA), and cerebral infarction without residual deficits

== ENCOUNTER → 2018-07-01 14:49 | Outpatient (CLI) | payer MEDICARE ==
[2018-05-26 12:24] VITALS: BMI 32.5
[~2018-07-01 14:49] MED LIST changes: +ZPAK PO
== END | disposition home or self-care (01) ==
LOC: D.CT 06-30 13:00
DX: M25.512 Pain in left shoulder (principal)

== ENCOUNTER 2018-09-26 22:44 | Observation (INO) | payer MEDICARE ==
[~2018-09-26] VITALS: Ht 175.3 cm; Wt 101.5 kg
--- NOTE | ~2018-09-26 | HEMODYNAMI ---
PATIENT:SAMANTA OSEGUERA MEDICAL RECORD: [id number] : 61 [id number] ADMISSION DATE: 09/26/18 Generatedon:09/28/201814:15 Patient name: SAMANTA OSEGUERA Patient #: [id number] SSN: [id number] : 1965 Date of study: 09/28/2018 Page: Of Hemodynamic Procedure Report Patient Data Patient Demographics Procedure consent was obtained First Name: SAMANTA Gender: Male Last Name: OUMAR : 1965 [facility] Initial: KRISTEN Age: 53 year(s) Patient #: [id number] Race: SSN: [id number] Additional ID: [id number] Contact details [address]: [address] [place] [address] State: [place] City: [place] Zip code: [address] Past Medical History Allergies Allergen Reaction Date Comments Reported Other allergy 06/17/2014 ASA, Benzocaine, Lamictal, Neurotin, NSAIDS, Toradol, Trazadone, Ultram, Hydrocodone. Admission Admission Data Admission Date: 09/26/2018 Admission Time: 23:42 Admit Source: Other Insurance Payor: Medicare Room #: D.2123 Height (in.): 68.9 BSA: 2.16 (m2) Height (cm.): 175 BMI: 33.14 (kg/m2) Weight (lbs.): 223.77 Weight (kg.): 101.5 Lab Results Lab Result Date: 09/28/2018 Lab Result Time: 0:00 Biochemistry Name Units Result Min Max BUN mg/dl 12 --(-*--)-- 7 18 Creatinine mg/dl 0.9 --(-*--)-- 0.6 1.3 CBC Name Units Result Min Max Hemoglobin g/dl 13.2 -*(----)-- 13.5 17.5 Procedure Procedure Types Cath Procedure Diagnostic Procedure LHC LHC w/Coronaries Procedure Description Procedure Date Procedure Date: 09/28/2018 Procedure Start Time: 13:54 Procedure End Time: 14:08 Procedure Staff Name Function Candelaria Robb RT Monitor Arnaldo Silva RN Syrup Machine Laborer Corey Benítez MD Additional personnel Steven Diggs MD Performing Physician Zayra Avendaño RT Scrub Mai Flores RN Nurse Procedure Data Cath Procedure Fluoroscopy Diagnostic fluoroscopy Total fluoroscopy Time: 1.5 time: 1.5 min min Diagnostic fluoroscopy Total fluoroscopy dose: 1.5 dose: 1.5 mGy mGy Contrast Material Contrast Material Type Amount (ml) Isovue 370 542 Entry Location Entry Primary Successful Side Size Upsize Upsize Entry Closure Succes sful Closure Location (Fr) 1 (Fr) 2 (Fr) Remarks Device Remarks Femoral Right 5 Fr Exoseal artery Estimated blood loss: 5 ml Diagnostic catheters Device Type Used For End Catheter Placement MULTIPACK JL 4.0 5Fr Left Coronary catheter Angiography MULTIPACK 3DRC 5Fr Right Coronary catheter Angiography MULTIPACK Pigtail 5 Fr LV Angiography catheter Procedure Complications No complications Procedure Medications Medication Administration Route Dosage 0.9% NaCl I.V. 100 ml/hr Oxygen etCO2 Nasal cannula 2 l/min Lidocaine 2% added to field 20 Heparin Flush Bag added to field 2 bags (1000units/500ml NS) Refer to Anesthesia Notes for Sedation Medications Hemodynamics Rest BSA: 2.16 (m2) HGB: 13.2 (g/dl) O2 Consumption: Estimated: 248.07 (ml/min) O2 Co nsumption indexed: Estimated:114.85 (ml/min/m) Heart Rate: 60 (bpm) Pressure Samples Time Site Value (mmHg) Purpose Heart Use Rate(bpm) 14:04 LV 130/9,21 Snapshot 64 14:05 LV 131/8,29 Pullback 67 14:05 AO 130/74(99) Pullback 67 Gradients Valve Time Site 1 Site 2 Mean SEP/DFP Peak To Heart Use (mmHg) (sec/min) Peak Rate (mmHg) (bpm) Aortic 14:05 LV AO 11 17 1 67 131/8,29 130/74(99) Calculations Valve P-P Mean Valve Index Valve Source Name Gradient Area Flow (cm2) Aortic 1 11 1 11 Snapshots Pre Cath Intra NCS Post Cath Vital Signs Time Heart Resp SPO2 etCO2 NIBP (mmHg) Rhythm Pain Sedation Rate (ipm) (%) (mmHg) Status Level (bpm) 13:14:25 59 16 100 43 167/89(137) SB 0 (11) 10(A) , No pain 13:20:23 59 16 100 29.9 164/81(136) SB 0 (11) 10(A) , No pain 13:24:56 55 16 98 44.9 132/119(128) SB 0 (11) 10(A) , No pain 13:29:22 61 21 99 13.4 148/83(128) SB 0 (11) 10(A) , No pain 13:33:50 57 15 100 38.1 153/84(134) SB 0 (11) 10(A) , No pain 13:38:23 59 15 97 21.7 148/86(123) SB 0 (11) 10(A) , No pain 13:42:37 60 18 97 30.6 122/81(101) NSR 0 (11) 10(A) , No pain 13:47:50 60 12 98 32 143/85(125) NSR 0 (11) 10(A) , No pain 13:52:18 59 16 99 30 150/84(127) NSR 0 (11) 5(A) , No pain 13:56:45 57 11 98 11 125/73(98) NSR 0 (11) 5(A) , No pain 14:01:05 64 21 98 9.7 117/73(99) NSR 0 (11) 5(A) , No pain 14:05:27 64 22 98 25.4 123/72(100) NSR 0 (11) 10(A) , No pain 14:11:31 62 18 94 34.4 125/80(100) NSR 0 (11) 10(A) , No pain 14:15:25 61 13 96 35.9 131/86(112) NSR 0 (11) 10(A) , No pain Medications Time Medication Route Dose Verified Delivered Reason Notes Eff ectiveness by by 13:12:35 0.9% NaCl I.V. 100 Steven Mai used for ml/hr Dontae Flores bi technical lead 13:12:42 Oxygen etCO2 2 Steven Mai used for Nasal l/min Dontae Flores procedure cannula RN 13:12:48 Lidocaine 2% added 20ml Steven Steven for local to vial Dontae Diggs MD anesthetic field 13:12:54 Heparin Flush added 2 Steven Steven used for Bag to bags Dontae Diggs MD procedure (1000units/500ml field NS) 13:50:49 Refer to Steven Steven Anesthesia Notes Dontae Diggs MD for Sedation Medications Procedure Log Time Note 12:53:02 Zayra Avendaño RT(R) sent for patient. Start room use. 12:53:03 Time tracking: Regular hours (M-F 7:00 - 5:00) 12:53:08 Plan of Care:Hemodynamics will remain stable., Cardiac rhythm will remain stable., Comfort level will be maintained., Respiratory function will remain adequate., Patient/ family verbilizes understanding of procedure., Procedure tolerated without complication., Recovers from procedure without complications.. 12:53:37 Admit Source: Other 12:53:42 Patient Weight : 223.77 lbs 12:53:47 Patient Height : 68.9 inches 12:54:05 Insurance Payor : Medicare 12:54:25 Lab Result : Hemoglobin 13.2 g/dl 12:54:25 Lab Result : Creatinine 0.9 mg/dl 12:54:25 Lab Result : BUN 12 mg/dl 13:06:16 Patient received from Med II to [facility] 2 Alert and oriented. Tansferred to table in Supine position. 13:06:18 Warm blankets applied, and bianka hugger turned on for patient comfort. 13:06:19 Correct patient and procedure confirmed by team. 13:06:26 Signed procedure consent form obtained from patient. 13:06:34 ECG and BP/O2 sat monitors applied to patient. 13:12:35 0.9% NaCl 100 ml/hr I.V. was administered by Mai Flores RN; used for procedure; 13:12:42 Oxygen 2 l/min etCO2 Nasal cannula was administered by Mai Flores RN; used for procedure; 13:12:47 Vital chart was started 13:12:47 Baseline sample Acquired. 13:12:48 Lidocaine 2% 20ml vial added to field was administered by Steven Diggs MD; for local anesthetic; 13:12:51 Rhythm: sinus rhythm 13:12:52 Full Disclosure recording started 13:12:53 Pre-op teaching completed and patient verbalized understanding. 13:12:53 Pre-procedure instructions explained to patient. 13:12:54 Heparin Flush Bag (1000units/500ml NS) 2 bags added to field was administered by Steven Diggs MD; used for procedure; 13:12:55 Family unavailable. 13:12:57 Patient NPO since Midnight. 13:12:59 Is patient on blood thinner?Yes 13:13:05 ACC The patient was administered the following blood thiners within the last 24 hours: ACCPlavix 13:13:08 Patient diabetic? No. 13:13:11 Previous problem with sedation/anesthesia? No ? 13:13:13 Snore? Yes 13:13:14 Sleep apnea? Yes 13:13:15 Opens mouth fully? Yes 13:13:15 Deviated septum? No 13:13:16 Sticks out tongue? Yes 13:13:19 Airway obstruction? Yes COPD 13:13:22 Dentures? No ? 13:13:51 Pre procedure: right dorsailis pedis pulse 1+ Palpable, but thready & weak; easily obliterated 13:13:55 Patient pain scale 0/10 ?. 13:14:33 Lab results completed and on chart. 13:14:36 Right groin area was prepped with chlora-prep and draped in sterile fashion 13:14:37 Sharps counted by scrub and verified by R.N. 13:14:37 Alarms reviewed by R. N. 13:14:42 Use device set Femoral Dx 13:14:43 ACIST Syringe (65343) opened to sterile field. 13:14:44 Bag Decanter (2002S) opened to sterile field. 13:14:45 ACIST Manifold (37282) opened to sterile field. 13:14:45 ACIST Hand Control (55001) opened to sterile field. 13:14:46 Tegaderm 4 x 4 (1626W) opened to sterile field. 13:14:48 DIAGNOSTIC WIRE .035 260cm J wire (240870) opened to sterile field. 13:14:48 Medline Cath Pack ([id number]) opened to sterile field. 13:14:49 SHEATH 5FR [place] (DBS139) opened to sterile field. 13:14:49 DIAGNOSTIC Multipack 5Fr catheter set (EM2073) opened to sterile field. 13:31:38 IV Left upper arm D/C'd due to infiltration. 13:32:43 IV started by Arnaldo Silva RN inleft wrist with a 22 gauge IV catheter with 0.9% NaCl at KVO. 13:44:47 Final Timeout: patient, procedure, and site verified with staff and physician. All members of the team are in agreement. 13:44:47 --------ALL STOP TIME OUT------ 13:44:47 Physician arrived 13:44:50 Right groin site verified by team. 13:44:53 Maximum allowable Isovue 300 dose 300ml. Physician notified. (300ml for normal creatinines. For patients with creatinine of 1.7 or higher multiply weight(kg) x 5 divided by creatinine.) 13:44:57 Fire Safety Assessment: A--An alcohol-based skin anteseptic being used preoperatively., C--Open oxygen or nitrous oxide is being used., D--An ESU, laser, or fiber-optic light is being used. 13:45:03 Physical assessment completed. ASA score P 2 - A patient with mild systemic disease as per Steven Diggs MD. 13:45:08 Sedation plan: TIVA Medication:Propofol 13:50:49 Refer to Anesthesia Notes for Sedation Medications was administered by Steven Diggs MD; ; 13:54:05 Procedure started. 13:54:50 Local anesthetic to right femoral artery with Lidocaine 2% by Steven Diggs MD.INITIAL ACCESS ONLY 13:57:23 A 5 Fr sheath was inserted into the Right Femoral artery 13:57:38 A MULTIPACK JL 4.0 5Fr catheter was advanced over the wire and used for Left Coronary Angiography. 13:59:05 LCA angiography performed. 13:59:09 Injector settings: Ml/sec: 3, Volume: 6, 14:00:30 Catheter removed. 14:00:41 A MULTIPACK 3DRC 5Fr catheter was advanced over the wire and used for Right Coronary Angiography. 14:03:16 RCA angiography performed. 14:03:19 Injector settings: Ml/sec: 3, Volume: 6, 14:04:55 Catheter removed. 14:05:02 A MULTIPACK Pigtail 5 Fr catheter was advanced over the wire and used for LV Angiography. 14:05:12 EF : 55 % 14:05:24 LV hemodynamics recorded. 14:05:27 Catheter removed. 14:05:29 EXOSEAL 5Fr (EX500) opened to sterile field. 14:05:38 Sheath removed intact; hemostasis achieved with Exoseal to the Right Femoral artery. 14:05:56 Procedure ended.(Physican Out) 14:06:23 Fluoroscopy time 01.50 minutes. 14:07:40 Fluoroscopy dose: 1.5 mGy 14:07:40 Flurop Dose total: 1.5 14:07:47 Contrast amount:Isovue 370 542ml. 14:07:51 Insertion/operative site no bleeding no hematoma. 14:07:51 Sharps counted by scrub and verified by R.N. 14:07:55 Post-op/insertion site Right Femoral artery dressed using a 4 x 4 and Tegaderm. 14:07:57 Post Procedure Pulses reassessed and unchanged 14:08:04 Post procedure rhythm: unchanged. 14:08:08 Estimated blood loss: 5 ml 14:08:11 Patient needs reinforcement of post procedure teaching. 14:08:11 Post procedure instruction explained to patient.Patient verbalizes understanding. 14:08:27 Procedure and supply charges have been captured, reviewed, submitted and are correct. 14:08:32 Procedure Complication : No complications 14:08:36 Vital chart was stopped 14:08:37 See physician's report for complete and final results. 14:08:43 Report given to [facility]. 14:08:46 Patient transfered to [facility] with Stretcher. 14:08:49 Full Disclosure recording stopped 14:08:49 Procedure ended. 14:08:54 End room use (Document Last) Device Usage Item Name Manufacture Quantity Catalog Hospital Part Current Minimal L ot# / Number Charge Number Stock Stock Serial# Code ACIST Acist 1 80826 834536 382942 023432 20 Syringe Medical (56441) Systems Inc Bag Microtek 1 2001S 132277 29198 204910 5 Decanter Medical Inc. () ACIST Hand Acist 1 54142 387824 854699 556355 5 Control Medical (05731) Systems Inc ACIST Acist 1 61882 310679 163079 230087 5 Manifold Medical (62829) Systems Inc Tegaderm 4 3M 1 1626W 223314 149299 255386 5 x 4 (1626W) Medline Medline 1 [id number] 331457 87431 997625 5 Cath Pack ([id number]) DIAGNOSTIC [place] 1 275632 358346 061519 033519 30 WIRE .035 260cm J wire (821810) DIAGNOSTIC Cardinal 1 VX5431 713476 34145 882576 30 Multipack Health 5Fr catheter set (PU4185) SHEATH 5FR [place] 1 ORT805 247080 025612 736858 5 [place] (THF317) MULTIPACK Cardinal 1 626507 5 JL 4.0 5Fr Health catheter MULTIPACK Cardinal 1 125535 5 3DRC 5Fr Health catheter MULTIPACK Cardinal 1 255388 5 Pigtail 5 Health Fr catheter EXOSEAL 5Fr Cardinal 1 EX500 017503 151489 120632 10 (EX500) Health Signature Audit [place] Stage Time Signature Unsigned Intra-Procedure 09/28/2018 Candelaria Robb 2:15:55 PM RT(R) Signatures Monitor : Candelaria Robb RT Signature : Date : Time : [id number] [place] [address]
[2018-09-26 23:16] LABS: EOSINOPHILS 5.3 % (0-7); HEMATOCRIT 41.6 % (42.0-54.0); HEMOGLOBIN 14.4 g/dL (13.5-17.5); LYMPHOCYTES 31.5 % (15-50); MCHC 34.6 g/dL (31.0-37.0); MCV 89.5 fL (80.0-100.0); MEAN PLATELET VOLUME 9.9 fL (7.4-10.4); MONOCYTES 10.6 % (2-11); NEUTROPHILS 50.6 % (40-80); PLATELET COUNT 210 10x3/uL (130-400); RBC 4.65 10x6/uL (4.20-6.10); RDW 13.9 % (11.5-14.5)
[2018-09-26 23:20] LABS: APTT 26.5 SECONDS (22.8-39.4); INR 0.96 (0.85-1.17); PROTIME 12.3 SECONDS (11.6-15.0)
[2018-09-26 23:26] LABS: ALBUMIN 3.8 g/dL (3.4-5.0); ALKALINE PHOSPHATASE 104 U/L (46-116); ALT (SGPT) 36 U/L (10-68); BILIRUBIN - TOTAL 0.23 mg/dL (0.2-1.3); CALC OSMOLALITY 277 mosm/kg (275-300); CALCIUM 8.8 mg/dL (8.5-10.1); CARBON DIOXIDE 28.9 mmol/L (21.0-32.0); CHLORIDE - SERUM 101 mmol/L (98-107); GLUCOSE 132 mg/dL (74-106); POTASSIUM - SERUM 3.8 mmol/L (3.5-5.1); PROTEIN - SERUM 7.2 g/dL (6.4-8.2); SODIUM 139 mmol/L (136-145); UREA NITROGEN 8 mg/dL (7-18); eGFR NON AFRICAN AMERICAN 82 mL/min (90-120)
[2018-09-26 23:29] VITALS: BP 168/87
[2018-09-26 23:39] LABS: CKMB 2.8 U/L (0.0-3.6); CREATINE KINASE 74 UL (21-232); TROPONIN-I < 0.017 ng/mL (0.000-0.060)
--- NOTE | 2018-09-27 00:12 | NUR ---
IV WILL NOT FLUSH, UNABLE TO ADMINISTER MEDS. RN WILL ATTEMPT TO FIND NEW IV SITE.
--- NOTE | 2018-09-27 01:12 | NUR ---
IV ESTABLISHED TO L SHOULDER AFTER MULTIPLE ATTEMPTS. PT TOLERATED WELL. IV MORPHINE/ZOFRAN ADMINISTERED AT THIS TIME.
[2018-09-27] MEDS ORDERED: MELATONIN 3 MG1 TAB PO (01:25)
--- NOTE | 2018-09-27 01:52 | NUR ---
RECEIVED FROM ER VIA WHEELCHAIR, PT IS A&O X4, TELEMTRY IS ON SR-79, PT IS REQUESTING NICOTINE PATCH AT THIS TIME, BED IS LOW, SRX2, CALL LIGHT IN REACH, PT TOOK ALL NIGHT TIME MEDS OF HIS OWN MEDS, WILL CONTINUE PLAN OF CARE
--- NOTE | 2018-09-27 02:08 | NUR ---
I have reviewed this patient and I concur with the Shift Assessment completed by the Licensed Practical Nurse today this shift.
--- NOTE | 2018-09-27 02:14 | NUR ---
ADMISSION ASSESSMENT COMPLETED. PT ALERT/ORIENTED. PIV TO EDDIE SALINE LOCKED. PLAN OF CARE INITIATED.
[2018-09-27 02:21] VITALS: BMI 32.5
[2018-09-27 04:30] VITALS: BP 178/93
--- NOTE | 2018-09-27 07:30 | NUR ---
PT RESTING IN BED WITH EYES CLOSED. RR EVEN AND UNLABORED. PT WEARING C-PAP. NO S/S OF DISTRESS. BED LOW CALL LIGHT WITHIN REACH. WILL CONTINUE TO MONITOR.
[2018-09-27 07:56] VITALS: BP 145/88
[2018-09-27 08:00] LABS: BASOPHILS 0.8 % (0-2); EOSINOPHILS 5.4 % (0-7); HEMATOCRIT 40.7 % (42.0-54.0); IMMATURE GRANULOCYTES 0.9 % (0-5); LYMPHOCYTES 32.1 % (15-50); MCH 30.9 pg (26.0-34.0); MCHC 34.4 g/dL (31.0-37.0); MCV 89.8 fL (80.0-100.0); MEAN PLATELET VOLUME 10.5 fL (7.4-10.4); MONOCYTES 8.7 % (2-11); NEUTROPHILS 52.1 % (40-80); PLATELET COUNT 238 10x3/uL (130-400); RBC 4.53 10x6/uL (4.20-6.10); RDW 13.6 % (11.5-14.5); WBC 8.7 10x3/uL (4.8-10.8)
[2018-09-27 08:07] LABS: CALC OSMOLALITY 272 mosm/kg (275-300); CALCIUM 8.8 mg/dL (8.5-10.1); CHLORIDE - SERUM 100 mmol/L (98-107); GLUCOSE 120 mg/dL (74-106); POTASSIUM - SERUM 3.9 mmol/L (3.5-5.1); SODIUM 137 mmol/L (136-145); UREA NITROGEN 8 mg/dL (7-18); eGFR NON AFRICAN AMERICAN 82 mL/min (90-120)
[2018-09-27 08:08] LABS: CARBON DIOXIDE 21.5 mmol/L (21.0-32.0)
[2018-09-27 10:56] VITALS: Ht 175.3 cm; Wt 101.5 kg
[2018-09-27 11:22] VITALS: BP 147/80
[2018-09-27 11:32] LABS: CKMB 2.3 U/L (0.0-3.6); CREATINE KINASE 67 UL (21-232)
[2018-09-27 11:33] LABS: TROPONIN-I < 0.017 ng/mL (0.000-0.060)
[2018-09-27 14:06] LABS: APPEARANCE CLEAR (CLEAR); BILIRUBIN NEGATIVE (NEGATIVE); COLOR STRAW (YELLOW); GLUCOSE NEGATIVE (NEGATIVE); KETONE NEGATIVE (NEGATIVE); NITRITE NEGATIVE (NEGATIVE); PROTEIN NEGATIVE (NEGATIVE); SPECIFIC GRAVITY 1.005 (1.005-1.020); UROBILINOGEN NORMAL (NORMAL)
[2018-09-27 16:32] LABS: CKMB 1.9 U/L (0.0-3.6); CREATINE KINASE 59 UL (21-232)
[2018-09-27 16:33] LABS: TROPONIN-I < 0.017 ng/mL (0.000-0.060)
--- NOTE | 2018-09-27 16:45 | NUR ---
PT RESTING IN BED ITH CPAP GOING. RR EVEN AND UNLABORED. NO S/S OF DISTRESS AT THIS TIME. BED LOPW CALL LIGHT WITHIN REACH. WILL CONTINUE TO MONITOR.
--- NOTE | 2018-09-27 16:46 | NUR ---
I have reviewed this patient and I concur with the Shift Assessment completed by the Licensed Practical Nurse today this shift.
[2018-09-27 16:49] VITALS: BP 148/82
[2018-09-27 18:41] LABS: PLT FUNCT.(P2Y12) PLAVIX 190 PRU (194-418)
--- NOTE | 2018-09-27 19:19 | NUR ---
RECIEVED REPORT, WILL ASSUME CARE OF PT, WATCHING TV, DENIES ANY NEEDS AT THIS TIME, HR-66-SR, BED IS LOW, SRX2, CALL LIGHT IN REACH, WILL CONTINUE PLAN OF CARE
--- NOTE | 2018-09-27 19:45 | NUR ---
CONSENTS SIGNED FOR CATH IN AM
[2018-09-27 20:07] VITALS: BP 144/83
[2018-09-27 23:26] LABS: CKMB 1.3 U/L (0.0-3.6); CREATINE KINASE 60 UL (21-232)
[2018-09-27 23:29] LABS: TROPONIN-I < 0.017 ng/mL (0.000-0.060)
[2018-09-27 23:49] VITALS: BP 118/67
[2018-09-28 04:23] VITALS: BP 105/57
[2018-09-28 05:20] LABS: BASOPHILS 0.7 % (0-2); EOSINOPHILS 4.5 % (0-7); HEMOGLOBIN 13.2 g/dL (13.5-17.5); IMMATURE GRANULOCYTES 0.8 % (0-5); LYMPHOCYTES 34.6 % (15-50); MCH 30.2 pg (26.0-34.0); MCHC 33.8 g/dL (31.0-37.0); MCV 89.2 fL (80.0-100.0); MEAN PLATELET VOLUME 10.5 fL (7.4-10.4); MONOCYTES 8.7 % (2-11); NEUTROPHILS 50.7 % (40-80); PLATELET COUNT 227 10x3/uL (130-400); RBC 4.37 10x6/uL (4.20-6.10); RDW 13.9 % (11.5-14.5); WBC 7.5 10x3/uL (4.8-10.8)
[2018-09-28 05:27] LABS: CALCIUM 8.9 mg/dL (8.5-10.1); CHLORIDE - SERUM 103 mmol/L (98-107); CREATININE - SERUM 0.9 mg/dL (0.6-1.3); GLUCOSE 97 mg/dL (74-106); SODIUM 140 mmol/L (136-145); eGFR NON AFRICAN AMERICAN > 90 mL/min (90-120)
[2018-09-28 05:31] LABS: CALC OSMOLALITY 278 mosm/kg (275-300); CARBON DIOXIDE 28.6 mmol/L (21.0-32.0); UREA NITROGEN 12 mg/dL (7-18)
--- NOTE | 2018-09-28 07:28 | NUR ---
GAVE 2MG OF MORPHINE FOR PAIN LEVEL OF 7/10. PT DENIES ANY OTHER NEEDS AT THIS TIME. USING CPAP AT THIS TIME. RESP EVEN AND NONLABORED, A/O X4. LT UPPER ARM IV SL. CALL LIGHT IN REACH, NAD NOTED, WILL CONTINUE PLAN OF CARE.
[2018-09-28 08:08] VITALS: BP 131/68
--- NOTE | 2018-09-28 09:15 | NUR ---
AM MEDS GIVEN WITH A SIP OF WATER. PT DENIES ANY NEEDS AT THIS TIME. CALL LIGHT IN REACH, NAD NOTED,W ILL CONTINUE TO MONITOR.
[2018-09-28 11:57] VITALS: BP 116/72
--- NOTE | 2018-09-28 13:15 | NUR ---
PT TO DIGITAL PHOTOGRAPHER.
--- NOTE | 2018-09-28 14:25 | NUR ---
RECEIVED PT BACK TO ROOM 2123, PT DROWSY BUT EASILY AROUSES TO VOICE. VITAL SIGNS STABLE, PLACED PT ON Q15MIN VITALS. DRESSING TO RIGHT GROIN CDI. NO SIGNS OF BLEEDING OR HEMATOMA NOTED. PT DENIES ANY NEEDS AT THIS TIME. GUARD AT BEDSIDE, NAD NOTED, WILL CONTINUE TO MONITOR.
--- NOTE | 2018-09-28 14:35 | NUR ---
RECEIVED PT BACK TO ROOM 2122 VIA BED, PT A/O X4. C/O PAIN TO BACK 12/26, GAVE 15MG OF OXY IR. VITAL SIGNS STABLE, PLACED PT ON Q15MIN VITAL SIGNS. DRESSING TO RT GROIN CDI, NO SIGNS OF BLEEDING OR HEMATOMA. PT DENIES ANY NEEDS AT THIS TIME. CALL LIGHT IN REACH, NAD NOTED, WILL CONTINUE TO MONITOR.
[2018-09-28 15:44] VITALS: BP 145/86
--- NOTE | 2018-09-28 17:06 | NUR ---
NO CHANGES TO RIGHT GROIN FROM PREVIOUS ASSESSMENT. PT RESTING COMFORTABLY IN BED, STILL C/O BACK PAIN. DENIES ANY NEEDS AT THIS TIME. CALL LIGHT IN REACH,NAD NOTED.
--- NOTE | 2018-09-28 17:55 | NUR ---
PROVIDED VERBAL AND WRITTEN DISCHARGE TEACHING TO PT, WHO VERBALIZED UNDERSTANDING REGARDING TEACHING. D/C LT WRIST AND LT SHOULDER IV WITH CATHETER TIP INTACT. HEART MONITOR REMOVED AND TAKEN TO RECREATIONAL FACILITIES MOTEL MANAGER JUDY. PT GETTING DRESSED AND WILL NOTIFY NURSE WHEN READY FOR WHEELCHAIR. DRESSING TO RIGHT GROIN, CDI, NO CHANGES FROM PREVIOUS ASSESSMENT.
--- NOTE | 2018-09-28 18:18 | NUR ---
PT LEFT UNIT VIA WHEELCHAIR, WITH ALL BELONGINGS, ACCOMPANIED BY FAMILY.
--- NOTE | 2018-09-29 08:21 | MORECARE ---
CASE MANAGEMENT DISCHARGE SUMMARY PATIENT: SAMANTA OSEGUERA UNIT: [id number] ADM DATE: 09/26/18 AGE: 53 : 61 SEX: M ROOM/BED: D.2123 AUTHOR: ADAN MCMAHAN PHYSICIAN: REFERRING PHYSICIAN: PIA BOSE MD DATE OF SERVICE: 09/29/18 Discharge Plan Patient Name: SAMANTA OSEGUERA [facility] [facility] 1965 Planned Disposition: Home Anticipated Discharge Date: 09/28/18 Discharge Date: 09/28/2018 Expected LOS: 2 Initial Reviewer: [email or web address] Initial Review Date: 09/29/2018 Generated: 09/29/18 9:21 am Patient Name: SAMANTA OSEGUERA Page [id number] at 0821 All edits/amendments must be made on the electronic document DICTATION DATE: 09/29/18820 LOFTSMAN: PALU 09/29/18820 RPT#: [id number] DC DATE:09/28/18 STATUS: DIS IN [facility] [address] [place] [address] END OF REPORT
== END 2018-09-28 18:18 | disposition home or self-care (01) ==
LOC: D.ER 22:44 → D.EDHOLD 23:42 → OBSVTIME 23:42 → D.M2 23:57
PROVIDERS: Family Medicine; Internal Medicine Cardiovascular Disease; ADMIT Internal Medicine Nephrology; ATTEND Internal Medicine Nephrology
DX: I25.110 Atherosclerotic heart disease of native coronary artery with unstable angina pectoris (principal); J44.9 Chronic obstructive pulmonary disease, unspecified; E78.5 Hyperlipidemia, unspecified; I10 Essential (primary) hypertension; G47.33 Obstructive sleep apnea (adult) (pediatric); G40.909 Epilepsy, unspecified, not intractable, without status epilepticus; F31.9 Bipolar disorder, unspecified; F41.9 Anxiety disorder, unspecified; M54.2 Cervicalgia; G89.29 Other chronic pain; F17.213 Nicotine dependence, cigarettes, with withdrawal

== ENCOUNTER 2018-12-02 18:13 | Emergency (ER) | payer MEDICARE ==
[~2018-12-02] VITALS: Ht 175.3 cm; Wt 104.5 kg
[~2018-12-02 18:13] MED LIST changes: +MELATONIN 3 MG1 TAB PO
[2018-12-02 18:19] VITALS: Ht 175.3 cm; Wt 104.5 kg
[2018-12-02 18:57] LABS: BASOPHILS 0.7 % (0-2); EOSINOPHILS 5.4 % (0-7); HEMATOCRIT 42.4 % (42.0-54.0); HEMOGLOBIN 14.3 g/dL (13.5-17.5); IMMATURE GRANULOCYTES 0.5 % (0-5); LYMPHOCYTES 30.5 % (15-50); MCH 30.4 pg (26.0-34.0); MCHC 33.7 g/dL (31.0-37.0); MEAN PLATELET VOLUME 9.6 fL (7.4-10.4); MONOCYTES 10.2 % (2-11); NEUTROPHILS 52.7 % (40-80); PLATELET COUNT 236 10x3/uL (130-400); RBC 4.71 10x6/uL (4.20-6.10); RDW 14.1 % (11.5-14.5); WBC 7.7 10x3/uL (4.8-10.8)
[2018-12-02 19:05] LABS: INR 0.95 (0.85-1.17); PROTIME 12.2 SECONDS (11.6-15.0)
[2018-12-02 19:12] LABS: ALBUMIN 3.8 g/dL (3.4-5.0); ALKALINE PHOSPHATASE 101 U/L (46-116); ALT (SGPT) 22 U/L (10-68); BILIRUBIN - TOTAL 0.25 mg/dL (0.2-1.3); CALC OSMOLALITY 279 mosm/kg (275-300); CALCIUM 8.8 mg/dL (8.5-10.1); CARBON DIOXIDE 27.7 mmol/L (21.0-32.0); CHLORIDE - SERUM 101 mmol/L (98-107); CREATININE - SERUM 1.2 mg/dL (0.6-1.3); GLUCOSE 133 mg/dL (74-106); POTASSIUM - SERUM 3.4 mmol/L (3.5-5.1); PROTEIN - SERUM 7.5 g/dL (6.4-8.2); SODIUM 139 mmol/L (136-145); UREA NITROGEN 13 mg/dL (7-18); eGFR NON AFRICAN AMERICAN 67 mL/min (90-120)
[2018-12-02 19:25] LABS: CKMB 1.6 U/L (0.0-3.6); CREATINE KINASE 62 UL (21-232); MAGNESIUM - SERUM 1.9 mg/dL (1.8-2.4)
[2018-12-02 19:32] LABS: TROPONIN-I < 0.017 ng/mL (0.000-0.060)
[2018-12-02] MEDS ORDERED: TYLENOL W/CODEI1 TAB PO (19:35)
[2018-12-02 19:42] LABS: APTT < 22.0 SECONDS (22.8-39.4)
[2018-12-02 21:24] VITALS: BP 153/84
== END 2018-12-02 21:25 | disposition home or self-care (01) ==
LOC: D.ER 18:13
PROVIDERS: Family Medicine
DX: R07.9 Chest pain, unspecified (principal); E87.6 Hypokalemia; Z86.73 Personal history of transient ischemic attack (TIA), and cerebral infarction without residual deficits; J44.9 Chronic obstructive pulmonary disease, unspecified; F32.9 Major depressive disorder, single episode, unspecified; I11.0 Hypertensive heart disease with heart failure; I50.9 Heart failure, unspecified

== ENCOUNTER 2018-12-11 17:19 | Emergency (ER) | payer MEDICARE ==
[~2018-12-11] VITALS: Ht 175.3 cm; Wt 104.5 kg
[~2018-12-11 17:19] MED LIST changes: +TYLENOL W/CODEI1 TAB PO
[2018-12-11 17:21] VITALS: Ht 175.3 cm; Wt 104.5 kg
[2018-12-11 18:03] LABS: BASOPHILS 0.7 % (0-2); EOSINOPHILS 3.8 % (0-7); HEMATOCRIT 42.6 % (42.0-54.0); HEMOGLOBIN 14.8 g/dL (13.5-17.5); IMMATURE GRANULOCYTES 2.1 % (0-5); LYMPHOCYTES 23.2 % (15-50); MCH 31.2 pg (26.0-34.0); MCHC 34.7 g/dL (31.0-37.0); MCV 89.7 fL (80.0-100.0); MEAN PLATELET VOLUME 9.9 fL (7.4-10.4); MONOCYTES 7.2 % (2-11); PLATELET COUNT 250 10x3/uL (130-400); RBC 4.75 10x6/uL (4.20-6.10); RDW 14.4 % (11.5-14.5); WBC 10.7 10x3/uL (4.8-10.8)
[2018-12-11 18:14] LABS: INR 0.95 (0.85-1.17); PROTIME 12.2 SECONDS (11.6-15.0)
[2018-12-11 18:18] LABS: ALBUMIN 4.1 g/dL (3.4-5.0); ALKALINE PHOSPHATASE 108 U/L (46-116); ALT (SGPT) 45 U/L (10-68); BILIRUBIN - TOTAL 0.25 mg/dL (0.2-1.3); CALC OSMOLALITY 271 mosm/kg (275-300); CALCIUM 9.2 mg/dL (8.5-10.1); CARBON DIOXIDE 31.6 mmol/L (21.0-32.0); CHLORIDE - SERUM 97 mmol/L (98-107); CREATININE - SERUM 1.2 mg/dL (0.6-1.3); GLUCOSE 115 mg/dL (74-106); POTASSIUM - SERUM 3.7 mmol/L (3.5-5.1); PROTEIN - SERUM 7.8 g/dL (6.4-8.2); SODIUM 135 mmol/L (136-145); UREA NITROGEN 15 mg/dL (7-18); eGFR NON AFRICAN AMERICAN 67 mL/min (90-120)
[2018-12-11 18:30] LABS: CKMB 2.1 U/L (0.0-3.6); CREATINE KINASE 82 UL (21-232)
[2018-12-11 18:32] LABS: TROPONIN-I < 0.017 ng/mL (0.000-0.060)
[2018-12-11] MEDS ORDERED: MEDROL DOSE PACK4 MG PO (22:57)
[2018-12-11 23:49] VITALS: BP 178/109
== END 2018-12-11 23:50 | disposition home or self-care (01) ==
LOC: D.ER 17:19
PROVIDERS: Family Medicine
DX: M62.838 Other muscle spasm (principal); E86.0 Dehydration; M79.18 Myalgia, other site; I10 Essential (primary) hypertension; J44.9 Chronic obstructive pulmonary disease, unspecified; F17.290 Nicotine dependence, other tobacco product, uncomplicated

== ENCOUNTER 2019-02-06 23:14 | Emergency (ER) | payer MEDICARE ==
[~2019-02-06] VITALS: Ht 175.3 cm; Wt 109.1 kg
[2019-02-06 23:24] VITALS: Ht 175.3 cm; Wt 109.1 kg
[2019-02-06] MEDS ORDERED: PLAVIX75 MG PO (23:28)
[2019-02-06] MEDS ORDERED: FUROSEMIDE20 MG PO (23:28)
[2019-02-06] MEDS ORDERED: ANORO ELLIPTA1 EACH INH (23:29)
[2019-02-06] MEDS ORDERED: CYCLOBENZAPRINE10 MG PO (23:43)
[2019-02-06] MEDS ORDERED: PERCOCET 7.5/321 TAB PO (23:43)
[2019-02-07 00:45] VITALS: BP 145/85
== END 2019-02-07 00:45 | disposition home or self-care (01) ==
LOC: D.ER 23:14
DX: M54.12 Radiculopathy, cervical region (principal)

== ENCOUNTER 2019-02-22 17:18 | Emergency (ER) | payer MEDICARE ==
[~2019-02-22] VITALS: Ht 175.3 cm; Wt 113.6 kg
[~2019-02-22 17:18] MED LIST changes: +FUROSEMIDE20 MG PO; +PERCOCET 7.5/321 TAB PO
[2019-02-22 17:44] VITALS: Ht 175.3 cm; Wt 113.6 kg
[2019-02-22] MEDS ORDERED: MORPHINE SULFAT15 M4 PO (17:47)
[2019-02-22 18:28] LABS: BASOPHILS 0.7 % (0-2); EOSINOPHILS 4.7 % (0-7); HEMATOCRIT 42.6 % (42.0-54.0); HEMOGLOBIN 14.3 g/dL (13.5-17.5); IMMATURE GRANULOCYTES 0.7 % (0-5); LYMPHOCYTES 30.7 % (15-50); MCH 30.6 pg (26.0-34.0); MCHC 33.6 g/dL (31.0-37.0); MCV 91.2 fL (80.0-100.0); MEAN PLATELET VOLUME 10.1 fL (7.4-10.4); MONOCYTES 8.4 % (2-11); NEUTROPHILS 54.8 % (40-80); PLATELET COUNT 247 10x3/uL (130-400); RBC 4.67 10x6/uL (4.20-6.10); RDW 14.1 % (11.5-14.5); WBC 8.9 10x3/uL (4.8-10.8)
[2019-02-22 18:57] LABS: ALBUMIN 3.7 g/dL (3.4-5.0); ANION GAP 11.3 mmol/L (8-16); BILIRUBIN - TOTAL 0.28 mg/dL (0.2-1.3); CALCIUM 8.6 mg/dL (8.5-10.1); CARBON DIOXIDE 29.5 mmol/L (21.0-32.0); CREATININE - SERUM 1.1 mg/dL (0.6-1.3); POTASSIUM - SERUM 3.8 mmol/L (3.5-5.1); PROTEIN - SERUM 7.3 g/dL (6.4-8.2)
[2019-02-22] MEDS ORDERED: AUGMENTIN 875-11 TAB PO (19:36)
[2019-02-22] MEDS ORDERED: PREDNISONE20 MG PO (19:36)
[2019-02-22 20:13] VITALS: BP 129/80
[2019-03-25] MEDS ORDERED: NARCAN SPRAY (12:13)
== END 2019-02-22 20:13 | disposition home or self-care (01) ==
LOC: D.ER 17:18
PROVIDERS: Emergency Medicine
DX: J44.1 Chronic obstructive pulmonary disease with (acute) exacerbation (principal); J40 Bronchitis, not specified as acute or chronic; F17.210 Nicotine dependence, cigarettes, uncomplicated; I10 Essential (primary) hypertension

== ENCOUNTER 2019-03-26 09:30 | Day surgery (SDC) | payer MEDICARE ==
[2019-03-25 13:05] LABS: HEMATOCRIT 42.9 % (42.0-54.0); MCH 30.4 pg (26.0-34.0); MCHC 32.6 g/dL (31.0-37.0); MCV 93.3 fL (80.0-100.0); MEAN PLATELET VOLUME 10.1 fL (7.4-10.4); RBC 4.6 10x6/uL (4.20-6.10); WBC 6.4 10x3/uL (4.8-10.8)
[2019-03-25 13:09] LABS: CALC OSMOLALITY 282 mosm/kg (275-300); CALCIUM 8.6 mg/dL (8.5-10.1); CARBON DIOXIDE 29.1 mmol/L (21.0-32.0); CHLORIDE - SERUM 105 mmol/L (98-107); CREATININE - SERUM 0.9 mg/dL (0.6-1.3); POTASSIUM - SERUM 3.8 mmol/L (3.5-5.1); SODIUM 140 mmol/L (136-145); UREA NITROGEN 10 mg/dL (7-18); eGFR NON AFRICAN AMERICAN > 90 mL/min (90-120)
[2019-03-25 13:10] LABS: GLUCOSE 190 mg/dL (74-106)
[2019-03-26] VITALS (10 sets, daily range): BP systolic 113–155; BP diastolic 57–81; Ht 175.3 cm; Wt 113.6 kg
[~2019-03-26] VITALS: Ht 175.3 cm; Wt 113.6 kg
[~2019-03-26 09:30] MED LIST changes: +AUGMENTIN 875-11 TAB PO; +MORPHINE SULFAT15 M4 PO; +NARCAN SPRAY; +PREDNISONE20 MG PO
[2019-03-26] MEDS ORDERED: PLAVIX75 MG PO (10:59)
--- NOTE | 2019-03-26 11:31 | NUR ---
DR. GUERRERO NOTIFIED AND REVIEWED PT'S BEHAVIOR AND ASSESSMENT RESULTS. PT IS A LOW RISK PER DR. GUERRERO. DR. GUERRERO STATED TO GIVE RESOURCES TO PT AT TIME OF DISCHARGE. NO FURTHER ORDERS AT THIS TIME. RESOURCRES REVIEWED WITH PT AND HE VERBALIZIED UNDERSTANDING.
--- NOTE | 2019-03-26 15:43 | NUR ---
TALKED WITH JOANNA PIÑA ABOUT PT OXYGEN SATURATION STAYING AT 93% ON 6L HIGH FLOW. PT IS A&OX4 BUT FALLS ASLEEP AND SNORES AFTER WAKING UP. HE WAKES UP EASILY BY CALLING HIS NAME AND CAN FOLLOW COMMANDS. I HAVE HAD PT DEEP BREATH SEVERAL TIMES. ANESTHESIA VOCALIZED TO HAVE THE PT BE ON CONTINUOS PULSE OX MONITORING ON THE FLOOR. WILL LET THE NURSE KNOW. WILL CONTINUET TO MONITOR PT.
--- NOTE | 2019-03-26 16:05 | NUR ---
PT ARRIVES TO ROOM VIA BED ESCORTED BY RECOVERY ROOM STAFF. PT IS SLEEPY BUT AROUSABLE WITH VERBAL STIMULATION FOR BRIEF MOMENTS. PT REQUESTS TO WAIT FOR QUESTIONING/HISOTRY AND ASSESSMENT AT THIS TIME. DRESSING TO RIGHT ANTERIOR NECK IS INPLACE AND CDI. VSS. SEE VITALS FLOWSHEET. PT ON 6L O2 VIA HFNC. NO FAMILY AT BEDSIDE. BED IS IN THE LOWEST POSITION. CALL LIGHT AND BEDSIDE TABLE ARE WITHIN REACH. SIDE RAILS X 2. PT DENIES FURTHER NEEDS AT THIS TIME. WILL CONT TO MONITOR.
--- NOTE | 2019-03-26 21:30 | NUR ---
A&O X 4. AMBULATES INDEPENDENTLY. STATES HE ASKED FOR A NICOTINE PATCH SEVERAL HOURS AGO AND HE WILL HAVE, "A NICOTINE FIT," IF HE DOESN'T GET ONE TONIGHT. PACE NOTIFIED AND ORDERS ENTERED PER TELEPHONE CALL. PT INFORMED, SURVEY FIELD TECHNICIAN NOTIFIED TO PULL MED. WILL CONTINUE TO MONITOR.
[2019-03-27 00:46] VITALS: BP 147/82
[2019-03-27 05:31] VITALS: BP 160/83
[2019-03-27 08:20] VITALS: BP 132/83
[2019-03-27 12:21] VITALS: BP 188/91
[2019-03-27 17:29] VITALS: BP 156/71
[2019-03-27 20:00] VITALS: BP 181/89
--- NOTE | 2019-03-27 20:30 | NUR ---
UP AMBULATING IN ROOM. RESP EVEN AND UNALBORED. NO DISTRESS NOTED. INCISION NO NECK WITHOUT REDNESS OR EDEMA NOTED. NO DRAINAGE NOTED AT SITE. IV TO RIGHT WRIST INTACT WITHOUT REDNESS OR EDEMA NOTED. CL IN REACH
[2019-03-28] VITALS: BP 174/76
[2019-03-28 04:00] VITALS: BP 132/72
--- NOTE | 2019-03-28 04:37 | NUR ---
I have reviewed this patient and I concur with the Shift Assessment completed by the Licensed Practical Nurse today this shift.
[2019-03-28 08:40] VITALS: BP 192/91
[2019-03-28 13:22] VITALS: BP 153/77
[2019-03-28] MEDS ORDERED: ROBAXIN PO (16:05)
[2019-03-28] MEDS ORDERED: PERCOCET 10-321 EAC1 PO (16:06)
[2019-03-28 16:46] VITALS: BP 170/83
--- NOTE | 2019-03-28 16:46 | NUR ---
CALLED DR ANNE RE MEDICATIONS FOR D/C. PT TO HOLD PLAVIX UNTIL FRIDAY.
--- NOTE | 2019-03-28 16:59 | NUR ---
IV D/C, TIP INTACT, REVIEWED D/C ORDERS WITH PT, PROVIDED RX, VOICED NO CONCERNS, TAKEN FROM UNIT PER W/C
--- NOTE | 2019-04-23 09:47 | OP ---
PATIENT NAME: SAMANTA OSEGUERA MEDICAL RECORD: [id number] :[birth year] LOCATION:D.OPS ADMISSION DATE: SURGEON: YOVANI LAWSON MD DATE OF OPERATION: 03/26/2019 PREOPERATIVE DIAGNOSES: Osteophyte formation and disc herniation C4-C5 with a spinal cord compression. SURGEON: Yovani Lawson MD PROCEDURE: Anterior cervical discectomy and fusion at C4-C5 with anterior cervical plate and screws, PEEK interbody cage, Abiola DBM with stem cells. DESCRIPTION AND TECHNIQUE: After induction of general endotracheal anesthesia, the patient was positioned supine on the operating table. Neck was prepped and draped in usual sterile fashion. Fluoroscopic x-ray and freer localized the C4-C5 interspace. After infiltration of 1:100,000 epinephrine and 1% lidocaine, a transverse skin incision was carried out from the midline to the sternocleidomastoid muscle. The platysma was divided with a #15 blade. Using blunt and sharp dissection with Metzenbaum scissors, I proceeded in avascular plane medial to the carotid sheath. Next, the C4-C5 interspace was identified with fluoroscopic x-ray and a spinal needle. The longus colli muscles were elevated from bodies of C4 and C5. A self-retaining retractor was placed deep to the longus colli muscles. The Ferguson distracting pins were placed by the C4 and C5. The disc space was incised under distraction. The disc material was removed with pituitary rongeurs and curettes. Osteophytes drilled away posteriorly with a Midas-Cam drill and a microscope. The posterior longitudinal ligament was removed with Cloward rongeurs. The dura was decompressed well. Next, a PEEK interbody cage was placed in the disc space under distraction. Prior to this, the PEEK interbody cage was filled with Abiola bone allograft with stem cells. A [facility] spine separate anterior cervical plate and screws was used to span the C4-C5 interspace. Locking cams were tightened down over the screw heads. Good position of the hardware was confirmed with fluoroscopic x-ray. Meticulous hemostasis was maintained throughout the wound. The wound was irrigated with copious amounts of Ancef irrigant solution. The platysma was closed with interrupted 3-0 Vicryl suture, the subdermal layer was closed with interrupted 4-0 Vicryl suture. The skin was reapproximated with Steri-Strips and benzoin. A sterile dressing was applied to the wound. The patient was awakened in good condition and taken to recovery. All counts were reported as correct. Estimated blood loss was minimal. TRANSINT:[id number] Voice Confirmation ID: [id number] DOCUMENT ID: [id number] YOVANI LAWSON MD at 0947 CC: [id number] DICTATION DATE: 04/07/19 160 PRODUCT INSPECTION SUPERVISOR: 04/07/19 1627 [facility] 03/28/19 [id number] [place] [address]
== END 2019-03-28 17:10 | disposition home or self-care (01) ==
LOC: D.OPS 09:30 → D.MS 09:30 → D.OPS 10:35 → D.PAN 10:45 → D.OPS 11:15 → D.MS 15:53 → D.OPS 03-28 17:10
PROVIDERS: Anesthesiology; ATTEND Neurological Surgery
DX: M50.021 Cervical disc disorder at C4-C5 level with myelopathy (principal); M48.02 Spinal stenosis, cervical region; M25.78 Osteophyte, vertebrae

== ENCOUNTER 2019-05-22 14:13 | Emergency (ER) | payer MEDICARE ==
[~2019-05-22] VITALS: Ht 175.3 cm; Wt 109.1 kg
[~2019-05-22 14:13] MED LIST changes: +PERCOCET 10-321 EAC1 PO; +ROBAXIN PO
[2019-05-22] MEDS ORDERED: SMZ-TMP DS 800-1 TAB PO (14:35)
[2019-05-22 14:36] VITALS: Ht 175.3 cm; Wt 109.1 kg
[2019-05-22] MEDS ORDERED: KEFLEX500 MG PO (15:34)
[2019-05-22] MEDS ORDERED: MONODOX100 MG PO (15:34)
[2019-05-22] MEDS ORDERED: TALWIN NX1 TAB PO (15:36)
[2019-05-22 16:00] VITALS: BP 119/71
== END 2019-05-22 16:00 | disposition home or self-care (01) ==
LOC: D.ER 14:13
DX: L02.212 Cutaneous abscess of back [any part, except buttock and flank] (principal); Z86.73 Personal history of transient ischemic attack (TIA), and cerebral infarction without residual deficits; I10 Essential (primary) hypertension; Z95.5 Presence of coronary angioplasty implant and graft; J44.9 Chronic obstructive pulmonary disease, unspecified; M54.9 Dorsalgia, unspecified; K21.9 Gastro-esophageal reflux disease without esophagitis

== ENCOUNTER 2019-07-21 15:14 | Inpatient (IN) | payer MEDICARE ==
[~2019-07-21] VITALS: Ht 175.3 cm; Wt 104.8 kg
[~2019-07-21 15:14] MED LIST changes: +MONODOX100 MG PO; +SMZ-TMP DS 800-1 TAB PO; +TALWIN NX1 TAB PO
[2019-07-21 16:00] LABS: BASOPHILS 0.3 % (0-2); EOSINOPHILS 0 % (0-7); HEMATOCRIT 43.8 % (42.0-54.0); HEMOGLOBIN 15.2 g/dL (13.5-17.5); IMMATURE GRANULOCYTES 0.8 % (0-5); LYMPHOCYTES 17.5 % (15-50); MCH 30.5 pg (26.0-34.0); MCHC 34.7 g/dL (31.0-37.0); MEAN PLATELET VOLUME 10.3 fL (7.4-10.4); MONOCYTES 10.6 % (2-11); NEUTROPHILS 70.8 % (40-80); PLATELET COUNT 199 10x3/uL (130-400); RBC 4.98 10x6/uL (4.20-6.10); RDW 14.6 % (11.5-14.5); WBC 7.3 10x3/uL (4.8-10.8)
[2019-07-21 16:18] LABS: APTT 28.3 SECONDS (22.8-39.4); INR 1.06 (0.85-1.17); PROTIME 13.7 SECONDS (11.6-15.0)
[2019-07-21 16:37] LABS: CALC OSMOLALITY 281 mosm/kg (275-300); CALCIUM 9.6 mg/dL (8.5-10.1); CARBON DIOXIDE 22.8 mmol/L (21.0-32.0); CHLORIDE - SERUM 100 mmol/L (98-107); CREATININE - SERUM 1.4 mg/dL (0.6-1.3); GLUCOSE 157 mg/dL (74-106); POTASSIUM - SERUM 3.6 mmol/L (3.5-5.1); SODIUM 140 mmol/L (136-145); UREA NITROGEN 12 mg/dL (7-18); eGFR NON AFRICAN AMERICAN 56 mL/min (90-120)
[2019-07-21 17:23] LABS: ALBUMIN 4.2 g/dL (3.4-5.0); ALKALINE PHOSPHATASE 112 U/L (30-120); ALT (SGPT) 30 U/L (10-68); BILIRUBIN - TOTAL 0.57 mg/dL (0.2-1.3); CKMB 5.2 U/L (0.0-3.6); CREATINE KINASE 302 UL (21-232); MAGNESIUM - SERUM 1.8 mg/dL (1.8-2.4); PRO BNP 917 pg/mL (0-125); PROTEIN - SERUM 8.3 g/dL (6.4-8.2); TROPONIN-I < 0.017 ng/mL (0.000-0.060)
--- NOTE | 2019-07-21 19:13 | NUR ---
DID NOT GIVE 325MG ASA, PATIENT RECEIVED 324MG ASA VIA EMS EN ROUTE.
[2019-07-21 20:00] VITALS: BP 136/75
[2019-07-21 21:49] VITALS: BP 136/75; BMI 33.7
[2019-07-21 23:09] LABS: CKMB 6.9 U/L (0.0-3.6)
[2019-07-21 23:13] LABS: CREATINE KINASE 543 UL (21-232); TROPONIN-I < 0.017 ng/mL (0.000-0.060)
[2019-07-22] VITALS: BP 109/70
[2019-07-22 04:00] VITALS: BP 104/56
[2019-07-22 05:15] LABS: BASOPHILS 0.1 % (0-2); EOSINOPHILS 0 % (0-7); HEMATOCRIT 44.4 % (42.0-54.0); HEMOGLOBIN 15.2 g/dL (13.5-17.5); IMMATURE GRANULOCYTES 0.4 % (0-5); LYMPHOCYTES 11.9 % (15-50); MCH 30.8 pg (26.0-34.0); MCHC 34.2 g/dL (31.0-37.0); MCV 89.9 fL (80.0-100.0); MEAN PLATELET VOLUME 10.3 fL (7.4-10.4); MONOCYTES 7.6 % (2-11); PLATELET COUNT 218 10x3/uL (130-400); RBC 4.94 10x6/uL (4.20-6.10); RDW 14.7 % (11.5-14.5)
[2019-07-22 05:36] LABS: CALCIUM 9.2 mg/dL (8.5-10.1); CHLORIDE - SERUM 101 mmol/L (98-107); CKMB 6.3 U/L (0.0-3.6); CREATINE KINASE 538 UL (21-232); CREATININE - SERUM 1.4 mg/dL (0.6-1.3); GLUCOSE 143 mg/dL (74-106); PHOSPHOROUS 4.3 mg/dL (2.5-4.9); POTASSIUM - SERUM 3.6 mmol/L (3.5-5.1); SODIUM 142 mmol/L (136-145); eGFR NON AFRICAN AMERICAN 56 mL/min (90-120)
[2019-07-22 05:37] LABS: CALC OSMOLALITY 287 mosm/kg (275-300); CARBON DIOXIDE 30.7 mmol/L (21.0-32.0); MAGNESIUM - SERUM 2.3 mg/dL (1.8-2.4); TROPONIN-I < 0.017 ng/mL (0.000-0.060); UREA NITROGEN 20 mg/dL (7-18)
[2019-07-22 10:00] VITALS: BP 124/65
--- NOTE | 2019-07-22 11:12 | NUR ---
SITTING UP IN BED. SOB UPON EXERTION. ASSISTED TO BATHROOM. VOID X1. ASSISTED BACK TO BED. CALL LIGHT WITHIN REACH. BED IN LOWEST POSITION. DENIES NEEDS OR PAIN AT THIS TIME. WILL CONTINUE TO MONITOR.
[2019-07-22 11:24] LABS: CKMB 6.4 U/L (0.0-3.6); CREATINE KINASE 532 UL (21-232); TROPONIN-I < 0.017 ng/mL (0.000-0.060)
[2019-07-22 14:04] VITALS: BP 130/76
[2019-07-22 14:13] VITALS: Ht 175.3 cm; Wt 104.8 kg
[2019-07-22 17:07] LABS: BILIRUBIN NEGATIVE (NEGATIVE); GLUCOSE NEGATIVE (NEGATIVE); KETONE SMALL mg/dL (NEGATIVE); NITRITE NEGATIVE (NEGATIVE); UROBILINOGEN NORMAL (NORMAL)
[2019-07-22 18:03] VITALS: BP 131/71
--- NOTE | 2019-07-22 20:14 | NUR ---
REPORT RECIEVED AND ROUNDING COMPLETE. SITTING UP IN BED. ORIENTED X4. REORIENTED TO TIME. SHOWS NO S/SX OF DISTRESS. WEARING NASAL CANNULA AT THIS TIME WITH 02 AT 2L. REQUESTES ANOTHER PAIR OF SOCKS WHEN PM MEDS ARE GIVEN. NO OTHER NEEDS AT THIS TIME. CALL LIGHT WITHIN REACH AND BED IN LOWEST LOCKED POSITION. RIGHT UPPER PIV SALINE LOCKED, NO S/SX IF INFILTRATION.
[2019-07-22 20:30] VITALS: BP 120/71
[2019-07-23 00:30] VITALS: BP 94/59
[2019-07-23 04:30] VITALS: BP 126/64
[2019-07-23 06:38] LABS: BASOPHILS 0.3 % (0-2); EOSINOPHILS 0 % (0-7); HEMOGLOBIN 15.4 g/dL (13.5-17.5); IMMATURE GRANULOCYTES 0.3 % (0-5); LYMPHOCYTES 22.7 % (15-50); MCH 31.1 pg (26.0-34.0); MCHC 34.2 g/dL (31.0-37.0); MCV 90.9 fL (80.0-100.0); MEAN PLATELET VOLUME 10.3 fL (7.4-10.4); MONOCYTES 8.5 % (2-11); NEUTROPHILS 68.2 % (40-80); PLATELET COUNT 231 10x3/uL (130-400); RBC 4.95 10x6/uL (4.20-6.10); RDW 14.9 % (11.5-14.5)
[2019-07-23 06:53] LABS: ANION GAP 16.1 mmol/L (8-16); CALCIUM 8.9 mg/dL (8.5-10.1); CARBON DIOXIDE 27.6 mmol/L (21.0-32.0); CREATININE - SERUM 1.3 mg/dL (0.6-1.3); MAGNESIUM - SERUM 2.3 mg/dL (1.8-2.4); PHOSPHOROUS 4.9 mg/dL (2.5-4.9)
[2019-07-23 07:14] LABS: WBC 10.1 10x3/uL (4.8-10.8)
--- NOTE | 2019-07-23 07:25 | NUR ---
ASSESSMENT DONE. DENIES NEEDS
[2019-07-23 07:51] LABS: POTASSIUM - SERUM 2.7 mmol/L (3.5-5.1)
[2019-07-23 10:46] VITALS: BP 113/73
--- NOTE | 2019-07-23 16:10 | NUR ---
I CONCUR WITH CORPORATE DIRECTOR TALENT ASSESSMENT ASSESSMENT OF THIS PATIENT
[2019-07-23 20:00] VITALS: BP 146/92
[2019-07-24] VITALS: BP 121/55
[2019-07-24 04:00] VITALS: BP 114/76
--- NOTE | 2019-07-24 04:14 | NUR ---
I have reviewed this patient and I concur with the Shift Assessment completed by the Licensed Practical Nurse today this shift.
[2019-07-24 07:02] LABS: BASOPHILS 0.9 % (0-2); EOSINOPHILS 0.5 % (0-7); HEMOGLOBIN 15.8 g/dL (13.5-17.5); IMMATURE GRANULOCYTES 0.3 % (0-5); LYMPHOCYTES 42.1 % (15-50); MCH 30.9 pg (26.0-34.0); MCHC 34.3 g/dL (31.0-37.0); MCV 89.8 fL (80.0-100.0); MEAN PLATELET VOLUME 10.1 fL (7.4-10.4); MONOCYTES 11.7 % (2-11); NEUTROPHILS 44.5 % (40-80); PLATELET COUNT 202 10x3/uL (130-400); RBC 5.12 10x6/uL (4.20-6.10); RDW 14.8 % (11.5-14.5)
[2019-07-24 07:04] LABS: WBC 6.4 10x3/uL (4.8-10.8)
--- NOTE | 2019-07-24 07:14 | NUR ---
ASSESSMENT DONE. DENIES NEEDS
[2019-07-24 07:19] LABS: ANION GAP 10.2 mmol/L (8-16); CALCIUM 8.6 mg/dL (8.5-10.1); CARBON DIOXIDE 31.5 mmol/L (21.0-32.0); CREATININE - SERUM 1.2 mg/dL (0.6-1.3); MAGNESIUM - SERUM 2.2 mg/dL (1.8-2.4); PHOSPHOROUS 4.9 mg/dL (2.5-4.9)
[2019-07-24 07:21] LABS: POTASSIUM - SERUM 2.7 mmol/L (3.5-5.1)
[2019-07-24 09:07] VITALS: BP 118/76
[2019-07-24] MEDS ORDERED: VIBRAMYCIN 100100 MG PO (09:25)
[2019-07-24 13:35] VITALS: BP 118/76
--- NOTE | 2019-07-24 14:45 | MORECARE ---
CASE MANAGEMENT DISCHARGE SUMMARY PATIENT: SAMANTA OSEGUERA UNIT: [id number] ADM DATE: 07/22/19 AGE: 54 : 61 SEX: M ROOM/BED: D.2131 AUTHOR: ADAN MCMAHAN PHYSICIAN: REFERRING PHYSICIAN: MAURILIO FONTENOT MD DATE OF SERVICE: 07/24/19 Discharge Plan Patient Name: SAMANTA OSEGUERA [facility] [facility] 1965 Planned Disposition: Home Anticipated Discharge Date: Discharge Date: Expected LOS: Initial Reviewer: [id number] Initial Review Date: 07/21/2019 Generated: 07/24/19 3:45 pm DCP- Discharge Planning Updated by [email or web address]: Caitlyn Hernandez on 07/23/19 7:[address] LISA SERVED, EXPLAINED, AND SIGNED BY PATIENT. THE ORIGINAL WAS PROVIDED TO THE PATIENT AND COPY PLACED ON CHART. Coverage Notice Reviewer: [id number] - Caitlyn Hernandez Notice Issued Date-Time: 07/22/2019 7:50 Notice Type: Medicare Outpatient Observation Notice Notice Delivered To: Patient Relationship to Patient: Senior Cobol Developer Name: Delivery Method: HAND - Hand Delivered Caridad Days: Prior Verbal Notification: Recipient Understood Notice: Yes Recipient Signature: Yes Med Rec Note Co-signed by Attending: Coverage Notice Comment: LISA SERVED, EXPLAINED, AND SIGNED BY PATIENT. THE ORIGINAL WAS PROVIDED TO THE PATIENT AND COPY PLACED ON CHART. Patient Name: SAMANTA OSEGUERA Page [phone] at 1445 All edits/amendments must be made on the electronic document DICTATION DATE: 07/24/19 1445 HUNTING GUIDE: PAUL 07/24/19 1445 RPT#: [id number] DC DATE: STATUS: ADM IN [facility] [address] [place] [address] END OF REPORT
--- NOTE | 2019-07-24 14:52 | MORECARE ---
CASE MANAGEMENT DISCHARGE SUMMARY PATIENT: SAMANTA OSEGUERA UNIT: [id number] ADM DATE: 07/22/19 AGE: 54 : 61 SEX: M ROOM/BED: D.2131 AUTHOR: MARTIRDOC PHYSICIAN: REFERRING PHYSICIAN: MAURILIO FONTENOT MD DATE OF SERVICE: 07/24/19 Discharge Plan Patient Name: SAMANTA OSEGUERA Facility: [facility]:[place] : 1965 Planned Disposition: Home Anticipated Discharge Date: Discharge Date: Expected LOS: Initial Reviewer: [id number] Initial Review Date: 07/21/2019 Generated: 07/24/19 3:52 pm DCP- Discharge Planning Updated by [email or web address]: Caitlyn Hernandez on 07/23/19 7:[address] LISA SERVED, EXPLAINED, AND SIGNED BY PATIENT. THE ORIGINAL WAS PROVIDED TO THE PATIENT AND COPY PLACED ON CHART. DCPIA - Discharge Planning Initial Assessment Updated by [email or web address]: Sierra Gonzalez on 07/24/19 2:50 pm * Is the patient Alert and Oriented? Yes * How many steps to enter\exit or inside your home? INCLINE * PCP DR SEAMAN * Pharmacy [facility] [place] STATES HE LIVES IN [facility] * Preadmission Environment Home Alone * ADLs Independent * Equipment Cane CPAP Wheelchair * Other Equipment STATES HE NEEDS A NEBULIZER * List name and contact numbers for known caregivers / representatives who currently or will assist patient after discharge: LYNDON GONZALEZ- [phone] * Verbal permission to speak to the caregivers and representatives has been obtained from the patient. No * Community resources currently utilized None * Please name any agencies selected above. PATIENT DENIES HE UTILIZES ANY SERVICES * Additional services required to return to the preadmission environment? No * Can the patient safely return to the preadmission environment? Yes * Has this patient been hospitalized within the prior 30 days at any hospital? No Coverage Notice Reviewer: [id number] Bobby Hernandez Notice Issued Date-Time: 07/22/2019 7:50 Notice Type: Medicare Outpatient Observation Notice Notice Delivered To: Patient Relationship to Patient: Resistor Inspector Name: Delivery Method: HAND - Hand Delivered Caridad Days: Prior Verbal Notification: Recipient Understood Notice: Yes Recipient Signature: Yes Med Rec Note Co-signed by Attending: Coverage Notice Comment: LISA SERVED, EXPLAINED, AND SIGNED BY PATIENT. THE ORIGINAL WAS PROVIDED TO THE PATIENT AND COPY PLACED ON CHART. Last DP export: 07/24/19 1:45 pm Patient Name: SAMANTA OSEGUERA Page [phone] at 1452 All edits/amendments must be made on the electronic document DICTATION DATE: 07/24/191451 SMALL ELECTRIC ENGINE TECHNICIAN: PAUL 07/24/191451 RPT#: [id number] DC DATE: STATUS: ADM IN [facility] [address] [place] [address] END OF REPORT
--- NOTE | 2019-07-24 15:05 | MORECARE ---
CASE MANAGEMENT DISCHARGE SUMMARY PATIENT: SAMANTA OSEGUERA UNIT: [id number] ADM DATE: 07/22/19 AGE: 54 : 61 SEX: M ROOM/BED: D.2131 AUTHOR: MARTIR,DOC PHYSICIAN: REFERRING PHYSICIAN: MAURILIO FONTENOT MD DATE OF SERVICE: 07/24/19 Discharge Plan Patient Name: SAMANTA OSEGUERA Facility: [facility]:[place] : 1965 Planned Disposition: Home Anticipated Discharge Date: Discharge Date: Expected LOS: Initial Reviewer: [id number] Initial Review Date: 07/21/2019 Generated: 07/24/19 4:05 pm Comments DCP- Discharge Planning Updated by [email or web address]: Sierra Gonzalez on 07/24/19 2:[address] CM MET W/ PATIENT REGARDING DISCHARGE PLANNING. CM ADVISED HE WAS BEING DISCHARGED TODAY. HE STATED HE DID NOT FEEL WELL. STATED HE HAD NOT SEEN A DOCTOR. COMPLAINING OF CONTINUED RESPIRATORY ISSUES. HE LIVES IN [facility]. HIS FRIEND, LYNDON GONZALEZ, MAYBE OF ASSISTANCE FOR TRANSPORTATION TO HOME. HE STATES THERE IS NO PHONE IN HIS ROOM. CM WENT TO DESK TO SPEAK WITH HIS PRIMARY NURSE, ANIRUDH. SHE STATES HE HAS A CELL PHONE IN HIS ROOM. PRIMARY AND CM NOTIFIED TRINO & DR FONTENOT OF HIS COMPLAINTS. SHE AND TRINO THE CENTRIFUGE SEPARATOR TENDER, STATED THEY SAW HIM ON ROUNDS TODAY. THEY WILL MONITOR HIM OVER NIGHT. THEY CORRECTED HIS POTASSIUM. HE HAD A REPEAT POTASSIUM DONE. REPORT REC FOR SERUM K+- 3.4 HIS MSO4 HAS BEEN DC'D. ANTIBIOTIC CHANGED TO PO, PATIENT TO BE RE-EVALUATED IN THE AM FOR DISCHARGE TO HOME. DCP- Discharge Planning Updated by [email or web address]: Caitlyn Hernandez on 07/23/19 7:[address] LISA SERVED, EXPLAINED, AND SIGNED BY PATIENT. THE ORIGINAL WAS PROVIDED TO THE PATIENT AND COPY PLACED ON CHART. DCPIA - Discharge Planning Initial Assessment Updated by [email or web address]: Sierra Gonzalez on 07/24/19 2:50 pm * Is the patient Alert and Oriented? Yes * How many steps to enter\exit or inside your home? INCLINE * PCP DR SEAMAN * Pharmacy [facility] HE LIVES IN [facility] * Preadmission Environment Home Alone * ADLs Independent * Equipment Cane CPAP Wheelchair * Other Equipment STATES HE NEEDS A NEBULIZER * List name and contact numbers for known caregivers / representatives who currently or will assist patient after discharge: LYNDON GONZALEZ- [phone] * Verbal permission to speak to the caregivers and representatives has been obtained from the patient. No * Community resources currently utilized None * Please name any agencies selected above. PATIENT DENIES HE UTILIZES ANY SERVICES * Additional services required to return to the preadmission environment? No * Can the patient safely return to the preadmission environment? Yes * Has this patient been hospitalized within the prior 30 days at any hospital? No Coverage Notice Reviewer: [id number] Bobby Hernandez Notice Issued Date-Time: 07/22/2019 7:50 Notice Type: Medicare Outpatient Observation Notice Notice Delivered To: Patient Relationship to Patient: Molder Offbearer Name: Delivery Method: HAND - Hand Delivered Caridad Days: Prior Verbal Notification: Recipient Understood Notice: Yes Recipient Signature: Yes Med Rec Note Co-signed by Attending: Coverage Notice Comment: MARIA L SERVED, EXPLAINED, AND SIGNED BY PATIENT. THE ORIGINAL WAS PROVIDED TO THE PATIENT AND COPY PLACED ON CHART. Last DP export: 07/24/19 1:52 pm Patient Name: SAMANTA OSEGUERA Page [phone] at 1505 All edits/amendments must be made on the electronic document DICTATION DATE: 07/24/19 1505 DUPLICATION SPECIALIST: PAUL 07/24/19 1505 RPT#: [id number] DC DATE: STATUS: ADM IN [facility] [address] [place] [address] END OF REPORT
--- NOTE | 2019-07-24 15:12 | MORECARE ---
CASE MANAGEMENT DISCHARGE SUMMARY PATIENT: SAMANTA OSEGUERA UNIT: [id number] ADM DATE: 07/22/19 AGE: 54 : 61 SEX: M ROOM/BED: D.2136 AUTHOR: MARTIR,DOC PHYSICIAN: REFERRING PHYSICIAN: MAURILIO FONTENOT MD DATE OF SERVICE: 07/24/19 Discharge Plan Patient Name: SAMANTA OSEGUERA Facility: [facility]:[place] : 1965 Planned Disposition: Home Anticipated Discharge Date: Discharge Date: Expected LOS: Initial Reviewer: [email or web address] Initial Review Date: 07/21/2019 Generated: 07/24/19 4:11 pm Comments DCP- Discharge Planning Updated by [email or web address]: Sierra Gonzalez on 07/24/19 2:[address] DME- CANE, WALKER, STATIONARY OXYGEN UNIT, BENCH IS ALREADY IN THE SHOWER. WHEN ASK ABOUT A NEBULIZER. THE PATIENT STATES HE HAD ONE BUT IT DISAPPEARED. NO EXPLANATION. HE NEEDS A NEBULIZER. PCP- DR [facility] [place], [place] DCP- Discharge Planning Updated by [id number]: Sierra Gonzalez on 07/24/19 2:[address] CM MET W/ PATIENT REGARDING DISCHARGE PLANNING. CM ADVISED HE WAS BEING DISCHARGED TODAY. HE STATED HE DID NOT FEEL WELL. STATED HE HAD NOT SEEN A DOCTOR. COMPLAINING OF CONTINUED RESPIRATORY ISSUES. HE LIVES IN [facility]. HIS FRIEND, LYNDON GONZALEZ, MAYBE OF ASSISTANCE FOR TRANSPORTATION TO HOME. HE STATES THERE IS NO PHONE IN HIS ROOM. CM WENT TO DESK TO SPEAK WITH HIS PRIMARY NURSE, ANIRUDH. SHE STATES HE HAS A CELL PHONE IN HIS ROOM. PRIMARY AND CM NOTIFIED TRINO & DR FONTENOT OF HIS COMPLAINTS. SHE AND TRINO THE BIOMECHANICAL ENGINEER, STATED THEY SAW HIM ON ROUNDS TODAY. THEY WILL MONITOR HIM OVER NIGHT. THEY CORRECTED HIS POTASSIUM. HE HAD A REPEAT POTASSIUM DONE. REPORT REC FOR SERUM K+- 3.4 HIS MSO4 HAS BEEN DC'D. ANTIBIOTIC CHANGED TO PO, PATIENT TO BE RE-EVALUATED IN THE AM FOR DISCHARGE TO HOME. DCP- Discharge Planning Updated by [id number]: Caitlyn Hernandez on 07/23/19 7:[address] LISA SERVED, EXPLAINED, AND SIGNED BY PATIENT. THE ORIGINAL WAS PROVIDED TO THE PATIENT AND COPY PLACED ON CHART. DCPIA - Discharge Planning Initial Assessment Updated by [email or web address]: Sierra Gonzalez on 07/24/19 2:50 pm * Is the patient Alert and Oriented? Yes * How many steps to enter\exit or inside your home? INCLINE * PCP DR SEAMAN * Pharmacy [facility] IN [place] STATES HE LIVES IN [facility] * Preadmission Environment Home Alone * ADLs Independent * Equipment Cane CPAP Wheelchair * Other Equipment STATES HE NEEDS A NEBULIZER * List name and contact numbers for known caregivers / representatives who currently or will assist patient after discharge: LYNDON GONZALEZ- [phone] * Verbal permission to speak to the caregivers and representatives has been obtained from the patient. No * Community resources currently utilized None * Please name any agencies selected above. PATIENT DENIES HE UTILIZES ANY SERVICES * Additional services required to return to the preadmission environment? No * Can the patient safely return to the preadmission environment? Yes * Has this patient been hospitalized within the prior 30 days at any hospital? No Coverage Notice Reviewer: [id number] Bobby Hernandez Notice Issued Date-Time: 07/22/2019 7:50 Notice Type: Medicare Outpatient Observation Notice Notice Delivered To: Patient Relationship to Patient: Cisco Unified Communications Engineer Name: Delivery Method: HAND - Hand Delivered Caridad Days: Prior Verbal Notification: Recipient Understood Notice: Yes Recipient Signature: Yes Med Rec Note Co-signed by Attending: Coverage Notice Comment: LISA SERVED, EXPLAINED, AND SIGNED BY PATIENT. THE ORIGINAL WAS PROVIDED TO THE PATIENT AND COPY PLACED ON CHART. Last DP export: 07/24/19 2:05 pm Patient Name: SAMANTA OSEGUERA Page [phone] at 1512 All edits/amendments must be made on the electronic document DICTATION DATE: 07/24/191510 CRAB MEAT PROCESSOR: PAUL 07/24/191510 RPT#: [id number] DC DATE: STATUS: ADM IN [facility] [address] [place] [address] END OF REPORT
--- NOTE | 2019-07-24 17:25 | NUR ---
WITHOUT CHANGES OR DISTRESS NOTED AT THIS TIME. DENIES NEEDS
--- NOTE | 2019-07-24 17:36 | NUR ---
DC GIVEN TO PT
--- NOTE | 2019-07-24 18:14 | NUR ---
DC HOME PER PERSONAL CAR
--- NOTE | 2019-07-26 09:47 | MORECARE ---
CASE MANAGEMENT DISCHARGE SUMMARY PATIENT: SAMANTA OSEGUERA UNIT: [id number] ADM DATE: 07/22/19 AGE: 54 : 61 SEX: M ROOM/BED: D.213 AUTHOR: MARTIR,DOC PHYSICIAN: REFERRING PHYSICIAN: MAURILIO FONTENOT MD DATE OF SERVICE: 07/26/19 Discharge Plan Patient Name: SAMANTA OSEGUERA Facility: [facility]:[place] : 1965 Planned Disposition: Home Anticipated Discharge Date: 07/24/19 Discharge Date: 07/24/2019 Expected LOS: 2 Initial Reviewer: [email or web address] Initial Review Date: 07/21/2019 Generated: 07/26/19 10:46 am Comments DCP- Discharge Planning Updated by [email or web address]: Sierra Gonzalez on 07/24/19 1:[address] DME- CANE, WALKER, STATIONARY OXYGEN UNIT, BENCH IS ALREADY IN THE SHOWER. WHEN ASK ABOUT A NEBULIZER. THE PATIENT STATES HE HAD ONE BUT IT DISAPPEARED. NO EXPLANATION. HE NEEDS A NEBULIZER. PCP- DR SEAMAN PHARMACY- [facility] IN [place], [place] DCP- Discharge Planning Updated by [email or web address]: Sierra Gonzalez on 07/24/19 1:[address] CM MET W/ PATIENT REGARDING DISCHARGE PLANNING. CM ADVISED HE WAS BEING DISCHARGED TODAY. HE STATED HE DID NOT FEEL WELL. STATED HE HAD NOT SEEN A DOCTOR. COMPLAINING OF CONTINUED RESPIRATORY ISSUES. HE LIVES IN [facility]. HIS FRIEND, LYNDON GONZALEZ, MAYBE OF ASSISTANCE FOR TRANSPORTATION TO HOME. HE STATES THERE IS NO PHONE IN HIS ROOM. CM WENT TO DESK TO SPEAK WITH HIS PRIMARY NURSE, ANIRUDH. SHE STATES HE HAS A CELL PHONE IN HIS ROOM. PRIMARY AND CM NOTIFIED TRINO & DR FONTENOT OF HIS COMPLAINTS. SHE AND TRINO THE AIRPLANE CHARTER CLERK, STATED THEY SAW HIM ON ROUNDS TODAY. THEY WILL MONITOR HIM OVER NIGHT. THEY CORRECTED HIS POTASSIUM. HE HAD A REPEAT POTASSIUM DONE. REPORT REC FOR SERUM K+- 3.4 HIS MSO4 HAS BEEN DC'D. ANTIBIOTIC CHANGED TO PO, PATIENT TO BE RE-EVALUATED IN THE AM FOR DISCHARGE TO HOME. DCP- Discharge Planning Updated by [email or web address]: Caitlyn Hernandez on 07/23/19 6:[address] LISA SERVED, EXPLAINED, AND SIGNED BY PATIENT. THE ORIGINAL WAS PROVIDED TO THE PATIENT AND COPY PLACED ON CHART. DCPIA - Discharge Planning Initial Assessment Updated by [email or web address]: Sierra Gonzalez on 07/24/19 2:50 pm * Is the patient Alert and Oriented? Yes * How many steps to enter\exit or inside your home? INCLINE * PCP DR SEAMAN * Pharmacy [facility] IN [place] STATES HE LIVES IN [facility] * Preadmission Environment Home Alone * ADLs Independent * Equipment Cane CPAP Wheelchair * Other Equipment STATES HE NEEDS A NEBULIZER * List name and contact numbers for known caregivers / representatives who currently or will assist patient after discharge: CASSIUSJUSTYN LISA- [phone] * Verbal permission to speak to the caregivers and representatives has been obtained from the patient. No * Community resources currently utilized None * Please name any agencies selected above. PATIENT DENIES HE UTILIZES ANY SERVICES * Additional services required to return to the preadmission environment? No * Can the patient safely return to the preadmission environment? Yes * Has this patient been hospitalized within the prior 30 days at any hospital? No Coverage Notice Reviewer: [id number] - Caitlyn David Notice Issued Date-Time: 07/22/2019 7:50 Notice Type: Medicare Outpatient Observation Notice Notice Delivered To: Patient Relationship to Patient: Deputy Sheriff Court Services Name: Delivery Method: HAND - Hand Delivered Caridad Days: Prior Verbal Notification: Recipient Understood Notice: Yes Recipient Signature: Yes Med Rec Note Co-signed by Attending: Coverage Notice Comment: LISA SERVED, EXPLAINED, AND SIGNED BY PATIENT. THE ORIGINAL WAS PROVIDED TO THE PATIENT AND COPY PLACED ON CHART. Last DP export: 07/24/19 1:12 pm Patient Name: SAMANTA OSEGUERA Page [phone] at 0947 All edits/amendments must be made on the electronic document DICTATION DATE: 07/26/19945 BEAUTICIAN APPRENTICE: PAUL 07/26/19945 RPT#: [id number] DC DATE:07/24/19 STATUS: DIS IN [facility] [address] [place] [address] END OF REPORT
== END 2019-07-24 18:14 | disposition home or self-care (01) | DRG 291 ==
LOC: D.ER 15:14 → D.M2 18:18 → OBSVTIME 18:56 → D.M2 07-22 17:28
PROVIDERS: Emergency Medicine; ADMIT Family Medicine; ATTEND Family Medicine
DX: I11.0 Hypertensive heart disease with heart failure (principal); J96.20 Acute and chronic respiratory failure, unspecified whether with hypoxia or hypercapnia; N17.9 Acute kidney failure, unspecified; I50.30 Unspecified diastolic (congestive) heart failure; F32.9 Major depressive disorder, single episode, unspecified; J44.9 Chronic obstructive pulmonary disease, unspecified; I25.10 Atherosclerotic heart disease of native coronary artery without angina pectoris; E87.6 Hypokalemia; A49.01 Methicillin susceptible Staphylococcus aureus infection, unspecified site; I69.320 Aphasia following cerebral infarction

== ENCOUNTER 2019-08-06 18:57 | Emergency (ER) | payer MEDICARE ==
[~2019-08-06] VITALS: Ht 175.3 cm; Wt 81.8 kg
[~2019-08-06 18:57] MED LIST changes: +VIBRAMYCIN 100100 MG PO
[2019-08-06 19:22] VITALS: Ht 175.3 cm; Wt 81.8 kg
[2019-08-06 20:46] LABS: BASOPHILS 0.5 % (0-2); EOSINOPHILS 2.4 % (0-7); HEMATOCRIT 42.9 % (42.0-54.0); HEMOGLOBIN 14.1 g/dL (13.5-17.5); IMMATURE GRANULOCYTES 0.2 % (0-5); LYMPHOCYTES 27.2 % (15-50); MCH 30.2 pg (26.0-34.0); MCHC 32.9 g/dL (31.0-37.0); MCV 91.9 fL (80.0-100.0); MEAN PLATELET VOLUME 10.6 fL (7.4-10.4); MONOCYTES 7.6 % (2-11); NEUTROPHILS 62.1 % (40-80); PLATELET COUNT 207 10x3/uL (130-400); RBC 4.67 10x6/uL (4.20-6.10); RDW 14.4 % (11.5-14.5); WBC 8.7 10x3/uL (4.8-10.8)
[2019-08-06 20:53] LABS: CALC OSMOLALITY 275 mosm/kg (275-300); CALCIUM 9.3 mg/dL (8.5-10.1); CARBON DIOXIDE 33.7 mmol/L (21.0-32.0); CHLORIDE - SERUM 102 mmol/L (98-107); GLUCOSE 83 mg/dL (74-106); POTASSIUM - SERUM 3.8 mmol/L (3.5-5.1); SODIUM 140 mmol/L (136-145); UREA NITROGEN 7 mg/dL (7-18); eGFR NON AFRICAN AMERICAN 82 mL/min (90-120)
[2019-08-06 20:59] LABS: ALBUMIN 3.4 g/dL (3.4-5.0); ALKALINE PHOSPHATASE 117 U/L (30-120); ALT (SGPT) 23 U/L (10-68); BILIRUBIN - TOTAL 0.43 mg/dL (0.2-1.3)
[2019-08-06 22:26] VITALS: BP 152/84
== END 2019-08-06 22:26 | disposition home or self-care (01) ==
LOC: D.ER 18:57
PROVIDERS: Family Medicine
DX: R22.1 Localized swelling, mass and lump, neck (principal); Z86.73 Personal history of transient ischemic attack (TIA), and cerebral infarction without residual deficits; I10 Essential (primary) hypertension; J44.9 Chronic obstructive pulmonary disease, unspecified; Z72.0 Tobacco use

== ENCOUNTER 2019-10-26 21:06 | Emergency (ER) | payer MEDICARE ==
[~2019-10-26] VITALS: Ht 175.3 cm; Wt 113.6 kg
[2019-10-26 21:15] VITALS: Ht 175.3 cm; Wt 113.6 kg
[2019-10-26 22:05] LABS: BASOPHILS 0.5 % (0-2); EOSINOPHILS 4.3 % (0-7); HEMOGLOBIN 15.4 g/dL (13.5-17.5); IMMATURE GRANULOCYTES 0.4 % (0-5); LYMPHOCYTES 27.1 % (15-50); MCH 30.1 pg (26.0-34.0); MCHC 32.8 g/dL (31.0-37.0); MEAN PLATELET VOLUME 10.2 fL (7.4-10.4); MONOCYTES 6.2 % (2-11); NEUTROPHILS 61.5 % (40-80); PLATELET COUNT 240 10x3/uL (130-400); RBC 5.11 10x6/uL (4.20-6.10); RDW 15.2 % (11.5-14.5); WBC 8.6 10x3/uL (4.8-10.8)
[2019-10-26 22:22] LABS: ANION GAP 8.8 mmol/L (8-16); CALCIUM 8.7 mg/dL (8.5-10.1); CARBON DIOXIDE 31.5 mmol/L (21.0-32.0); CREATININE - SERUM 1.1 mg/dL (0.6-1.3); POTASSIUM - SERUM 3.3 mmol/L (3.5-5.1)
[2019-10-26 22:33] LABS: ALBUMIN 3.9 g/dL (3.4-5.0); BILIRUBIN - TOTAL 0.28 mg/dL (0.2-1.3); PROTEIN - SERUM 7.9 g/dL (6.4-8.2)
[2019-10-26 22:47] LABS: BILIRUBIN NEGATIVE (NEGATIVE); GLUCOSE NEGATIVE (NEGATIVE); KETONE NEGATIVE (NEGATIVE); NITRITE NEGATIVE (NEGATIVE); SPECIFIC GRAVITY 1.025 (1.005-1.020); UROBILINOGEN NORMAL (NORMAL)
[2019-10-26 22:48] LABS: BACTERIA MODERATE /hpf (NEGATIVE); WHITE CELLS - URINE >50 /hpf (NEGATIVE)
[2019-10-26] MEDS ORDERED: OMNICEF300 MG PO (22:57)
[2019-10-26] MEDS ORDERED: FLOMAX0.4 MG PO (22:57)
[2019-10-26 23:29] VITALS: BP 150/88
== END 2019-10-26 23:30 | disposition home or self-care (01) ==
LOC: D.ER 21:06
PROVIDERS: Family Medicine
DX: N39.0 Urinary tract infection, site not specified (principal); I11.0 Hypertensive heart disease with heart failure; I50.9 Heart failure, unspecified; Z86.73 Personal history of transient ischemic attack (TIA), and cerebral infarction without residual deficits; J44.9 Chronic obstructive pulmonary disease, unspecified; Z72.0 Tobacco use; R30.0 Dysuria; R31.9 Hematuria, unspecified

== ENCOUNTER 2020-01-05 01:29 | Emergency (ER) | payer MEDICARE ==
[~2020-01-05] VITALS: Ht 175.3 cm; Wt 102.3 kg
[~2020-01-05 01:29] MED LIST changes: +OMNICEF300 MG PO
[2020-01-05 01:39] VITALS: Ht 175.3 cm; Wt 102.3 kg
[2020-01-05 02:16] LABS: BASOPHILS 0.6 % (0-2); EOSINOPHILS 4.2 % (0-7); HEMATOCRIT 45.6 % (42.0-54.0); HEMOGLOBIN 15.3 g/dL (13.5-17.5); IMMATURE GRANULOCYTES 0.3 % (0-5); LYMPHOCYTES 30.8 % (15-50); MCH 30.8 pg (26.0-34.0); MCHC 33.6 g/dL (31.0-37.0); MCV 91.9 fL (80.0-100.0); MEAN PLATELET VOLUME 9.9 fL (7.4-10.4); MONOCYTES 6.8 % (2-11); NEUTROPHILS 57.3 % (40-80); PLATELET COUNT 219 10x3/uL (130-400); RBC 4.96 10x6/uL (4.20-6.10); RDW 15.7 % (11.5-14.5); WBC 8.7 10x3/uL (4.8-10.8)
[2020-01-05 02:20] LABS: ANION GAP 10.3 mmol/L (8-16); CALCIUM 8.5 mg/dL (8.5-10.1); CARBON DIOXIDE 28.8 mmol/L (21.0-32.0); CREATININE - SERUM 1.3 mg/dL (0.6-1.3); POTASSIUM - SERUM 4.1 mmol/L (3.5-5.1)
[2020-01-05 02:26] LABS: ALBUMIN 3.9 g/dL (3.4-5.0); BILIRUBIN - TOTAL 0.16 mg/dL (0.2-1.3); C-REACTIVE PROTEIN 1.9 mg/dL (0.0-0.9); PROTEIN - SERUM 7.9 g/dL (6.4-8.2)
[2020-01-05 02:40] LABS: UDS - AMPHET NEGATIVE QUAL (NEGATIVE); UDS - BARB NEGATIVE QUAL (NEGATIVE); UDS - BENZO NEGATIVE QUAL (NEGATIVE); UDS - COCAINE NEGATIVE QUAL (NEGATIVE); UDS - OPIATE POSITIVE QUAL (NEGATIVE); UDS - PCP NEGATIVE QUAL (NEGATIVE); UDS - THC POSITIVE QUAL (NEGATIVE)
[2020-01-05 02:44] LABS: BILIRUBIN NEGATIVE (NEGATIVE); GLUCOSE NEGATIVE (NEGATIVE); KETONE NEGATIVE (NEGATIVE); NITRITE NEGATIVE (NEGATIVE); UROBILINOGEN NORMAL (NORMAL)
[2020-01-05 02:46] LABS: EPITHELIAL CELLS 0-5 /hpf (0-5)
[2020-01-05 02:47] LABS: BACTERIA FEW /hpf (NEGATIVE)
[2020-01-05] MEDS ORDERED: FLOMAX0.4 MG PO (02:56)
[2020-01-05] MEDS ORDERED: DOXYCYCLINE HY100 M2 PO (02:56)
[2020-01-05 05:02] VITALS: BP 115/71
== END 2020-01-05 05:03 | disposition home or self-care (01) ==
LOC: D.ER 01:29
PROVIDERS: Family Medicine
DX: N39.0 Urinary tract infection, site not specified (principal); N20.0 Calculus of kidney; R30.0 Dysuria; I11.0 Hypertensive heart disease with heart failure; Z95.5 Presence of coronary angioplasty implant and graft; J44.9 Chronic obstructive pulmonary disease, unspecified; M54.9 Dorsalgia, unspecified

== ENCOUNTER 2020-02-09 22:49 | Emergency (ER) | payer MEDICARE ==
[~2020-02-09] VITALS: Ht 175.3 cm; Wt 115.9 kg
[~2020-02-09 22:49] MED LIST changes: +DOXYCYCLINE HY100 M2 PO
[2020-02-09 22:52] VITALS: Ht 175.3 cm; Wt 115.9 kg
[2020-02-10] MEDS ORDERED: METHOCARBAMOL500 MG PO (00:18)
[2020-02-10 00:39] VITALS: BP 154/76
== END 2020-02-10 00:39 | disposition home or self-care (01) ==
LOC: D.ER 22:49
DX: S00.83XA Contusion of other part of head, initial encounter (principal); S16.1XXA Strain of muscle, fascia and tendon at neck level, initial encounter; S39.012A Strain of muscle, fascia and tendon of lower back, initial encounter; X58.XXXA Exposure to other specified factors, initial encounter; I10 Essential (primary) hypertension; I50.9 Heart failure, unspecified; Z95.5 Presence of coronary angioplasty implant and graft; J44.9 Chronic obstructive pulmonary disease, unspecified; M54.9 Dorsalgia, unspecified

== ENCOUNTER 2020-07-01 19:46 | Outpatient (CLI) | payer MEDICARE ==
[~2020-07-01 19:46] MED LIST changes: +METHOCARBAMOL500 MG PO
[2020-07-01 19:48] VITALS: BMI 34.0
[2020-07-02] MEDS ORDERED: MYSOLINE 50 MG50 MG PO (19:14)
[2020-07-02] MEDS ORDERED: SEROQUEL200 MG PO (19:15)
[2020-07-02] MEDS ORDERED: MORPHINE SULFAT30 M4 PO (19:17)
== END 2020-07-01 21:58 | disposition other institution (70) ==
LOC: D.OPS 19:46
PROVIDERS: ATTEND Family Medicine
DX: I25.110 Atherosclerotic heart disease of native coronary artery with unstable angina pectoris (principal); I24.8 Other forms of acute ischemic heart disease; J96.10 Chronic respiratory failure, unspecified whether with hypoxia or hypercapnia; I50.30 Unspecified diastolic (congestive) heart failure; R55 Syncope and collapse; E78.5 Hyperlipidemia, unspecified; I11.0 Hypertensive heart disease with heart failure; Z86.73 Personal history of transient ischemic attack (TIA), and cerebral infarction without residual deficits; G47.33 Obstructive sleep apnea (adult) (pediatric); J44.9 Chronic obstructive pulmonary disease, unspecified